=== PATIENT | male | born 1940 | race Caucasian/White ===

== ENCOUNTER 2016-03-01 09:51 | Outpatient (RCR) | payer MEDICARE, OTHER ==
--- OUTSIDE RECORDS SUMMARY | 2015-12-15 14:55 | XMS REPORT | Continuity of Care Document ---
Author Author [facility] Organization [facility] Address Unknown Phone Unavailable Care Team Providers Care Netbackup Admin Name Role Phone Joshua Beard PCP [phone] Source Comments Some departments are not documenting in the electronic medical record. If you do not see the information that you expected, contact Release of Information in the Health Information Management department at [phone] for further assistance in locating additional records.[facility] Active Allergies and Adverse Reactions No Known Allergies Current Medications Prescription Sig. Disp. Refills Start End Date Status Date lisinopril/hydrochlorothi Take 1 Tab by mouth Active azide (ZESTORETIC) daily. 20/12.5 mg tablet 1 Tab MULTIVITAMIN PO Take 1 Tab by mouth Active daily. Active Problems Problem Noted Date On supplemental oxygen therapy 01/07/2015 Overview: 2 L Lung cancer (HCC) 01/07/2015 Social History Tobacco Use Types Packs/Day Years Used Date Former Smoker Cigarettes 2 56 Quit: 08/10/2012 Smokeless Tobacco: Chew Current User Alcohol Use Drinks/Week oz/Week Comments Yes 7-10 Shots of 4.2 - 6.0 liquor Last Filed Vital Signs Vital Sign Reading Time Taken Blood Pressure 136/75 01/18/2015 9:00 AM DIRECTOR PRODUCT Pulse 84 01/18/2015 9:00 AM DIRECTOR PRODUCT Temperature 36.5 C (97.7 F) 01/18/2015 8:16 AM DIRECTOR PRODUCT Respiratory Rate - - Height 1.803 m (5' 11") 01/18/2015 6:42 AM DIRECTOR PRODUCT Weight 75.8 kg (167 lb 1.7 oz) 01/18/2015 6:42 AM DIRECTOR PRODUCT Body Mass Index 23.32 01/18/2015 6:42 AM DIRECTOR PRODUCT Oxygen Saturation 93% 01/18/2015 9:00 AM DIRECTOR PRODUCT Plan of Care Health Maintenance Due Date Last Done Comments Physical (Comprehensive) 1947 Exam Pertussis Vaccine 1952 Tetanus Vaccine 1958 Colorectal Cancer 11/28/1991 Screening Shingles Vaccine 2001 Prevnar/Pneumovax (#1) 2006 Influenza Vaccine 11/11/2015 Results from Last 3 Months Not on file
[2016-01-31 14:49] LABS: BASOPHILS % (AUTO) 0 % (0-10); EOSINOPHILS # (AUTO) 0.2 10^3/uL (0.0-0.3); EOSINOPHILS % (AUTO) 2 % (0-10); LYMPHOCYTES # (AUTO) 1.2 X 10^3 (1.0-4.0); LYMPHOCYTES % (AUTO) 17 % (12-44); MEAN CORPUSCULAR HEMOGLOBIN 31 PG (25-34); MEAN CORPUSCULAR HGB CONC 33 G/DL (32-36); MEAN CORPUSCULAR VOLUME 94 FL (80-99); MEAN PLATELET VOLUME 9.4 FL (7.4-10.4); MONOCYTES # (AUTO) 0.8 X 10^3 (0.0-1.0); MONOCYTES % (AUTO) 11 % (0-12); NEUTROPHILS # (AUTO) 4.6 X 10^3 (1.8-7.8); NEUTROPHILS % (AUTO) 69 % (42-75); PLATELET COUNT 264 10^3/uL (130-400); RED BLOOD COUNT 4.94 10^6/uL (4.35-5.85); RED CELL DISTRIBUTION WIDTH 15.9 % (10.0-14.5); WHITE BLOOD COUNT 6.7 10^3/uL (4.3-11.0)
[2016-01-31 15:36] LABS: ALANINE AMINOTRANSFERASE 9 U/L (0-55); ANION GAP 9 MMOL/L (5-14); ASPARTATE AMINO TRANSFERASE 17 U/L (5-34); BILIRUBIN,TOTAL 0.5 MG/DL (0.1-1.0); BLOOD UREA NITROGEN 11 MG/DL (7-18); BUN/CREATININE RATIO 14; CALCIUM 8.8 MG/DL (8.5-10.1); CARBON DIOXIDE 26 MMOL/L (21-32); CHLORIDE 105 MMOL/L (98-107); CREATININE SERUM 0.76 MG/DL (0.60-1.30); GFR ESTIMATED > 60; GLUCOSE 97 MG/DL (70-105); POTASSIUM 3.8 MMOL/L (3.6-5.0); SODIUM 140 MMOL/L (135-145); TOTAL PROTEIN 6.7 G/DL (6.4-8.2)
[~2016-03-01 09:51] MED LIST: HYDR-3812 PO; HYDROcodone/APAP 5 MG/325 MG (LORTAB) CANCER CTR PO ONE; LISI1TAB8 PO; MULT-873 PO
[2016-03-01 10:31] LABS: BASOPHILS % (AUTO) 1 % (0-10); EOSINOPHILS # (AUTO) 0.2 10^3/uL (0.0-0.3); EOSINOPHILS % (AUTO) 3 % (0-10); LYMPHOCYTES # (AUTO) 1.1 X 10^3 (1.0-4.0); LYMPHOCYTES % (AUTO) 17 % (12-44); MEAN CORPUSCULAR HEMOGLOBIN 31 PG (25-34); MEAN CORPUSCULAR HGB CONC 33 G/DL (32-36); MEAN CORPUSCULAR VOLUME 95 FL (80-99); MEAN PLATELET VOLUME 9.4 FL (7.4-10.4); MONOCYTES # (AUTO) 0.7 X 10^3 (0.0-1.0); MONOCYTES % (AUTO) 11 % (0-12); NEUTROPHILS # (AUTO) 4.3 X 10^3 (1.8-7.8); NEUTROPHILS % (AUTO) 68 % (42-75); PLATELET COUNT 219 10^3/uL (130-400); RED BLOOD COUNT 4.73 10^6/uL (4.35-5.85); RED CELL DISTRIBUTION WIDTH 15.4 % (10.0-14.5); WHITE BLOOD COUNT 6.4 10^3/uL (4.3-11.0)
[2016-03-01 11:01] LABS: ALANINE AMINOTRANSFERASE 12 U/L (0-55); ALBUMIN 3.8 G/DL (3.2-4.5); ANION GAP 8 MMOL/L (5-14); ASPARTATE AMINO TRANSFERASE 20 U/L (5-34); BILIRUBIN,TOTAL 0.4 MG/DL (0.1-1.0); BLOOD UREA NITROGEN 14 MG/DL (7-18); BUN/CREATININE RATIO 18; CALCIUM 8.8 MG/DL (8.5-10.1); CARBON DIOXIDE 28 MMOL/L (21-32); CHLORIDE 105 MMOL/L (98-107); CREATININE SERUM 0.77 MG/DL (0.60-1.30); GFR ESTIMATED > 60; GLUCOSE 98 MG/DL (70-105); SODIUM 141 MMOL/L (135-145); TOTAL PROTEIN 6.6 G/DL (6.4-8.2)
== END 2016-03-14 | disposition home or self-care (01) ==
LOC: ONC 09:51
PROVIDERS: ATTEND Internal Medicine Hematology & Oncology
DX: C34.2 Malignant neoplasm of middle lobe, bronchus or lung (principal); C77.1 Secondary and unspecified malignant neoplasm of intrathoracic lymph nodes; I10 Essential (primary) hypertension; J44.9 Chronic obstructive pulmonary disease, unspecified; E03.9 Hypothyroidism, unspecified; I48.91 Unspecified atrial fibrillation; F17.220 Nicotine dependence, chewing tobacco, uncomplicated; Z79.899 Other long term (current) drug therapy; Z79.01 Long term (current) use of anticoagulants
CPT/HCPCS: 36591; 80053; 85025; 99213

== ENCOUNTER → 2016-04-11 | Outpatient (CLI) | payer MEDICARE, OTHER ==
[~2016-04-11] MED LIST changes: -HYDROcodone/APAP 5 MG/325 MG (LORTAB) CANCER CTR PO ONE
== END ==
LOC: EDSTATUS 03-15 11:02 → FS 12:20
PROVIDERS: ATTEND Internal Medicine Hematology & Oncology
DX: C34.2 Malignant neoplasm of middle lobe, bronchus or lung (principal); C77.1 Secondary and unspecified malignant neoplasm of intrathoracic lymph nodes; I10 Essential (primary) hypertension; J44.9 Chronic obstructive pulmonary disease, unspecified; E03.9 Hypothyroidism, unspecified; I48.91 Unspecified atrial fibrillation; F17.220 Nicotine dependence, chewing tobacco, uncomplicated; Z79.899 Other long term (current) drug therapy; Z79.01 Long term (current) use of anticoagulants; Z45.2 Encounter for adjustment and management of vascular access device
CPT/HCPCS: 96523

== ENCOUNTER → 2016-05-23 | Outpatient (CLI) | payer MEDICARE, OTHER ==
--- OUTSIDE RECORDS SUMMARY | 2016-05-23 08:39 | XMS REPORT | Continuity of Care Document ---
Author Author [facility] Organization [facility] Address Unknown Phone Unavailable Care Team Providers Care Recordist Name Role Phone Joshua Beard PCP [phone] Source Comments Some departments are not documenting in the electronic medical record. If you do not see the information that you expected, contact Release of Information in the Health Information Management department at [phone] for further assistance in locating additional records.[facility] Active Allergies and Adverse Reactions No Known [...] Taken Blood Pressure 136/75 01/18/2015 9:00 AM TIMBER TREATING TANK OPERATOR Pulse 84 01/18/2015 9:00 AM TIMBER TREATING TANK OPERATOR Temperature 36.5 C (97.7 F) 01/18/2015 8:16 AM TIMBER TREATING TANK OPERATOR Respiratory Rate - - Height 1.803 m (5' 11") 01/18/2015 6:42 AM TIMBER TREATING TANK OPERATOR Weight 75.8 kg (167 lb 1.7 oz) 01/18/2015 6:42 AM TIMBER TREATING TANK OPERATOR Body Mass Index 23.32 01/18/2015 6:42 AM TIMBER TREATING TANK OPERATOR Oxygen Saturation 93% 01/18/2015 9:00 AM TIMBER TREATING TANK OPERATOR Plan of Care Health Maintenance Due Date Last Done Comments Physical (Comprehensive) 1947 Exam Pertussis Vaccine 1952 Tetanus Vaccine 1958 Colorectal Cancer 11/28/1991 Screening Shingles Vaccine 2001 Prevnar/Pneumovax (#1) 2006 Influenza Vaccine 11/11/2015 Results from Last 3 Months Not on file
--- NOTE | 2016-05-24 11:33 | Diagnostic Imaging Report ---
EXAMINATION: PET-CT. TECHNIQUE: Serum glucose level at the time of the study is: 89 mg/dL. 12.3 mCi of FDG was administered intravenously followed by obtaining PET images with corresponding noncontrast CT scan images. The CT scan was performed for anatomic correlation and attenuation correction and was not performed according to the diagnostic protocol of the areas covered. The scan was performed from the head to mid thighs. INDICATION: Squamous cell lung cancer followup. COMPARISON: 11/30/2015 PET and 02/24/2016 CT scan. FINDINGS: There is interval progression pf significant enlargement of a left lung base nodule now measuring 2.8 cm and is the associated with avid FDG uptake with a maximum SUV of 11. There are also FDG avid small sized left hilar lymph nodes measuring approximately 1 cm in size. There is minimal FDG uptake seen in a subcentimeter right paratracheal lymph node as well. These findings are new from the previous study. The findings are compatible with metastatic disease. There are fibrotic changes seen in the right lung and perihilar region. No significant FDG uptake is seen. Background severe emphysematous changes are noted. A groundglass nodule measuring 1 cm in the left lower lobe laterally at the upper hilar level demonstrates no associated increased FDG uptake. There is no suspicious hypermetabolic mass seen in the head or neck. Symmetric FDG uptake in the brain is noted. In the abdomen and pelvis, there is expected urinary tract activity from tracer excretion with no suspicious hypermetabolic mass or enlarged lymph node. IMPRESSION: Enlarged left lung base with an avidly hypermetabolic nodule now measuring 2.8 cm with associated small hypermetabolic left hilar lymph nodes, compatible with metastases. There is question of an early subcentimeter right paratracheal involved lymph node as well. Dictated by: Dictated on workstation # [id number]
== END ==
LOC: RAD 08:36
PROVIDERS: ATTEND Internal Medicine Hematology & Oncology
DX: C34.2 Malignant neoplasm of middle lobe, bronchus or lung (principal)

== ENCOUNTER → 2016-08-15 | Outpatient (CLI) | payer MEDICARE, OTHER ==
[~2016-08-15] MED LIST changes: +BARIUM SUSPENSION 2.1% (VANILLA SILQ) 450 ML PO ONE; +IOHEXOL 350 MG/ML 100 ML (OMNIPAQUE 350) VIAL IV ONE; +NS 100 ML (IVPB) BAG IV ONE
[2016-08-15] MEDS: CATHETER FLUSH 10 ML SYR IV PRN ×2 (11:53→12:10)
--- NOTE | 2016-08-15 15:34 | Diagnostic Imaging Report ---
Whole body bone scan. Technique: After the intravenous administration of 27 mCi of Technetium 99m MDP, whole body delayed phase bone scan images were obtained with lateral views of the head and neck and the chest regions. Indication: Squamous cell carcinoma. COMPARISON: 08/31/2015 Findings: There is prominent increased activity along the sternoclavicular joints and shoulders and knees. There is increased activity in the cervical spine as well. This is similar to the previous study and is in a degenerative pattern. No developing suspicious foci of increased radiotracer uptake seen to suggest metastatic disease. IMPRESSION: Stable bone scan with no scintigraphic evidence of osseous metastasis. Dictated by: Dictated on workstation # [id number]
--- NOTE | 2016-08-15 17:42 | Diagnostic Imaging Report ---
PROCEDURE: CT chest and abdomen with contrast. TECHNIQUE: Multiple contiguous axial images were obtained through the chest and abdomen after the administration of intravenous contrast. INDICATION: Squamous cell carcinoma. COMPARISON: PET of 05/23/[address] of 02/24/2016. FINDINGS: CT chest: The mass in the left lower lung at the lung base measuring 3.6 x 3.4 cm is slightly larger when compared to the PET of 05/23/2016 when it measured 3.1 x 2.5 cm. In the right lung, there is stable consolidation and air bronchograms in the superior segment of the right lower lobe and posterior perihilar area with small effusion. There is a right perihilar mass which appears stable and is difficult to measure with accuracy due to its complex shape around the superior right pulmonary vein and partially encasing the right main pulmonary artery, mimicking a filling defect. It however appears to be contiguous with extrinsic right perihilar node. Overall size in maximum axial plane is 4.4 x 3.3 cm compatible to prior measurements. An infracarinal lymph node measuring 1 cm is seen. There are slightly enlarged lymph nodes around the left hilum, most prominent is 1.4 cm node larger compared to 02/24/2016 and may correlate with a hypermetabolic left hilar node seen on PET. This can also be compared to the unenhanced localizer CT with the recent PET. No axillary lymphadenopathy is noted. No pericardial or pleural effusion. The heart size is normal. The thoracic aorta is normal in caliber. The osseous structures demonstrate no definite mass. CT abdomen: The liver is fairly homogeneous with no focal mass. The spleen is not enlarged. The pancreas and the adrenal glands appear unremarkable. Cholecystectomy clips are noted. The kidneys have symmetric enhancement and contrast excretion. There is no hydronephrosis. The abdominal aorta demonstrates atherosclerotic changes and mild ectasia distally. No para-aortic significantly enlarged lymph nodes seen. The osseous structures appear grossly unremarkable. IMPRESSION: CT chest: 1. A 3.6 cm left lung base metastasis is minimally enlarged. 2. Mildly enlarged left hilar lymph nodes. 3. Stable right hilar mass with partial encasement of the right main pulmonary artery. 4. Stable posterior right perihilar consolidation. 5. Severe emphysema. CT abdomen: No evidence of metastasis. Dictated by: Dictated on workstation # [id number]
== END ==
LOC: CARD 11:26
PROVIDERS: ATTEND Nurse Practitioner Adult Health
DX: C34.2 Malignant neoplasm of middle lobe, bronchus or lung (principal); J43.9 Emphysema, unspecified
CPT/HCPCS: 71260; 74160; 78306

== ENCOUNTER → 2016-08-23 | Outpatient (RCR) | payer MEDICARE, OTHER ==
--- OUTSIDE RECORDS SUMMARY | 2016-05-25 10:26 | XMS REPORT | Continuity of Care Document ---
Author Author [facility] Organization [facility] Address Unknown Phone Unavailable Care Team Providers Care Dough Mixer Name Role Phone Joshua Beard PCP [phone] Source Comments Some departments are not documenting in the electronic medical record. If you do not see the information that you expected, contact Release of Information in the Health Information Management department at [phone] for further assistance in locating additional records.[facility] Active Allergies and Adverse Reactions No Known [...] Taken Blood Pressure 136/75 01/18/2015 9:00 AM GREEN TIRE INSPECTOR Pulse 84 01/18/2015 9:00 AM GREEN TIRE INSPECTOR Temperature 36.5 C (97.7 F) 01/18/2015 8:16 AM GREEN TIRE INSPECTOR Respiratory Rate - - Height 1.803 m (5' 11") 01/18/2015 6:42 AM GREEN TIRE INSPECTOR Weight 75.8 kg (167 lb 1.7 oz) 01/18/2015 6:42 AM GREEN TIRE INSPECTOR Body Mass Index 23.32 01/18/2015 6:42 AM GREEN TIRE INSPECTOR Oxygen Saturation 93% 01/18/2015 9:00 AM GREEN TIRE INSPECTOR Plan of Care Health Maintenance Due Date Last Done Comments Physical (Comprehensive) 1947 Exam Pertussis Vaccine 1952 Tetanus Vaccine 1958 Colorectal Cancer 11/28/1991 Screening Shingles Vaccine 2001 Prevnar/Pneumovax (#1) 2006 Influenza Vaccine 11/11/2015 Results from Last 3 Months Not on file
[2016-05-25 10:45] LABS: BASOPHILS % (AUTO) 0 % (0-10); EOSINOPHILS # (AUTO) 0.1 10^3/uL (0.0-0.3); EOSINOPHILS % (AUTO) 2 % (0-10); LYMPHOCYTES # (AUTO) 1.1 X 10^3 (1.0-4.0); LYMPHOCYTES % (AUTO) 20 % (12-44); MEAN CORPUSCULAR HEMOGLOBIN 33 PG (25-34); MEAN CORPUSCULAR HGB CONC 33 G/DL (32-36); MEAN CORPUSCULAR VOLUME 98 FL (80-99); MEAN PLATELET VOLUME 9.3 FL (7.4-10.4); MONOCYTES # (AUTO) 0.7 X 10^3 (0.0-1.0); MONOCYTES % (AUTO) 13 % (0-12); NEUTROPHILS # (AUTO) 3.6 X 10^3 (1.8-7.8); NEUTROPHILS % (AUTO) 65 % (42-75); PLATELET COUNT 228 10^3/uL (130-400); RED CELL DISTRIBUTION WIDTH 15.4 % (10.0-14.5); WHITE BLOOD COUNT 5.5 10^3/uL (4.3-11.0)
[2016-05-25 11:09] LABS: ALANINE AMINOTRANSFERASE 10 U/L (0-55); ALBUMIN 3.6 G/DL (3.2-4.5); ANION GAP 10 MMOL/L (5-14); ASPARTATE AMINO TRANSFERASE 16 U/L (5-34); BILIRUBIN,TOTAL 0.5 MG/DL (0.1-1.0); BLOOD UREA NITROGEN 12 MG/DL (7-18); BUN/CREATININE RATIO 15; CALCIUM 8.5 MG/DL (8.5-10.1); CARBON DIOXIDE 26 MMOL/L (21-32); CHLORIDE 107 MMOL/L (98-107); GFR ESTIMATED > 60; GLUCOSE 123 MG/DL (70-105); POTASSIUM 3.7 MMOL/L (3.6-5.0); SODIUM 143 MMOL/L (135-145); TOTAL PROTEIN 6.5 G/DL (6.4-8.2)
[2016-05-30 15:29] LABS: THYROID STIMULATING HORMONE 2.78 UIU/ML (0.35-4.94)
[2016-06-14 09:57] LABS: BASOPHILS % (AUTO) 1 % (0-10); EOSINOPHILS # (AUTO) 0.2 10^3/uL (0.0-0.3); EOSINOPHILS % (AUTO) 3 % (0-10); LYMPHOCYTES # (AUTO) 0.9 X 10^3 (1.0-4.0); LYMPHOCYTES % (AUTO) 13 % (12-44); MEAN CORPUSCULAR HEMOGLOBIN 33 PG (25-34); MEAN CORPUSCULAR HGB CONC 34 G/DL (32-36); MEAN CORPUSCULAR VOLUME 98 FL (80-99); MEAN PLATELET VOLUME 9.7 FL (7.4-10.4); MONOCYTES # (AUTO) 0.8 X 10^3 (0.0-1.0); MONOCYTES % (AUTO) 12 % (0-12); NEUTROPHILS % (AUTO) 72 % (42-75); PLATELET COUNT 186 10^3/uL (130-400); RED BLOOD COUNT 5.09 10^6/uL (4.35-5.85); RED CELL DISTRIBUTION WIDTH 14.6 % (10.0-14.5)
[2016-06-14 10:23] LABS: ALANINE AMINOTRANSFERASE 9 U/L (0-55); ALBUMIN 3.7 G/DL (3.2-4.5); ANION GAP 11 MMOL/L (5-14); ASPARTATE AMINO TRANSFERASE 18 U/L (5-34); BILIRUBIN,TOTAL 0.5 MG/DL (0.1-1.0); BLOOD UREA NITROGEN 8 MG/DL (7-18); BUN/CREATININE RATIO 10; CALCIUM 8.9 MG/DL (8.5-10.1); CARBON DIOXIDE 23 MMOL/L (21-32); CHLORIDE 110 MMOL/L (98-107); GFR ESTIMATED > 60; GLUCOSE 93 MG/DL (70-105); POTASSIUM 3.6 MMOL/L (3.6-5.0); SODIUM 144 MMOL/L (135-145); TOTAL PROTEIN 6.7 G/DL (6.4-8.2)
[2016-06-14 12:20] LABS: THYROID STIMULATING HORMONE 0.33 UIU/ML (0.35-4.94)
[2016-06-28 14:44] LABS: BASOPHILS % (AUTO) 1 % (0-10); EOSINOPHILS # (AUTO) 0.2 10^3/uL (0.0-0.3); EOSINOPHILS % (AUTO) 4 % (0-10); LYMPHOCYTES # (AUTO) 1.2 X 10^3 (1.0-4.0); LYMPHOCYTES % (AUTO) 18 % (12-44); MEAN CORPUSCULAR HEMOGLOBIN 32 PG (25-34); MEAN CORPUSCULAR HGB CONC 33 G/DL (32-36); MEAN CORPUSCULAR VOLUME 98 FL (80-99); MEAN PLATELET VOLUME 9.3 FL (7.4-10.4); MONOCYTES # (AUTO) 0.8 X 10^3 (0.0-1.0); MONOCYTES % (AUTO) 13 % (0-12); NEUTROPHILS # (AUTO) 4.1 X 10^3 (1.8-7.8); NEUTROPHILS % (AUTO) 65 % (42-75); PLATELET COUNT 218 10^3/uL (130-400); RED CELL DISTRIBUTION WIDTH 14.8 % (10.0-14.5); WHITE BLOOD COUNT 6.4 10^3/uL (4.3-11.0)
[2016-06-28 15:11] LABS: ALANINE AMINOTRANSFERASE 8 U/L (0-55); ALBUMIN 3.6 G/DL (3.2-4.5); ANION GAP 9 MMOL/L (5-14); ASPARTATE AMINO TRANSFERASE 16 U/L (5-34); BILIRUBIN,TOTAL 0.4 MG/DL (0.1-1.0); BLOOD UREA NITROGEN 9 MG/DL (7-18); BUN/CREATININE RATIO 12; CALCIUM 8.4 MG/DL (8.5-10.1); CARBON DIOXIDE 25 MMOL/L (21-32); CHLORIDE 109 MMOL/L (98-107); CREATININE SERUM 0.74 MG/DL (0.60-1.30); GFR ESTIMATED > 60; GLUCOSE 98 MG/DL (70-105); POTASSIUM 3.5 MMOL/L (3.6-5.0); SODIUM 143 MMOL/L (135-145); TOTAL PROTEIN 6.3 G/DL (6.4-8.2)
[2016-06-28 15:31] LABS: THYROID STIMULATING HORMONE 1.56 UIU/ML (0.35-4.94)
--- NOTE | 2016-06-28 17:29 | Diagnostic Imaging Report ---
INDICATION: Lung cancer. COPD. FINDINGS: Two views of the chest show normal heart size and vascularity. There is right perihilar atelectasis, infiltrate and/or scarring which is similar to the CT from 02/24/2016. There is a 3.2 cm mass in the left lower lobe which is an increase in size from the prior CT. The remainder of the lungs is clear. There is obstructive airway disease. There is no effusion or pneumothorax. IMPRESSION: Stable right hilum compared to the prior CT. There is a 3.2 cm mass in the left lower lobe which is an increase in size from the prior exam. Dictated by: Dictated on workstation # [id number]
[2016-07-12 13:10] LABS: BASOPHILS % (AUTO) 1 % (0-10); EOSINOPHILS # (AUTO) 0.2 10^3/uL (0.0-0.3); EOSINOPHILS % (AUTO) 3 % (0-10); LYMPHOCYTES # (AUTO) 1.3 X 10^3 (1.0-4.0); LYMPHOCYTES % (AUTO) 21 % (12-44); MEAN CORPUSCULAR HEMOGLOBIN 32 PG (25-34); MEAN CORPUSCULAR HGB CONC 33 G/DL (32-36); MEAN CORPUSCULAR VOLUME 98 FL (80-99); MEAN PLATELET VOLUME 9.5 FL (7.4-10.4); MONOCYTES % (AUTO) 17 % (0-12); NEUTROPHILS # (AUTO) 3.4 X 10^3 (1.8-7.8); NEUTROPHILS % (AUTO) 57 % (42-75); PLATELET COUNT 212 10^3/uL (130-400); RED BLOOD COUNT 5.12 10^6/uL (4.35-5.85); RED CELL DISTRIBUTION WIDTH 14.5 % (10.0-14.5)
[2016-07-12 13:35] LABS: ALANINE AMINOTRANSFERASE 19 U/L (0-55); ALBUMIN 3.9 G/DL (3.2-4.5); ANION GAP 10 MMOL/L (5-14); ASPARTATE AMINO TRANSFERASE 21 U/L (5-34); BILIRUBIN,TOTAL 0.5 MG/DL (0.1-1.0); BLOOD UREA NITROGEN 13 MG/DL (7-18); BUN/CREATININE RATIO 16; CALCIUM 8.7 MG/DL (8.5-10.1); CARBON DIOXIDE 27 MMOL/L (21-32); CHLORIDE 106 MMOL/L (98-107); CREATININE SERUM 0.83 MG/DL (0.60-1.30); GFR ESTIMATED > 60; GLUCOSE 112 MG/DL (70-105); POTASSIUM 3.6 MMOL/L (3.6-5.0); SODIUM 143 MMOL/L (135-145); TOTAL PROTEIN 6.7 G/DL (6.4-8.2)
[2016-07-12 13:56] LABS: THYROID STIMULATING HORMONE 1.16 UIU/ML (0.35-4.94)
--- NOTE | 2016-07-12 15:54 | Diagnostic Imaging Report ---
PA and lateral views of the chest. INDICATION: Squamous cell carcinoma. COMPARISON: 06/28/2016. FINDINGS: There is a left lung base mass measuring 3.1 cm similar to the prior exam. Right infrahilar mass with fibrotic changes and loss of volume is seen similar to the previous study. The heart size is normal. No effusion or pneumothorax. The mediastinum and rita is stable. The infusion port is seen. IMPRESSION: Right infrahilar mass with fibrotic components and left lung base 3.1 cm mass with no significant change from 06/28/2016. Dictated by: Dictated on workstation # [id number]
[2016-07-19 15:20] LABS: BASOPHILS % (AUTO) 1 % (0-10); EOSINOPHILS # (AUTO) 0.3 10^3/uL (0.0-0.3); EOSINOPHILS % (AUTO) 5 % (0-10); LYMPHOCYTES % (AUTO) 17 % (12-44); MEAN CORPUSCULAR HEMOGLOBIN 32 PG (25-34); MEAN CORPUSCULAR HGB CONC 33 G/DL (32-36); MEAN CORPUSCULAR VOLUME 98 FL (80-99); MEAN PLATELET VOLUME 9.7 FL (7.4-10.4); MONOCYTES # (AUTO) 0.9 X 10^3 (0.0-1.0); MONOCYTES % (AUTO) 14 % (0-12); NEUTROPHILS # (AUTO) 3.8 X 10^3 (1.8-7.8); NEUTROPHILS % (AUTO) 63 % (42-75); PLATELET COUNT 189 10^3/uL (130-400); RED BLOOD COUNT 5.29 10^6/uL (4.35-5.85); RED CELL DISTRIBUTION WIDTH 14.2 % (10.0-14.5); WHITE BLOOD COUNT 5.9 10^3/uL (4.3-11.0)
[2016-07-19 15:38] LABS: ALANINE AMINOTRANSFERASE 12 U/L (0-55); ALBUMIN 3.9 G/DL (3.2-4.5); ANION GAP 8 MMOL/L (5-14); ASPARTATE AMINO TRANSFERASE 17 U/L (5-34); BILIRUBIN,TOTAL 0.5 MG/DL (0.1-1.0); BLOOD UREA NITROGEN 10 MG/DL (7-18); BUN/CREATININE RATIO 12; CARBON DIOXIDE 27 MMOL/L (21-32); CHLORIDE 106 MMOL/L (98-107); CREATININE SERUM 0.83 MG/DL (0.60-1.30); GFR ESTIMATED > 60; GLUCOSE 102 MG/DL (70-105); POTASSIUM 4.5 MMOL/L (3.6-5.0); SODIUM 141 MMOL/L (135-145); TOTAL PROTEIN 6.8 G/DL (6.4-8.2)
--- NOTE | 2016-07-26 10:07 | Diagnostic Imaging Report ---
INDICATION: History of lung cancer. COMPARISON: 07/12/2016 FINDINGS: Frontal and lateral radiographic views of the chest were obtained and again demonstrate dense opacification of the right perihilar region with mild asymmetric volume loss and tenting of the right hemidiaphragm. Mass like opacity is again identified within the left lung base. Overall, aeration is unchanged. There is no large effusion or pneumothorax. Cardiac silhouette and pulmonary vasculature is stable. Left-sided subclavian Port-A-Cath is again noted and is stable in position. IMPRESSION: 1. Stable appearance of the chest as described above. Dictated by: Dictated on workstation # [id number]
[2016-07-26 10:28] LABS: BASOPHILS % (AUTO) 0 % (0-10); EOSINOPHILS # (AUTO) 0.3 10^3/uL (0.0-0.3); EOSINOPHILS % (AUTO) 4 % (0-10); LYMPHOCYTES # (AUTO) 0.9 X 10^3 (1.0-4.0); LYMPHOCYTES % (AUTO) 13 % (12-44); MEAN CORPUSCULAR HEMOGLOBIN 33 PG (25-34); MEAN CORPUSCULAR HGB CONC 33 G/DL (32-36); MEAN CORPUSCULAR VOLUME 97 FL (80-99); MEAN PLATELET VOLUME 9.5 FL (7.4-10.4); MONOCYTES # (AUTO) 0.7 X 10^3 (0.0-1.0); MONOCYTES % (AUTO) 10 % (0-12); NEUTROPHILS # (AUTO) 5.1 X 10^3 (1.8-7.8); NEUTROPHILS % (AUTO) 73 % (42-75); PLATELET COUNT 187 10^3/uL (130-400); RED BLOOD COUNT 5.07 10^6/uL (4.35-5.85); RED CELL DISTRIBUTION WIDTH 14.4 % (10.0-14.5)
[2016-07-26 10:53] LABS: ALANINE AMINOTRANSFERASE 15 U/L (0-55); ALBUMIN 3.7 G/DL (3.2-4.5); ANION GAP 6 MMOL/L (5-14); ASPARTATE AMINO TRANSFERASE 17 U/L (5-34); BILIRUBIN,TOTAL 0.6 MG/DL (0.1-1.0); BLOOD UREA NITROGEN 11 MG/DL (7-18); BUN/CREATININE RATIO 15; CALCIUM 8.9 MG/DL (8.5-10.1); CARBON DIOXIDE 27 MMOL/L (21-32); CHLORIDE 109 MMOL/L (98-107); CREATININE SERUM 0.75 MG/DL (0.60-1.30); GFR ESTIMATED > 60; GLUCOSE 102 MG/DL (70-105); POTASSIUM 3.7 MMOL/L (3.6-5.0); SODIUM 142 MMOL/L (135-145); TOTAL PROTEIN 6.4 G/DL (6.4-8.2)
--- NOTE | 2016-08-09 13:09 | Diagnostic Imaging Report ---
INDICATION: Lung cancer. PA and lateral chest. There is a large right infrahilar mass. There is a 3.8-cm mass in the left lower lung. Right hilar mass measures approximately 5.4 cm in diameter. Left subclavian Port-A-Cath tip projects over the SVC. There are emphysematous changes in the right upper lung. IMPRESSION: Right hilar and left lower lobe lung mass is unchanged from 07/26/2016. No acute abnormality seen. Dictated by: Dictated on workstation # [id number]
[2016-08-09 13:30] LABS: BASOPHILS % (AUTO) 0 % (0-10); EOSINOPHILS # (AUTO) 0.4 10^3/uL (0.0-0.3); EOSINOPHILS % (AUTO) 6 % (0-10); LYMPHOCYTES # (AUTO) 1.3 X 10^3 (1.0-4.0); LYMPHOCYTES % (AUTO) 18 % (12-44); MEAN CORPUSCULAR HEMOGLOBIN 32 PG (25-34); MEAN CORPUSCULAR HGB CONC 33 G/DL (32-36); MEAN CORPUSCULAR VOLUME 98 FL (80-99); MEAN PLATELET VOLUME 9.6 FL (7.4-10.4); MONOCYTES # (AUTO) 0.8 X 10^3 (0.0-1.0); MONOCYTES % (AUTO) 11 % (0-12); NEUTROPHILS # (AUTO) 4.7 X 10^3 (1.8-7.8); NEUTROPHILS % (AUTO) 65 % (42-75); PLATELET COUNT 222 10^3/uL (130-400); RED BLOOD COUNT 5.17 10^6/uL (4.35-5.85); RED CELL DISTRIBUTION WIDTH 14.9 % (10.0-14.5); WHITE BLOOD COUNT 7.2 10^3/uL (4.3-11.0)
[2016-08-09 13:55] LABS: ALANINE AMINOTRANSFERASE 11 U/L (0-55); ALBUMIN 3.7 G/DL (3.2-4.5); ANION GAP 10 MMOL/L (5-14); ASPARTATE AMINO TRANSFERASE 15 U/L (5-34); BILIRUBIN,TOTAL 0.4 MG/DL (0.1-1.0); BLOOD UREA NITROGEN 12 MG/DL (7-18); BUN/CREATININE RATIO 15; CALCIUM 8.7 MG/DL (8.5-10.1); CARBON DIOXIDE 25 MMOL/L (21-32); CHLORIDE 108 MMOL/L (98-107); CREATININE SERUM 0.82 MG/DL (0.60-1.30); GFR ESTIMATED > 60; GLUCOSE 105 MG/DL (70-105); POTASSIUM 3.5 MMOL/L (3.6-5.0); SODIUM 143 MMOL/L (135-145); TOTAL PROTEIN 6.5 G/DL (6.4-8.2)
[~2016-08-23] VITALS: Ht 182.9 cm; Wt 77.1 kg
[~2016-08-23] MED LIST changes: -BARIUM SUSPENSION 2.1% (VANILLA SILQ) 450 ML PO ONE; -IOHEXOL 350 MG/ML 100 ML (OMNIPAQUE 350) VIAL IV ONE; +NIVOLUMAB 200 MG, NIVOLUMAB 40 MG in NS (IVPB) CANCER CENTER 50 ML IV SCH; -NS 100 ML (IVPB) BAG IV ONE; +NS IV 500 ML (CANCER CENTER) 500 ML IV SCH
[2016-08-23 14:58] LABS: BASOPHILS % (AUTO) 0 % (0-10); EOSINOPHILS # (AUTO) 0.3 10^3/uL (0.0-0.3); EOSINOPHILS % (AUTO) 4 % (0-10); LYMPHOCYTES # (AUTO) 1.3 X 10^3 (1.0-4.0); LYMPHOCYTES % (AUTO) 16 % (12-44); MEAN CORPUSCULAR HEMOGLOBIN 32 PG (25-34); MEAN CORPUSCULAR HGB CONC 33 G/DL (32-36); MEAN CORPUSCULAR VOLUME 98 FL (80-99); MONOCYTES # (AUTO) 0.8 X 10^3 (0.0-1.0); MONOCYTES % (AUTO) 10 % (0-12); NEUTROPHILS # (AUTO) 5.5 X 10^3 (1.8-7.8); NEUTROPHILS % (AUTO) 70 % (42-75); PLATELET COUNT 189 10^3/uL (130-400); RED BLOOD COUNT 5.15 10^6/uL (4.35-5.85); RED CELL DISTRIBUTION WIDTH 14.9 % (10.0-14.5); WHITE BLOOD COUNT 7.9 10^3/uL (4.3-11.0)
[2016-08-23 15:15] LABS: ALANINE AMINOTRANSFERASE 11 U/L (0-55); ALBUMIN 3.9 GM/DL (3.2-4.5); ANION GAP 13 MMOL/L (5-14); ASPARTATE AMINO TRANSFERASE 18 U/L (5-34); BILIRUBIN,TOTAL 0.7 MG/DL (0.1-1.0); BLOOD UREA NITROGEN 16 MG/DL (7-18); BUN/CREATININE RATIO 19 (0-20); CALCIUM 8.9 MG/DL (8.5-10.1); CARBON DIOXIDE 23 MMOL/L (21-32); CHLORIDE 105 MMOL/L (98-107); CREATININE SERUM 0.85 MG/DL (0.60-1.30); GFR ESTIMATED > 60; GLUCOSE 91 MG/DL (70-105); POTASSIUM 3.9 MMOL/L (3.6-5.0); SODIUM 141 MMOL/L (135-145); TOTAL PROTEIN 6.5 GM/DL (6.4-8.2)
[2016-08-23 15:35] LABS: THYROID STIMULATING HORMONE 5.09 UIU/ML (0.35-4.94)
== END | disposition home or self-care (01) ==
LOC: ONC 05-25 10:23
PROVIDERS: ATTEND Internal Medicine Hematology & Oncology
DX: C34.2 Malignant neoplasm of middle lobe, bronchus or lung (principal); C77.1 Secondary and unspecified malignant neoplasm of intrathoracic lymph nodes; I10 Essential (primary) hypertension; J44.9 Chronic obstructive pulmonary disease, unspecified; E03.9 Hypothyroidism, unspecified; I48.91 Unspecified atrial fibrillation; F17.220 Nicotine dependence, chewing tobacco, uncomplicated; Z79.899 Other long term (current) drug therapy; Z79.01 Long term (current) use of anticoagulants; Z45.2 Encounter for adjustment and management of vascular access device
CPT/HCPCS: 36591; 71020; 80053; 84443; 85025; 96413; 99213

== ENCOUNTER → 2016-08-23 | Outpatient (CLI) | payer MEDICARE, OTHER ==
[~2016-08-23] MED LIST changes: +GADOBUTROL 7.5 MMOL/7.5 ML (GADAVIST) VIAL IV ONE; -NIVOLUMAB 200 MG, NIVOLUMAB 40 MG in NS (IVPB) CANCER CENTER 50 ML IV SCH; -NS IV 500 ML (CANCER CENTER) 500 ML IV SCH
--- NOTE | 2016-08-23 18:43 | Diagnostic Imaging Report ---
PROCEDURE: MR imaging of the brain with and without contrast. TECHNIQUE: Multiplanar, multisequence MR imaging of the brain was performed with and without contrast. INDICATION: History of lung carcinoma. Treated for cancer one and half years ago. Now having lightheadedness and dizziness since this morning. EXAMINATION: MRI brain with and without contrast 08/23/2016 Correlation made to a brain MRI dated 01/04/2015 FINDINGS: There is no evidence for restricted diffusion. Mild atrophy is noted. There are chronic ischemic changes in a periventricular distribution with deep white matter ischemic changes chronic in appearance. No mass, mass effect, or midline shift is seen and there is no hydrocephalus. Postcontrast images demonstrate normal enhancement with no abnormally enhancing masses or lesions appreciated. The paranasal sinuses and mastoid air cells demonstrate chronic appearing mucosal thickening with no acute disease visualized. IMPRESSION: 1. Chronic changes as discussed above with no acute abnormality appreciated. Dictated by: Dictated on workstation # [id number]
== END ==
LOC: RAD 15:59
PROVIDERS: ATTEND Nurse Practitioner Adult Health
DX: R42 Dizziness and giddiness (principal); R26.81 Unsteadiness on feet; R53.1 Weakness; C34.2 Malignant neoplasm of middle lobe, bronchus or lung
CPT/HCPCS: 70553

== ENCOUNTER → 2016-09-22 | Outpatient (CLI) | payer MEDICARE, OTHER ==
[~2016-09-22] MED LIST changes: -GADOBUTROL 7.5 MMOL/7.5 ML (GADAVIST) VIAL IV ONE
== END ==
LOC: CARD 10:32
PROVIDERS: ATTEND Internal Medicine Hematology & Oncology
DX: C34.2 Malignant neoplasm of middle lobe, bronchus or lung (principal); R55 Syncope and collapse; R42 Dizziness and giddiness; R00.0 Tachycardia, unspecified
CPT/HCPCS: 93306

== ENCOUNTER 2016-10-02 10:51 | Outpatient (RCR) | payer MEDICARE, OTHER | END 2016-12-09 | disposition home or self-care (01) | LOC: CARD 10:51 | PROVIDERS: ATTEND Internal Medicine Interventional Cardiology | DX: R42 Dizziness and giddiness; I45.9 Conduction disorder, unspecified | CPT/HCPCS: 93225; 93226 ==

== ENCOUNTER 2016-10-04 10:56 | Outpatient (RCR) | payer MEDICARE, OTHER | END 2016-12-09 | disposition home or self-care (01) | LOC: CARD 10:56 | PROVIDERS: ATTEND Internal Medicine Interventional Cardiology | DX: R42 Dizziness and giddiness; I45.9 Conduction disorder, unspecified ==

== ENCOUNTER → 2016-10-18 | Outpatient (CLI) | payer MEDICARE, OTHER ==
--- NOTE | 2016-10-18 14:37 | Diagnostic Imaging Report ---
PROCEDURE: CT chest and abdomen with contrast. TECHNIQUE: Multiple contiguous axial images were obtained through the chest and abdomen after the administration of intravenous contrast. INDICATION: COPD. History of lung cancer. Followup. COMPARISON: 08/15/2016 FINDINGS: CT chest: Evaluation of the lung johnson again demonstrates soft tissue mass within the lateral left lung base. This has increased in size when compared to prior exam. It now measures approximately 4.1 x 4.3 x 3.1 cm. This is in comparison to 3.5 x 3.6 x 2.4 cm previously. Prominent left hilar lymph node is stable, as it measures 1.1 x 1.2 cm on today's study, in comparison to similar remeasurements of 1.2 x 1.3 cm previously. There is background of severe obstructive disease. There is no new effusion or pneumothorax on the left. On the right, there is persistent soft tissue prominence about the right hilum. Findings are likely on the basis of residual soft tissue density with adjacent atelectasis and probable radiation changes. Small right effusion is also again noted. Overall, appearance on the right is stable. Bronchiectatic changes are again noted. Cardiomediastinal structures show normal heart size. There is no large pericardial effusion. There is calcified aortic and coronary atherosclerosis. Bony structures show age-related degenerative changes. No lytic or blastic osseous lesions are identified. CT abdomen: Multiple subcentimeter hypoenhancing renal parenchymal foci are noted, bilaterally. These are too small to adequately characterize on this exam, but are stable compared to prior study. Otherwise, the kidneys, adrenal glands, spleen, pancreas, and liver have a normal CT appearance. Included small bowel loops are nondistended. Normal appendix is included on this exam. There is no loculated fluid collection, free fluid, nor free air within the abdomen. No abnormal mesenteric or retroperitoneal adenopathy is seen. There is focal ectasia of the infrarenal abdominal aorta as it measures 2.8 x 2 cm. There is also diffuse calcified and noncalcified aortic atherosclerosis. Bony structures show no acute abnormalities. IMPRESSION: 1. Interval increase in size of malignant-appearing soft tissue mass in the left lung base. 2. Stable adjacent hilar adenopathy. 3. Stable prominent density about the right hilum with associated volume loss on the right with bronchiectasis and patchy and scattered airspace disease. Again, findings may be on the basis of residual soft tissue density with associated atelectasis and radiation changes. Overall appearance on the right is stable. 4. Multiple subcentimeter hypoenhancing rounded renal foci. Again, these may be on the basis of small cysts, but are too small to adequately characterize. Overall, appearance, however, is stable. 5. No adverse interval change to the abdomen. Dictated by: Dictated on workstation # [id number]
== END ==
LOC: RAD 12:38
PROVIDERS: ATTEND Nurse Practitioner Adult Health
DX: C34.2 Malignant neoplasm of middle lobe, bronchus or lung (principal); J44.9 Chronic obstructive pulmonary disease, unspecified; J47.9 Bronchiectasis, uncomplicated
CPT/HCPCS: 71260; 74160

== ENCOUNTER → 2016-10-31 | Outpatient (CLI) | payer MEDICARE, OTHER ==
--- NOTE | 2016-11-01 12:11 | Diagnostic Imaging Report ---
PET/CT. INDICATION: Squamous cell carcinoma of the lung. TECHNIQUE: PET/CT imaging was obtained from the base of the skull through the pelvis after the administration Of 11.26 mCi of F-[address] imaging was utilized for localization and attenuation correction purposes. The low energy CT utilized for attenuation correction is not considered to be of high enough spatial resolution to allow in and of itself a separate anatomical analysis. The previous PET/CT exam performed on 05/23/2016, noted an enlarged avidly hypermetabolic nodule in the left lung base with small hypermetabolic nodes. The nodule measured approximately 2.8 cm in size and had a maximum SUV of 11. The recent CT chest and abdomen exam of 10/18/2016, indicated that the nodule in the left lung base had increased in size and that it now measured 4.1 x 4.3 x 3.1 cm as opposed to 3.5 x 3.6 x 2.4 cm. The hilar adenopathy appeared stable. On this exam the mass in the left lung base is again evident. The mass is larger than noted on the previous PET/CT exam although not significantly changed when compared to the recent CT chest and abdomen exam. The mass remains hypermetabolic with a maximum SUV of 9.0. The two small slightly hypermetabolic nodes in the left hilum noted on the prior study are again evident and minimally larger. On the prior exam these nodes had a maximum SUV of 4.5. On this study the maximum SUV is now 5. There is also another node in the right paratracheal region which does seem more conspicuous than on the prior exam. This has a maximum SUV of 3.4. On the prior exam the maximum SUV in this area was only 1.8. Consequently this node may also be involved by neoplasm. In addition there is now a small focus of increased metabolic activity in the left supraclavicular region. This has developed in the interval since the prior exam, and this area has a maximum SUV of 4.3. There is a similar sized but less hyperintense (maximum SUV of 1.8) nodule in this same region. There is still no hypermetabolic activity below the diaphragm or in the neck. Physiologic activity is again seen in the kidneys, bowel, and bladder. The CT images do show that there is persistent volume loss in the right lung and that there is a prominent area of atelectasis/infiltrate in the right infrahilar region. These findings are similar to the prior exam. There are also severe emphysematous changes involving both lungs. The CT images fail to show any sign of an acute abnormality. There are innumerable diverticula in the sigmoid colon, but there is no sign of acute diverticulitis. The images of the intracranial contents are unremarkable for an acute abnormality. IMPRESSION: 1. The mass in the left lung base seen previously has increased in size since the prior PET/CT exam and still remains hypermetabolic. The nodes in the left hilum have not changed significantly in size but are slightly more hypermetabolic. New nodes in the right paratracheal region and in the left supraclavicular area have also developed, and these are slightly hypermetabolic and worrisome for neoplastic disease as well. 2. There is no other hypermetabolic activity to suggest the presence of neoplasm. 3. There is persistent prominent area of atelectasis/infiltrate in the right infrahilar region. 4. These [facility] Dictated by: Dictated on workstation # [id number]
== END ==
LOC: RAD 09:13
PROVIDERS: ATTEND Internal Medicine Hematology & Oncology
DX: C34.2 Malignant neoplasm of middle lobe, bronchus or lung (principal)

== ENCOUNTER 2016-11-20 12:56 | Outpatient (RCR) | payer MEDICARE, OTHER ==
[2016-09-06 10:24] LABS: BASOPHILS # (AUTO) 0.1 10^3/uL (0.0-0.1); BASOPHILS % (AUTO) 1 % (0-10); EOSINOPHILS # (AUTO) 0.3 10^3/uL (0.0-0.3); EOSINOPHILS % (AUTO) 5 % (0-10); LYMPHOCYTES # (AUTO) 1.1 X 10^3 (1.0-4.0); LYMPHOCYTES % (AUTO) 15 % (12-44); MEAN CORPUSCULAR HEMOGLOBIN 32 PG (25-34); MEAN CORPUSCULAR HGB CONC 33 G/DL (32-36); MEAN CORPUSCULAR VOLUME 98 FL (80-99); MEAN PLATELET VOLUME 9.5 FL (7.4-10.4); MONOCYTES # (AUTO) 0.7 X 10^3 (0.0-1.0); MONOCYTES % (AUTO) 9 % (0-12); NEUTROPHILS # (AUTO) 5.2 X 10^3 (1.8-7.8); NEUTROPHILS % (AUTO) 70 % (42-75); PLATELET COUNT 214 10^3/uL (130-400); RED CELL DISTRIBUTION WIDTH 14.9 % (10.0-14.5); WHITE BLOOD COUNT 7.4 10^3/uL (4.3-11.0)
[2016-09-06 10:54] LABS: ALANINE AMINOTRANSFERASE 13 U/L (0-55); ALBUMIN 3.7 GM/DL (3.2-4.5); ANION GAP 10 MMOL/L (5-14); ASPARTATE AMINO TRANSFERASE 17 U/L (5-34); BILIRUBIN,TOTAL 0.4 MG/DL (0.1-1.0); BLOOD UREA NITROGEN 12 MG/DL (7-18); BUN/CREATININE RATIO 14; CALCIUM 8.9 MG/DL (8.5-10.1); CARBON DIOXIDE 26 MMOL/L (21-32); CHLORIDE 107 MMOL/L (98-107); CREATININE SERUM 0.85 MG/DL (0.60-1.30); GFR ESTIMATED > 60; GLUCOSE 125 MG/DL (70-105); HEMOLYSIS 19 (-100-29); ICTERUS 0.3 (-100-1.9); LIPEMIA 25 (-100-49); POTASSIUM 3.8 MMOL/L (3.6-5.0); SODIUM 143 MMOL/L (135-145)
[2016-09-06 11:15] LABS: THYROID STIMULATING HORMONE 5.33 UIU/ML (0.35-4.94)
[2016-09-20 13:01] LABS: BASOPHILS % (AUTO) 1 % (0-10); EOSINOPHILS # (AUTO) 0.4 10^3/uL (0.0-0.3); EOSINOPHILS % (AUTO) 6 % (0-10); LYMPHOCYTES # (AUTO) 1.2 X 10^3 (1.0-4.0); LYMPHOCYTES % (AUTO) 17 % (12-44); MEAN CORPUSCULAR HEMOGLOBIN 32 PG (25-34); MEAN CORPUSCULAR HGB CONC 33 G/DL (32-36); MEAN CORPUSCULAR VOLUME 99 FL (80-99); MEAN PLATELET VOLUME 9.5 FL (7.4-10.4); MONOCYTES # (AUTO) 0.6 X 10^3 (0.0-1.0); MONOCYTES % (AUTO) 9 % (0-12); NEUTROPHILS # (AUTO) 4.7 X 10^3 (1.8-7.8); NEUTROPHILS % (AUTO) 67 % (42-75); PLATELET COUNT 240 10^3/uL (130-400); RED BLOOD COUNT 4.86 10^6/uL (4.35-5.85); RED CELL DISTRIBUTION WIDTH 14.7 % (10.0-14.5); WHITE BLOOD COUNT 6.9 10^3/uL (4.3-11.0)
[2016-09-20 13:24] LABS: ALANINE AMINOTRANSFERASE 12 U/L (0-55); ALBUMIN 3.6 GM/DL (3.2-4.5); ANION GAP 8 MMOL/L (5-14); ASPARTATE AMINO TRANSFERASE 15 U/L (5-34); BILIRUBIN,TOTAL 0.4 MG/DL (0.1-1.0); BLOOD UREA NITROGEN 14 MG/DL (7-18); BUN/CREATININE RATIO 18; CALCIUM 8.7 MG/DL (8.5-10.1); CARBON DIOXIDE 26 MMOL/L (21-32); CHLORIDE 109 MMOL/L (98-107); CREATININE SERUM 0.76 MG/DL (0.60-1.30); GFR ESTIMATED > 60; GLUCOSE 107 MG/DL (70-105); POTASSIUM 4.1 MMOL/L (3.6-5.0); SODIUM 143 MMOL/L (135-145); TOTAL PROTEIN 6.6 GM/DL (6.4-8.2)
[2016-09-27 12:35] LABS: BASOPHILS % (AUTO) 1 % (0-10); EOSINOPHILS # (AUTO) 0.4 10^3/uL (0.0-0.3); EOSINOPHILS % (AUTO) 6 % (0-10); LYMPHOCYTES # (AUTO) 1.2 X 10^3 (1.0-4.0); LYMPHOCYTES % (AUTO) 16 % (12-44); MEAN CORPUSCULAR HEMOGLOBIN 32 PG (25-34); MEAN CORPUSCULAR HGB CONC 33 G/DL (32-36); MEAN CORPUSCULAR VOLUME 98 FL (80-99); MEAN PLATELET VOLUME 9.8 FL (7.4-10.4); MONOCYTES # (AUTO) 0.7 X 10^3 (0.0-1.0); MONOCYTES % (AUTO) 9 % (0-12); NEUTROPHILS % (AUTO) 69 % (42-75); PLATELET COUNT 213 10^3/uL (130-400); RED BLOOD COUNT 4.97 10^6/uL (4.35-5.85); RED CELL DISTRIBUTION WIDTH 14.4 % (10.0-14.5); WHITE BLOOD COUNT 7.3 10^3/uL (4.3-11.0)
[2016-09-27 13:01] LABS: ANION GAP 9 MMOL/L (5-14); BLOOD UREA NITROGEN 15 MG/DL (7-18); BUN/CREATININE RATIO 19; CARBON DIOXIDE 25 MMOL/L (21-32); CHLORIDE 106 MMOL/L (98-107); CREATININE SERUM 0.79 MG/DL (0.60-1.30); GFR ESTIMATED > 60; GLUCOSE 115 MG/DL (70-105); POTASSIUM 3.7 MMOL/L (3.6-5.0); SODIUM 140 MMOL/L (135-145)
[2016-10-10 13:29] LABS: BASOPHILS # (AUTO) 0.1 10^3/uL (0.0-0.1); BASOPHILS % (AUTO) 1 % (0-10); EOSINOPHILS # (AUTO) 0.6 10^3/uL (0.0-0.3); EOSINOPHILS % (AUTO) 8 % (0-10); LYMPHOCYTES # (AUTO) 1.1 X 10^3 (1.0-4.0); LYMPHOCYTES % (AUTO) 15 % (12-44); MEAN CORPUSCULAR HEMOGLOBIN 32 PG (25-34); MEAN CORPUSCULAR HGB CONC 33 G/DL (32-36); MEAN CORPUSCULAR VOLUME 97 FL (80-99); MEAN PLATELET VOLUME 9.6 FL (7.4-10.4); MONOCYTES # (AUTO) 0.6 X 10^3 (0.0-1.0); MONOCYTES % (AUTO) 9 % (0-12); NEUTROPHILS # (AUTO) 4.7 X 10^3 (1.8-7.8); NEUTROPHILS % (AUTO) 67 % (42-75); PLATELET COUNT 236 10^3/uL (130-400); RED BLOOD COUNT 4.85 10^6/uL (4.35-5.85); RED CELL DISTRIBUTION WIDTH 14.2 % (10.0-14.5)
[2016-10-10 13:59] LABS: ALANINE AMINOTRANSFERASE 14 U/L (0-55); ALBUMIN 3.8 GM/DL (3.2-4.5); ANION GAP 11 MMOL/L (5-14); ASPARTATE AMINO TRANSFERASE 15 U/L (5-34); BILIRUBIN,TOTAL 0.4 MG/DL (0.1-1.0); BLOOD UREA NITROGEN 15 MG/DL (7-18); BUN/CREATININE RATIO 19; CALCIUM 9.1 MG/DL (8.5-10.1); CARBON DIOXIDE 23 MMOL/L (21-32); CHLORIDE 109 MMOL/L (98-107); CREATININE SERUM 0.79 MG/DL (0.60-1.30); GFR ESTIMATED > 60; GLUCOSE 104 MG/DL (70-105); POTASSIUM 3.8 MMOL/L (3.6-5.0); SODIUM 143 MMOL/L (135-145); TOTAL PROTEIN 6.9 GM/DL (6.4-8.2)
--- NOTE | 2016-10-10 14:47 | Diagnostic Imaging Report ---
PA and lateral views of the chest. COMPARISON: 08/09/2016. INDICATION: Squamous cell lung cancer. FINDINGS: There is a right infrahilar mass measuring 5.1 cm with adjacent scarring. In the left lung base there is also another mass which appears larger compared to previous exam measuring 4.6 compared to 3.8 cm in size. Background emphysema. The heart size is normal. No effusion or pneumothorax Mediastinum and rita appear unremarkable. There is an infusion port seen with the tip at the SVC level. IMPRESSION: Stable right infrahilar mass. Enlarged left basilar mass. Dictated by: Dictated on workstation # [id number]
[2016-10-10 15:15] LABS: THYROID STIMULATING HORMONE 9.32 UIU/ML (0.35-4.94)
[2016-10-24 14:31] LABS: BASOPHILS % (AUTO) 1 % (0-10); EOSINOPHILS # (AUTO) 0.5 10^3/uL (0.0-0.3); EOSINOPHILS % (AUTO) 6 % (0-10); LYMPHOCYTES # (AUTO) 1.3 X 10^3 (1.0-4.0); LYMPHOCYTES % (AUTO) 19 % (12-44); MEAN CORPUSCULAR HEMOGLOBIN 32 PG (25-34); MEAN CORPUSCULAR HGB CONC 34 G/DL (32-36); MEAN CORPUSCULAR VOLUME 96 FL (80-99); MEAN PLATELET VOLUME 9.7 FL (7.4-10.4); MONOCYTES # (AUTO) 0.7 X 10^3 (0.0-1.0); MONOCYTES % (AUTO) 10 % (0-12); NEUTROPHILS # (AUTO) 4.5 X 10^3 (1.8-7.8); NEUTROPHILS % (AUTO) 64 % (42-75); PLATELET COUNT 216 10^3/uL (130-400); RED BLOOD COUNT 4.89 10^6/uL (4.35-5.85); RED CELL DISTRIBUTION WIDTH 13.9 % (10.0-14.5)
[2016-10-24 14:56] LABS: ALANINE AMINOTRANSFERASE 13 U/L (0-55); ANION GAP 9 MMOL/L (5-14); ASPARTATE AMINO TRANSFERASE 17 U/L (5-34); BILIRUBIN,TOTAL 0.7 MG/DL (0.1-1.0); BLOOD UREA NITROGEN 14 MG/DL (7-18); BUN/CREATININE RATIO 17; CALCIUM 9.2 MG/DL (8.5-10.1); CARBON DIOXIDE 26 MMOL/L (21-32); CHLORIDE 107 MMOL/L (98-107); CREATININE SERUM 0.82 MG/DL (0.60-1.30); GFR ESTIMATED > 60; GLUCOSE 93 MG/DL (70-105); SODIUM 142 MMOL/L (135-145); TOTAL PROTEIN 7.3 GM/DL (6.4-8.2)
[2016-11-14 13:25] LABS: BASOPHILS % (AUTO) 0 % (0-10); EOSINOPHILS # (AUTO) 0.3 10^3/uL (0.0-0.3); EOSINOPHILS % (AUTO) 5 % (0-10); LYMPHOCYTES % (AUTO) 20 % (12-44); MEAN CORPUSCULAR HEMOGLOBIN 32 PG (25-34); MEAN CORPUSCULAR HGB CONC 33 G/DL (32-36); MEAN CORPUSCULAR VOLUME 97 FL (80-99); MEAN PLATELET VOLUME 9.7 FL (7.4-10.4); MONOCYTES # (AUTO) 0.3 X 10^3 (0.0-1.0); MONOCYTES % (AUTO) 7 % (0-12); NEUTROPHILS # (AUTO) 3.3 X 10^3 (1.8-7.8); NEUTROPHILS % (AUTO) 67 % (42-75); PLATELET COUNT 118 10^3/uL (130-400); RED BLOOD COUNT 4.44 10^6/uL (4.35-5.85); RED CELL DISTRIBUTION WIDTH 13.2 % (10.0-14.5); WHITE BLOOD COUNT 4.9 10^3/uL (4.3-11.0)
[2016-11-14 13:44] LABS: ANION GAP 10 MMOL/L (5-14); BLOOD UREA NITROGEN 13 MG/DL (7-18); BUN/CREATININE RATIO 16; CARBON DIOXIDE 24 MMOL/L (21-32); CHLORIDE 108 MMOL/L (98-107); CREATININE SERUM 0.79 MG/DL (0.60-1.30); GFR ESTIMATED > 60; GLUCOSE 90 MG/DL (70-105); POTASSIUM 4.4 MMOL/L (3.6-5.0); SODIUM 142 MMOL/L (135-145)
[~2016-11-20] VITALS: Ht 182.9 cm; Wt 76.7 kg
[~2016-11-20 12:56] MED LIST changes: +GEMCITABINE HCL (GENERIC) 1,000 MG, GEMCITABINE HCL (GENERIC) 600 MG in NS (IVPB) CANCE... IV SCH; +NIVOLUMAB 200 MG, NIVOLUMAB 40 MG in NS (IVPB) CANCER CENTER 50 ML IV SCH; +NS IV 500 ML (CANCER CENTER) 500 ML IV SCH; +ONDANSETRON 16 MG, DEXAMETHASONE 10 MG/NS 50 ML IVPB IV SCH
[2016-11-20 13:22] LABS: BASOPHILS % (AUTO) 0 % (0-10); EOSINOPHILS # (AUTO) 0.1 10^3/uL (0.0-0.3); EOSINOPHILS % (AUTO) 1 % (0-10); LYMPHOCYTES # (AUTO) 0.7 X 10^3 (1.0-4.0); LYMPHOCYTES % (AUTO) 15 % (12-44); MEAN CORPUSCULAR HEMOGLOBIN 32 PG (25-34); MEAN CORPUSCULAR HGB CONC 34 G/DL (32-36); MEAN CORPUSCULAR VOLUME 95 FL (80-99); MEAN PLATELET VOLUME 9.1 FL (7.4-10.4); MONOCYTES # (AUTO) 0.1 X 10^3 (0.0-1.0); MONOCYTES % (AUTO) 1 % (0-12); NEUTROPHILS # (AUTO) 3.8 X 10^3 (1.8-7.8); NEUTROPHILS % (AUTO) 82 % (42-75); PLATELET COUNT 136 10^3/uL (130-400); RED CELL DISTRIBUTION WIDTH 13.3 % (10.0-14.5); WHITE BLOOD COUNT 4.6 10^3/uL (4.3-11.0)
[2016-11-20 13:40] LABS: ANION GAP 7 MMOL/L (5-14); BLOOD UREA NITROGEN 19 MG/DL (7-18); BUN/CREATININE RATIO 24; CALCIUM 9.1 MG/DL (8.5-10.1); CARBON DIOXIDE 28 MMOL/L (21-32); CHLORIDE 105 MMOL/L (98-107); CREATININE SERUM 0.78 MG/DL (0.60-1.30); GFR ESTIMATED > 60; GLUCOSE 94 MG/DL (70-105); POTASSIUM 4.3 MMOL/L (3.6-5.0); SODIUM 140 MMOL/L (135-145)
== END 2016-11-23 | disposition home or self-care (01) ==
LOC: ONC 12:56
PROVIDERS: ATTEND Internal Medicine Hematology & Oncology
DX: Z51.11 Encounter for antineoplastic chemotherapy (principal); C34.2 Malignant neoplasm of middle lobe, bronchus or lung; C77.1 Secondary and unspecified malignant neoplasm of intrathoracic lymph nodes; I10 Essential (primary) hypertension; J44.9 Chronic obstructive pulmonary disease, unspecified; E03.9 Hypothyroidism, unspecified; I48.91 Unspecified atrial fibrillation; F17.220 Nicotine dependence, chewing tobacco, uncomplicated; Z79.899 Other long term (current) drug therapy; Z79.01 Long term (current) use of anticoagulants
CPT/HCPCS: 36591; 71020; 80048; 80053; 84443; 85025; 93005; 96360; 96361; 96375; 96413; 99213

== ENCOUNTER 2016-12-04 12:41 | Outpatient (RCR) | payer MEDICARE, OTHER ==
[2016-11-27 14:32] LABS: BASOPHILS % (AUTO) 0 % (0-10); EOSINOPHILS % (AUTO) 0 % (0-10); LYMPHOCYTES # (AUTO) 0.9 X 10^3 (1.0-4.0); LYMPHOCYTES % (AUTO) 25 % (12-44); MEAN CORPUSCULAR HEMOGLOBIN 32 PG (25-34); MEAN CORPUSCULAR HGB CONC 34 G/DL (32-36); MEAN CORPUSCULAR VOLUME 96 FL (80-99); MEAN PLATELET VOLUME 8.6 FL (7.4-10.4); MONOCYTES # (AUTO) 0.2 X 10^3 (0.0-1.0); MONOCYTES % (AUTO) 4 % (0-12); NEUTROPHILS # (AUTO) 2.5 X 10^3 (1.8-7.8); NEUTROPHILS % (AUTO) 70 % (42-75); PLATELET COUNT 100 10^3/uL (130-400); RED BLOOD COUNT 4.09 10^6/uL (4.35-5.85); RED CELL DISTRIBUTION WIDTH 13.4 % (10.0-14.5); WHITE BLOOD COUNT 3.6 10^3/uL (4.3-11.0)
[2016-11-27 15:09] LABS: ANION GAP 8 MMOL/L (5-14); BLOOD UREA NITROGEN 15 MG/DL (7-18); BUN/CREATININE RATIO 19; CALCIUM 9.2 MG/DL (8.5-10.1); CARBON DIOXIDE 29 MMOL/L (21-32); CHLORIDE 104 MMOL/L (98-107); GFR ESTIMATED > 60; GLUCOSE 92 MG/DL (70-105); POTASSIUM 4.4 MMOL/L (3.6-5.0); SODIUM 141 MMOL/L (135-145)
[~2016-12-04 12:41] MED LIST changes: -GADOBUTROL 7.5 MMOL/7.5 ML (GADAVIST) VIAL IV ONE; +GEMCITABINE HCL (GENERIC) 1,000 MG, GEMCITABINE HCL (GENERIC) 600 MG in NS (IVPB) CANCE... IV SCH; +NS IV 500 ML (CANCER CENTER) 500 ML IV SCH; +ONDANSETRON 16 MG, DEXAMETHASONE 10 MG/NS 50 ML IVPB IV SCH
[2016-12-04 13:15] LABS: BASOPHILS % (AUTO) 0 % (0-10); EOSINOPHILS # (AUTO) 0.1 10^3/uL (0.0-0.3); EOSINOPHILS % (AUTO) 2 % (0-10); LYMPHOCYTES # (AUTO) 0.9 X 10^3 (1.0-4.0); LYMPHOCYTES % (AUTO) 20 % (12-44); MEAN CORPUSCULAR HEMOGLOBIN 32 PG (25-34); MEAN CORPUSCULAR HGB CONC 33 G/DL (32-36); MEAN CORPUSCULAR VOLUME 98 FL (80-99); MEAN PLATELET VOLUME 9.3 FL (7.4-10.4); MONOCYTES # (AUTO) 0.7 X 10^3 (0.0-1.0); MONOCYTES % (AUTO) 15 % (0-12); NEUTROPHILS % (AUTO) 63 % (42-75); PLATELET COUNT 598 10^3/uL (130-400); RED BLOOD COUNT 3.93 10^6/uL (4.35-5.85); RED CELL DISTRIBUTION WIDTH 14.5 % (10.0-14.5); WHITE BLOOD COUNT 4.8 10^3/uL (4.3-11.0)
[2016-12-04 13:34] LABS: ALANINE AMINOTRANSFERASE 11 U/L (0-55); ALBUMIN 3.8 GM/DL (3.2-4.5); ANION GAP 8 MMOL/L (5-14); ASPARTATE AMINO TRANSFERASE 14 U/L (5-34); BILIRUBIN,TOTAL 0.3 MG/DL (0.1-1.0); BLOOD UREA NITROGEN 18 MG/DL (7-18); BUN/CREATININE RATIO 24; CALCIUM 9.1 MG/DL (8.5-10.1); CARBON DIOXIDE 26 MMOL/L (21-32); CHLORIDE 107 MMOL/L (98-107); CREATININE SERUM 0.76 MG/DL (0.60-1.30); GFR ESTIMATED > 60; GLUCOSE 95 MG/DL (70-105); POTASSIUM 4.1 MMOL/L (3.6-5.0); SODIUM 141 MMOL/L (135-145); TOTAL PROTEIN 7.1 GM/DL (6.4-8.2)
[2016-12-04 13:54] LABS: THYROID STIMULATING HORMONE 18.07 UIU/ML (0.35-4.94)
== END 2016-12-09 | disposition home or self-care (01) ==
LOC: ONC 12:41
PROVIDERS: ATTEND Internal Medicine Hematology & Oncology
DX: F17.220 Nicotine dependence, chewing tobacco, uncomplicated; I48.91 Unspecified atrial fibrillation; Z79.899 Other long term (current) drug therapy; C77.1 Secondary and unspecified malignant neoplasm of intrathoracic lymph nodes; Z79.01 Long term (current) use of anticoagulants; J44.9 Chronic obstructive pulmonary disease, unspecified; C34.2 Malignant neoplasm of middle lobe, bronchus or lung; E03.9 Hypothyroidism, unspecified; I10 Essential (primary) hypertension
CPT/HCPCS: 36415; 80048; 80053; 84443; 85025

== ENCOUNTER → 2016-12-04 | Outpatient (CLI) | payer MEDICARE, OTHER ==
[~2016-12-04] MED LIST changes: +GADOBUTROL 7.5 MMOL/7.5 ML (GADAVIST) VIAL IV ONE; -GEMCITABINE HCL (GENERIC) 1,000 MG, GEMCITABINE HCL (GENERIC) 600 MG in NS (IVPB) CANCE... IV SCH; -NIVOLUMAB 200 MG, NIVOLUMAB 40 MG in NS (IVPB) CANCER CENTER 50 ML IV SCH; -NS IV 500 ML (CANCER CENTER) 500 ML IV SCH; -ONDANSETRON 16 MG, DEXAMETHASONE 10 MG/NS 50 ML IVPB IV SCH
--- NOTE | 2016-12-04 18:04 | Diagnostic Imaging Report ---
PROCEDURE: MR imaging of the brain with and without contrast. TECHNIQUE: Multiplanar, multisequence MR imaging of the brain was performed with and without contrast. INDICATION: Vision changes. History of lung cancer. COMPARISON: 08/23/2016 FINDINGS: Evaluation of the postcontrast sequences demonstrates single suspicious area of micronodular enhancement involving the posterior left temporal lobe. Area in question measures approximately 2-3 mm in diameter (image 10, series 8 and image 5, series 10). Corresponding area of abnormal enhancement cannot be identified on prior exam suggesting that this is a new finding. There is no significant surrounding mass effect. There are scattered and confluent areas of abnormal T2/FLAIR bright signal within the periventricular and subcortical deep white matter consistent with chronic small vessel ischemic changes. There is no evidence of acute infarct on today's exam. Ventricles and cortical sulci are diffusely prominent consistent with age-related parenchymal volume loss. Otherwise, there is no other mass effect or midline shift. There is no evidence of intra-axial or extra-axial intracranial hemorrhage. No focal calvarial lesions are seen. Paranasal sinuses and mastoid air cells are unremarkable. IMPRESSION: 1. Single punctate focus of intraparenchymal enhancement within the posterior left temporal lobe. Given the history of lung cancer and absence of similar findings on prior exam, this is concerning for potential new metastatic disease. Short interval followup is recommended. 2. No significant mass effect related to the above. 3. No evidence of acute infarct or intracranial hemorrhage. Dictated by: Dictated on workstation # [id number]
== END ==
LOC: RAD 14:35
PROVIDERS: ATTEND Nurse Practitioner Adult Health
DX: R93.0 Abnormal findings on diagnostic imaging of skull and head, not elsewhere classified (principal); Z85.118 Personal history of other malignant neoplasm of bronchus and lung; H53.9 Unspecified visual disturbance; R29.6 Repeated falls; R42 Dizziness and giddiness
CPT/HCPCS: 36591; 70553

== ENCOUNTER 2017-01-01 14:07 | Outpatient (RCR) | payer MEDICARE, OTHER ==
[2016-12-11 13:46] LABS: BASOPHILS % (AUTO) 1 % (0-10); EOSINOPHILS # (AUTO) 0.1 10^3/uL (0.0-0.3); EOSINOPHILS % (AUTO) 3 % (0-10); LYMPHOCYTES % (AUTO) 18 % (12-44); MEAN CORPUSCULAR HEMOGLOBIN 32 PG (25-34); MEAN CORPUSCULAR HGB CONC 33 G/DL (32-36); MEAN CORPUSCULAR VOLUME 98 FL (80-99); MEAN PLATELET VOLUME 9.3 FL (7.4-10.4); MONOCYTES # (AUTO) 1.1 X 10^3 (0.0-1.0); MONOCYTES % (AUTO) 21 % (0-12); NEUTROPHILS # (AUTO) 3.1 X 10^3 (1.8-7.8); NEUTROPHILS % (AUTO) 58 % (42-75); PLATELET COUNT 510 10^3/uL (130-400); RED BLOOD COUNT 4.13 10^6/uL (4.35-5.85); RED CELL DISTRIBUTION WIDTH 15.4 % (10.0-14.5); WHITE BLOOD COUNT 5.3 10^3/uL (4.3-11.0)
[2016-12-11 14:02] LABS: ALANINE AMINOTRANSFERASE 10 U/L (0-55); ALBUMIN 3.8 GM/DL (3.2-4.5); ANION GAP 9 MMOL/L (5-14); ASPARTATE AMINO TRANSFERASE 12 U/L (5-34); BILIRUBIN,TOTAL 0.2 MG/DL (0.1-1.0); BLOOD UREA NITROGEN 16 MG/DL (7-18); BUN/CREATININE RATIO 21; CARBON DIOXIDE 26 MMOL/L (21-32); CHLORIDE 108 MMOL/L (98-107); CREATININE SERUM 0.77 MG/DL (0.60-1.30); GFR ESTIMATED > 60; GLUCOSE 100 MG/DL (70-105); POTASSIUM 3.9 MMOL/L (3.6-5.0); SODIUM 143 MMOL/L (135-145); TOTAL PROTEIN 6.9 GM/DL (6.4-8.2)
[2016-12-18 13:08] LABS: BASOPHILS # (AUTO) 0.1 10^3/uL (0.0-0.1); BASOPHILS % (AUTO) 2 % (0-10); EOSINOPHILS % (AUTO) 1 % (0-10); LYMPHOCYTES # (AUTO) 0.9 X 10^3 (1.0-4.0); LYMPHOCYTES % (AUTO) 24 % (12-44); MEAN CORPUSCULAR HEMOGLOBIN 32 PG (25-34); MEAN CORPUSCULAR HGB CONC 33 G/DL (32-36); MEAN CORPUSCULAR VOLUME 97 FL (80-99); MEAN PLATELET VOLUME 9.6 FL (7.4-10.4); MONOCYTES # (AUTO) 0.6 X 10^3 (0.0-1.0); MONOCYTES % (AUTO) 16 % (0-12); NEUTROPHILS # (AUTO) 2.2 X 10^3 (1.8-7.8); NEUTROPHILS % (AUTO) 58 % (42-75); RED BLOOD COUNT 4.14 10^6/uL (4.35-5.85); RED CELL DISTRIBUTION WIDTH 14.6 % (10.0-14.5); WHITE BLOOD COUNT 3.8 10^3/uL (4.3-11.0)
[2016-12-18 13:12] LABS: PLATELET COUNT 190 10^3/uL (130-400)
[2016-12-18 13:27] LABS: ANION GAP 8 MMOL/L (5-14); BLOOD UREA NITROGEN 19 MG/DL (7-18); BUN/CREATININE RATIO 23; CALCIUM 9.3 MG/DL (8.5-10.1); CARBON DIOXIDE 26 MMOL/L (21-32); CHLORIDE 105 MMOL/L (98-107); CREATININE SERUM 0.81 MG/DL (0.60-1.30); GFR ESTIMATED > 60; GLUCOSE 102 MG/DL (70-105); SODIUM 139 MMOL/L (135-145)
[2016-12-25 13:12] LABS: BASOPHILS # (AUTO) 0.1 10^3/uL (0.0-0.1); BASOPHILS % (AUTO) 1 % (0-10); EOSINOPHILS % (AUTO) 1 % (0-10); LYMPHOCYTES # (AUTO) 0.8 X 10^3 (1.0-4.0); LYMPHOCYTES % (AUTO) 18 % (12-44); MEAN CORPUSCULAR HEMOGLOBIN 33 PG (25-34); MEAN CORPUSCULAR HGB CONC 33 G/DL (32-36); MEAN CORPUSCULAR VOLUME 99 FL (80-99); MEAN PLATELET VOLUME 9.7 FL (7.4-10.4); MONOCYTES # (AUTO) 0.2 X 10^3 (0.0-1.0); MONOCYTES % (AUTO) 4 % (0-12); NEUTROPHILS # (AUTO) 3.3 X 10^3 (1.8-7.8); NEUTROPHILS % (AUTO) 76 % (42-75); PLATELET COUNT 90 10^3/uL (130-400); RED BLOOD COUNT 3.92 10^6/uL (4.35-5.85); RED CELL DISTRIBUTION WIDTH 14.9 % (10.0-14.5); WHITE BLOOD COUNT 4.3 10^3/uL (4.3-11.0)
[2016-12-25 13:23] LABS: ANION GAP 9 MMOL/L (5-14); BLOOD UREA NITROGEN 19 MG/DL (7-18); BUN/CREATININE RATIO 26; CALCIUM 9.3 MG/DL (8.5-10.1); CARBON DIOXIDE 26 MMOL/L (21-32); CHLORIDE 105 MMOL/L (98-107); CREATININE SERUM 0.74 MG/DL (0.60-1.30); GFR ESTIMATED > 60; GLUCOSE 107 MG/DL (70-105); POTASSIUM 3.9 MMOL/L (3.6-5.0); SODIUM 140 MMOL/L (135-145)
[~2017-01-01 14:07] MED LIST changes: +GEMCITABINE HCL (GENERIC) 1,000 MG, GEMCITABINE HCL (GENERIC) 500 MG in NS (IVPB) CANCE... IV SCH
[2017-01-01 14:27] LABS: BASOPHILS % (AUTO) 1 % (0-10); EOSINOPHILS % (AUTO) 1 % (0-10); LYMPHOCYTES # (AUTO) 0.7 X 10^3 (1.0-4.0); LYMPHOCYTES % (AUTO) 27 % (12-44); MEAN CORPUSCULAR HEMOGLOBIN 33 PG (25-34); MEAN CORPUSCULAR HGB CONC 33 G/DL (32-36); MEAN CORPUSCULAR VOLUME 99 FL (80-99); MEAN PLATELET VOLUME 9.4 FL (7.4-10.4); MONOCYTES # (AUTO) 0.2 X 10^3 (0.0-1.0); MONOCYTES % (AUTO) 10 % (0-12); NEUTROPHILS # (AUTO) 1.6 X 10^3 (1.8-7.8); NEUTROPHILS % (AUTO) 62 % (42-75); PLATELET COUNT 152 10^3/uL (130-400); RED BLOOD COUNT 3.52 10^6/uL (4.35-5.85); RED CELL DISTRIBUTION WIDTH 15.9 % (10.0-14.5); WHITE BLOOD COUNT 2.5 10^3/uL (4.3-11.0)
[2017-01-01 14:44] LABS: ANION GAP 7 MMOL/L (5-14); BLOOD UREA NITROGEN 15 MG/DL (7-18); BUN/CREATININE RATIO 20; CARBON DIOXIDE 28 MMOL/L (21-32); CHLORIDE 105 MMOL/L (98-107); CREATININE SERUM 0.76 MG/DL (0.60-1.30); GFR ESTIMATED > 60; GLUCOSE 85 MG/DL (70-105); POTASSIUM 4.2 MMOL/L (3.6-5.0); SODIUM 140 MMOL/L (135-145)
[2017-01-10 13:23] LABS: BASOPHILS % (AUTO) 0 % (0-10); EOSINOPHILS # (AUTO) 0.2 10^3/uL (0.0-0.3); EOSINOPHILS % (AUTO) 2 % (0-10); LYMPHOCYTES # (AUTO) 1.1 X 10^3 (1.0-4.0); LYMPHOCYTES % (AUTO) 15 % (12-44); MEAN CORPUSCULAR HEMOGLOBIN 33 PG (25-34); MEAN CORPUSCULAR HGB CONC 33 G/DL (32-36); MEAN CORPUSCULAR VOLUME 100 FL (80-99); MEAN PLATELET VOLUME 9.3 FL (7.4-10.4); MONOCYTES # (AUTO) 1.2 X 10^3 (0.0-1.0); MONOCYTES % (AUTO) 16 % (0-12); NEUTROPHILS % (AUTO) 67 % (42-75); PLATELET COUNT 618 10^3/uL (130-400); WHITE BLOOD COUNT 7.4 10^3/uL (4.3-11.0)
[2017-01-10 13:35] LABS: ALANINE AMINOTRANSFERASE 10 U/L (0-55); ALBUMIN 3.9 GM/DL (3.2-4.5); ANION GAP 10 MMOL/L (5-14); ASPARTATE AMINO TRANSFERASE 16 U/L (5-34); BILIRUBIN,TOTAL 0.4 MG/DL (0.1-1.0); BLOOD UREA NITROGEN 18 MG/DL (7-18); BUN/CREATININE RATIO 23; CALCIUM 9.2 MG/DL (8.5-10.1); CARBON DIOXIDE 26 MMOL/L (21-32); CHLORIDE 105 MMOL/L (98-107); CREATININE SERUM 0.78 MG/DL (0.60-1.30); GFR ESTIMATED > 60; GLUCOSE 88 MG/DL (70-105); POTASSIUM 3.9 MMOL/L (3.6-5.0); SODIUM 141 MMOL/L (135-145); TOTAL PROTEIN 6.8 GM/DL (6.4-8.2)
== END 2017-01-09 12:26 | disposition home or self-care (01) ==
LOC: ONC 14:07
PROVIDERS: ATTEND Internal Medicine Hematology & Oncology
DX: Z51.11 Encounter for antineoplastic chemotherapy (principal); C34.2 Malignant neoplasm of middle lobe, bronchus or lung; C77.1 Secondary and unspecified malignant neoplasm of intrathoracic lymph nodes; I10 Essential (primary) hypertension; J44.9 Chronic obstructive pulmonary disease, unspecified; E03.9 Hypothyroidism, unspecified; I48.91 Unspecified atrial fibrillation; F17.220 Nicotine dependence, chewing tobacco, uncomplicated; Z79.899 Other long term (current) drug therapy; Z79.01 Long term (current) use of anticoagulants
CPT/HCPCS: 36415; 36591; 80048; 80053; 85025; 96375; 96413

== ENCOUNTER 2017-01-29 14:51 | Outpatient (RCR) | payer MEDICARE, OTHER ==
[2017-01-10 13:23] LABS: BASOPHILS % (AUTO) 0 % (0-10); EOSINOPHILS # (AUTO) 0.2 10^3/uL (0.0-0.3); EOSINOPHILS % (AUTO) 2 % (0-10); LYMPHOCYTES # (AUTO) 1.1 X 10^3 (1.0-4.0); LYMPHOCYTES % (AUTO) 15 % (12-44); MEAN CORPUSCULAR HEMOGLOBIN 33 PG (25-34); MEAN CORPUSCULAR HGB CONC 33 G/DL (32-36); MEAN CORPUSCULAR VOLUME 100 FL (80-99); MEAN PLATELET VOLUME 9.3 FL (7.4-10.4); MONOCYTES # (AUTO) 1.2 X 10^3 (0.0-1.0); MONOCYTES % (AUTO) 16 % (0-12); NEUTROPHILS % (AUTO) 67 % (42-75); PLATELET COUNT 618 10^3/uL (130-400); WHITE BLOOD COUNT 7.4 10^3/uL (4.3-11.0)
[2017-01-10 13:35] LABS: ALANINE AMINOTRANSFERASE 10 U/L (0-55); ALBUMIN 3.9 GM/DL (3.2-4.5); ANION GAP 10 MMOL/L (5-14); ASPARTATE AMINO TRANSFERASE 16 U/L (5-34); BILIRUBIN,TOTAL 0.4 MG/DL (0.1-1.0); BLOOD UREA NITROGEN 18 MG/DL (7-18); BUN/CREATININE RATIO 23; CALCIUM 9.2 MG/DL (8.5-10.1); CARBON DIOXIDE 26 MMOL/L (21-32); CHLORIDE 105 MMOL/L (98-107); CREATININE SERUM 0.78 MG/DL (0.60-1.30); GFR ESTIMATED > 60; GLUCOSE 88 MG/DL (70-105); POTASSIUM 3.9 MMOL/L (3.6-5.0); SODIUM 141 MMOL/L (135-145); TOTAL PROTEIN 6.8 GM/DL (6.4-8.2)
[2017-01-16 13:22] LABS: BASOPHILS % (AUTO) 1 % (0-10); EOSINOPHILS # (AUTO) 0.1 10^3/uL (0.0-0.3); EOSINOPHILS % (AUTO) 1 % (0-10); LYMPHOCYTES # (AUTO) 0.7 X 10^3 (1.0-4.0); LYMPHOCYTES % (AUTO) 14 % (12-44); MEAN CORPUSCULAR HEMOGLOBIN 33 PG (25-34); MEAN CORPUSCULAR HGB CONC 33 G/DL (32-36); MEAN CORPUSCULAR VOLUME 100 FL (80-99); MEAN PLATELET VOLUME 9.5 FL (7.4-10.4); MONOCYTES # (AUTO) 0.3 X 10^3 (0.0-1.0); MONOCYTES % (AUTO) 6 % (0-12); NEUTROPHILS # (AUTO) 4.1 X 10^3 (1.8-7.8); NEUTROPHILS % (AUTO) 79 % (42-75); PLATELET COUNT 307 10^3/uL (130-400); RED BLOOD COUNT 3.42 10^6/uL (4.35-5.85); WHITE BLOOD COUNT 5.2 10^3/uL (4.3-11.0)
[2017-01-16 13:37] LABS: ANION GAP 12 MMOL/L (5-14); BLOOD UREA NITROGEN 20 MG/DL (7-18); BUN/CREATININE RATIO 27; CARBON DIOXIDE 23 MMOL/L (21-32); CHLORIDE 107 MMOL/L (98-107); CREATININE SERUM 0.73 MG/DL (0.60-1.30); GFR ESTIMATED > 60; GLUCOSE 94 MG/DL (70-105); SODIUM 142 MMOL/L (135-145)
[2017-01-23 13:13] LABS: BASOPHILS % (AUTO) 1 % (0-10); EOSINOPHILS % (AUTO) 1 % (0-10); LYMPHOCYTES # (AUTO) 0.6 X 10^3 (1.0-4.0); LYMPHOCYTES % (AUTO) 17 % (12-44); MEAN CORPUSCULAR HEMOGLOBIN 34 PG (25-34); MEAN CORPUSCULAR HGB CONC 33 G/DL (32-36); MEAN CORPUSCULAR VOLUME 101 FL (80-99); MEAN PLATELET VOLUME 9.1 FL (7.4-10.4); MONOCYTES # (AUTO) 0.6 X 10^3 (0.0-1.0); MONOCYTES % (AUTO) 16 % (0-12); NEUTROPHILS # (AUTO) 2.3 X 10^3 (1.8-7.8); NEUTROPHILS % (AUTO) 65 % (42-75); PLATELET COUNT 108 10^3/uL (130-400); RED BLOOD COUNT 3.43 10^6/uL (4.35-5.85); RED CELL DISTRIBUTION WIDTH 16.3 % (10.0-14.5); WHITE BLOOD COUNT 3.5 10^3/uL (4.3-11.0)
[2017-01-23 13:24] LABS: ANION GAP 8 MMOL/L (5-14); BLOOD UREA NITROGEN 19 MG/DL (7-18); BUN/CREATININE RATIO 25; CALCIUM 9.1 MG/DL (8.5-10.1); CARBON DIOXIDE 26 MMOL/L (21-32); CHLORIDE 107 MMOL/L (98-107); CREATININE SERUM 0.76 MG/DL (0.60-1.30); GFR ESTIMATED > 60; GLUCOSE 106 MG/DL (70-105); SODIUM 141 MMOL/L (135-145)
[~2017-01-29] VITALS: Ht 182.9 cm; Wt 76.7 kg
[~2017-01-29 14:51] MED LIST changes: +ALTEPLASE 2 MG (CATHFLO) CANCER CENTER IV ONE; -GEMCITABINE HCL (GENERIC) 1,000 MG, GEMCITABINE HCL (GENERIC) 600 MG in NS (IVPB) CANCE... IV SCH
[2017-01-29 15:24] LABS: BASOPHILS % (AUTO) 0 % (0-10); EOSINOPHILS # (AUTO) 0.1 10^3/uL (0.0-0.3); EOSINOPHILS % (AUTO) 1 % (0-10); LYMPHOCYTES # (AUTO) 0.6 X 10^3 (1.0-4.0); LYMPHOCYTES % (AUTO) 8 % (12-44); MEAN CORPUSCULAR HEMOGLOBIN 34 PG (25-34); MEAN CORPUSCULAR HGB CONC 34 G/DL (32-36); MEAN CORPUSCULAR VOLUME 101 FL (80-99); MEAN PLATELET VOLUME 9.5 FL (7.4-10.4); MONOCYTES # (AUTO) 0.3 X 10^3 (0.0-1.0); MONOCYTES % (AUTO) 4 % (0-12); NEUTROPHILS # (AUTO) 5.9 X 10^3 (1.8-7.8); NEUTROPHILS % (AUTO) 87 % (42-75); PLATELET COUNT 153 10^3/uL (130-400); RED BLOOD COUNT 3.23 10^6/uL (4.35-5.85); RED CELL DISTRIBUTION WIDTH 16.1 % (10.0-14.5); WHITE BLOOD COUNT 6.8 10^3/uL (4.3-11.0)
[2017-01-29 15:39] LABS: ANION GAP 10 MMOL/L (5-14); BLOOD UREA NITROGEN 18 MG/DL (7-18); BUN/CREATININE RATIO 23; CALCIUM 9.2 MG/DL (8.5-10.1); CARBON DIOXIDE 26 MMOL/L (21-32); CHLORIDE 104 MMOL/L (98-107); CREATININE SERUM 0.79 MG/DL (0.60-1.30); GFR ESTIMATED > 60; GLUCOSE 90 MG/DL (70-105); POTASSIUM 3.8 MMOL/L (3.6-5.0); SODIUM 140 MMOL/L (135-145)
== END 2017-01-31 14:48 | disposition home or self-care (01) ==
LOC: ONC 14:51
PROVIDERS: ATTEND Internal Medicine Hematology & Oncology
DX: Z51.11 Encounter for antineoplastic chemotherapy (principal); C34.2 Malignant neoplasm of middle lobe, bronchus or lung; C77.1 Secondary and unspecified malignant neoplasm of intrathoracic lymph nodes; I10 Essential (primary) hypertension; J44.9 Chronic obstructive pulmonary disease, unspecified; E03.9 Hypothyroidism, unspecified; I48.91 Unspecified atrial fibrillation; F17.220 Nicotine dependence, chewing tobacco, uncomplicated; Z79.899 Other long term (current) drug therapy; Z79.01 Long term (current) use of anticoagulants
CPT/HCPCS: 36415; 36591; 36593; 80048; 80053; 85025; 96375; 96413

== ENCOUNTER → 2017-02-08 | Outpatient (CLI) | payer MEDICARE, OTHER ==
[~2017-02-08] MED LIST changes: -ALTEPLASE 2 MG (CATHFLO) CANCER CENTER IV ONE; +BARIUM SUSPENSION 2.1% (VANILLA SILQ) 450 ML PO ONE; +CATHETER FLUSH 10 ML SYR IV PRN; +GADOBUTROL 7.5 MMOL/7.5 ML (GADAVIST) VIAL IV ONE; -GEMCITABINE HCL (GENERIC) 1,000 MG, GEMCITABINE HCL (GENERIC) 500 MG in NS (IVPB) CANCE... IV SCH; +IOHEXOL 350 MG/ML 100 ML (OMNIPAQUE 350) VIAL IV ONE; +NS 100 ML (IVPB) BAG IV ONE; -NS IV 500 ML (CANCER CENTER) 500 ML IV SCH; -ONDANSETRON 16 MG, DEXAMETHASONE 10 MG/NS 50 ML IVPB IV SCH
--- NOTE | 2017-02-08 20:09 | Diagnostic Imaging Report ---
PROCEDURE: MR imaging of the brain with and without contrast. TECHNIQUE: Multiplanar, multisequence MR imaging of the brain was performed with and without contrast. INDICATION: Squamous cell carcinoma. 7 mL of Gadavist is administered intravenously. COMPARISON: 12/04/2016. FINDINGS: There is no diffusion restriction to suggest an acute infarct or other diffusion abnormality. The previously seen punctate focus of enhancement in the posterior aspect of the left temporal lobe is not visualized at this time. There is no enhancing lesion identified in the brain. There are stable periventricular and deep white matter T2 hyperintense signal abnormalities seen without mass effect or enhancement compatible with chronic microvascular ischemic changes. No hydrocephalus. The brainstem and the cerebellum appear unremarkable. The central vascular flow-voids appear unremarkable. The internal auditory canals and inner ear structures are symmetric. No hydrocephalus. The pituitary gland is normal in size. No hypothalamic or pineal region mass. There is mucosal thickening along the middle and inferior turbinates with moderate narrowing of the nasal passages. There is also fluid signal seen in the mastoid air cells bilaterally, slightly more prominent compared to the prior exam. IMPRESSION: The previously seen punctate focus of enhancement in the posterior aspect of the left temporal lobe is resolved, possibly related to interval treatment. No enhancing lesion to suggest metastasis at this time is seen. Dictated by: Dictated on workstation # [id number]
--- NOTE | 2017-02-08 20:35 | Diagnostic Imaging Report ---
EXAMINATION: Whole body bone scan. TECHNIQUE: After the intravenous administration of 25.8 mCi of Technetium 99m MDP, whole body delayed phase bone scan images were obtained with lateral views of the head and neck and the chest regions. INDICATION: Squamous of carcinoma. COMPARISON: 08/15/2016. FINDINGS: Study demonstrates normal distribution of the radiotracer with mild areas of activity along the joints including shoulders, SI joints, cervical spine and knees, more on the right side, suggestive of degenerative changes. Renal and urinary bladder activity is seen compatible with excretion. IMPRESSION: Stable bone scan findings with no evidence of osseous metastasis. Dictated by: Dictated on workstation # [id number]
--- NOTE | 2017-02-08 21:41 | Diagnostic Imaging Report ---
PROCEDURE: CT chest and abdomen with contrast. INDICATION: Squamous cell lung cancer. On chemotherapy. TECHNIQUE: CT imaging of the chest and abdomen following administration of intravenous contrast. CORRELATION STUDY: 10/18/2016. FINDINGS: CT CHEST: Left-sided central line is present. There is noted rather prominent contrast filling vessels about the left upper chest and within the mediastinum. Filling defect over the tip of the catheter is noted. Additional filling defect within the brachiocephalic vein. Heart size is normal. Presence of coronary artery calcification. Thoracic aortic contour is unremarkable. Previously noted left hilar node is smaller, not definitively measurable. Soft tissue thickening in the right infrahilar region is generally stable. Marked severity fibroemphysematous changes of the lung parenchyma. There is rather extensive bulla and bleb formation. Spiculated mass in the left lung base, inseparable from the diaphragm, has decreased in size currently measuring approximately 2.6 x 1.7 cm in axial plane x 1.7 cm craniocaudal. Previously measuring 4.3 x 4.1 x 3.1 cm, respectively. Increasing consolidations suggested about particularly the right lower lobe. Small right pleural effusion is also increased in size. CT ABDOMEN: Liver, spleen, pancreas and adrenal glands are unremarkable. Gallbladder is absent. Low-density areas of the kidneys are again demonstrated, incompletely characterized but appear generally stable. Rather significant aortoiliac vascular calcification. Slight aneurysmal dilatation of the abdominal aorta up to a maximum dimension of 3 cm. Partially visualized gastrointestinal tract without obstruction or inflammation. No upper abdominal ascites. No upper abdominal pathologically enlarged lymphadenopathy. Osseous structures demonstrate no acute abnormality or kenia destructive change. Bridging osteophytes of the thoracic spine. Pelvis is not imaged on this study. IMPRESSION: CT CHEST: 1. Left lower lobe pulmonary mass persists but has shown interval decrease in size. Favorable response to treatment. 2. Previously noted left hilar lymph node also decreased in size. 3. Suggestion of increasing consolidation in particularly the right lower lobe along with increasing size of right pleural effusion. 4. Abnormal contrast enhancing vessels over the left upper chest and through the mediastinum. Small caliber superior vena cava. This does raise concern for narrowing. Possibility of some thrombus along the tip of the left-sided central line is also suspect. CT ABDOMEN: Relatively stable appearance about the abdomen examination. No findings to suggest acute abnormality or abdominal metastatic disease. Dictated by: Dictated on workstation # [id number]
== END ==
LOC: CARD 10:45
PROVIDERS: ATTEND Internal Medicine Hematology & Oncology
DX: C34.81 Malignant neoplasm of overlapping sites of right bronchus and lung (principal)
CPT/HCPCS: 70553; 71260; 74160; 78306

== ENCOUNTER 2017-03-20 12:54 | Outpatient (RCR) | payer MEDICARE, OTHER ==
[2017-02-05 15:13] LABS: BASOPHILS % (AUTO) 0 % (0-10); EOSINOPHILS # (AUTO) 0.3 10^3/uL (0.0-0.3); EOSINOPHILS % (AUTO) 3 % (0-10); HEMATOCRIT 33 % (40-54); LYMPHOCYTES # (AUTO) 0.7 X 10^3 (1.0-4.0); LYMPHOCYTES % (AUTO) 7 % (12-44); MEAN CORPUSCULAR HEMOGLOBIN 34 PG (25-34); MEAN CORPUSCULAR HGB CONC 33 G/DL (32-36); MEAN CORPUSCULAR VOLUME 102 FL (80-99); MEAN PLATELET VOLUME 9.6 FL (7.4-10.4); MONOCYTES # (AUTO) 1.7 X 10^3 (0.0-1.0); MONOCYTES % (AUTO) 16 % (0-12); NEUTROPHILS # (AUTO) 8.2 X 10^3 (1.8-7.8); NEUTROPHILS % (AUTO) 75 % (42-75); PLATELET COUNT 526 10^3/uL (130-400); RED BLOOD COUNT 3.28 10^6/uL (4.35-5.85); RED CELL DISTRIBUTION WIDTH 16.5 % (10.0-14.5)
[2017-02-05 15:31] LABS: ALANINE AMINOTRANSFERASE 9 U/L (0-55); ALBUMIN 3.7 GM/DL (3.2-4.5); ALKALINE PHOSPHATASE 96 U/L (40-136); BILIRUBIN,TOTAL 0.4 MG/DL (0.1-1.0); BUN/CREATININE RATIO 19; CALCIUM 9.1 MG/DL (8.5-10.1); CARBON DIOXIDE 27 MMOL/L (21-32); CHLORIDE 105 MMOL/L (98-107); CREATININE SERUM 0.74 MG/DL (0.60-1.30); GFR ESTIMATED > 60; GLUCOSE 96 MG/DL (70-105); POTASSIUM 4.2 MMOL/L (3.6-5.0); SODIUM 142 MMOL/L (135-145); TOTAL PROTEIN 7.2 GM/DL (6.4-8.2)
[~2017-03-20 12:54] MED LIST changes: +ACHD5005 PO; -BARIUM SUSPENSION 2.1% (VANILLA SILQ) 450 ML PO ONE; -CATHETER FLUSH 10 ML SYR IV PRN; -GADOBUTROL 7.5 MMOL/7.5 ML (GADAVIST) VIAL IV ONE; +GEMCITABINE HCL (GENERIC) 1,000 MG, GEMCITABINE HCL (GENERIC) 500 MG in NS (IVPB) CANCE... IV SCH; -HYDR-3812 PO; -IOHEXOL 350 MG/ML 100 ML (OMNIPAQUE 350) VIAL IV ONE; -NS 100 ML (IVPB) BAG IV ONE; +NS IV 500 ML (CANCER CENTER) 500 ML IV SCH; +ONDANSETRON 16 MG, DEXAMETHASONE 10 MG/NS 50 ML IVPB IV SCH
[2017-03-20 13:28] LABS: BASOPHILS % (AUTO) 0 % (0-10); EOSINOPHILS # (AUTO) 0.2 10^3/uL (0.0-0.3); EOSINOPHILS % (AUTO) 2 % (0-10); HEMATOCRIT 38 % (40-54); HEMOGLOBIN 12.5 G/DL (13.3-17.7); LYMPHOCYTES # (AUTO) 1.3 X 10^3 (1.0-4.0); LYMPHOCYTES % (AUTO) 12 % (12-44); MEAN CORPUSCULAR HEMOGLOBIN 32 PG (25-34); MEAN CORPUSCULAR HGB CONC 33 G/DL (32-36); MEAN CORPUSCULAR VOLUME 98 FL (80-99); MEAN PLATELET VOLUME 9.7 FL (7.4-10.4); MONOCYTES # (AUTO) 0.9 X 10^3 (0.0-1.0); MONOCYTES % (AUTO) 9 % (0-12); NEUTROPHILS # (AUTO) 8.1 X 10^3 (1.8-7.8); NEUTROPHILS % (AUTO) 77 % (42-75); PLATELET COUNT 335 10^3/uL (130-400); RED BLOOD COUNT 3.92 10^6/uL (4.35-5.85); RED CELL DISTRIBUTION WIDTH 15.3 % (10.0-14.5); WHITE BLOOD COUNT 10.5 10^3/uL (4.3-11.0)
[2017-03-20 13:46] LABS: ALANINE AMINOTRANSFERASE 11 U/L (0-55); ALBUMIN 3.7 GM/DL (3.2-4.5); ALKALINE PHOSPHATASE 101 U/L (40-136); BILIRUBIN,TOTAL 0.3 MG/DL (0.1-1.0); BUN/CREATININE RATIO 23; CALCIUM 8.9 MG/DL (8.5-10.1); CARBON DIOXIDE 26 MMOL/L (21-32); CHLORIDE 106 MMOL/L (98-107); CREATININE SERUM 0.71 MG/DL (0.60-1.30); GFR ESTIMATED > 60; GLUCOSE 92 MG/DL (70-105); POTASSIUM 3.7 MMOL/L (3.6-5.0); SODIUM 143 MMOL/L (135-145); TOTAL PROTEIN 6.7 GM/DL (6.4-8.2)
[2017-05-03] MEDS ORDERED: CYANOCOBALAMIN INJ 1000 MCG/ML (CANCER CENTER) ONE (14:31)
== END 2017-05-06 | disposition home or self-care (01) ==
LOC: ONC 12:54
PROVIDERS: ATTEND Internal Medicine Hematology & Oncology
DX: C34.2 Malignant neoplasm of middle lobe, bronchus or lung (principal); C77.1 Secondary and unspecified malignant neoplasm of intrathoracic lymph nodes; I10 Essential (primary) hypertension; J44.9 Chronic obstructive pulmonary disease, unspecified; E03.9 Hypothyroidism, unspecified; I48.91 Unspecified atrial fibrillation; F17.220 Nicotine dependence, chewing tobacco, uncomplicated; Z79.899 Other long term (current) drug therapy; Z79.01 Long term (current) use of anticoagulants
CPT/HCPCS: 36415; 36591; 80053; 84443; 85025

== ENCOUNTER → 2017-05-07 | Outpatient (CLI) | payer MEDICARE, OTHER ==
[~2017-05-07] MED LIST changes: +BARIUM SUSPENSION 2.1% (VANILLA SILQ) 450 ML PO ONE; +CATHETER FLUSH 10 ML SYR IV PRN; -GEMCITABINE HCL (GENERIC) 1,000 MG, GEMCITABINE HCL (GENERIC) 500 MG in NS (IVPB) CANCE... IV SCH; +IOHEXOL 350 MG/ML 100 ML (OMNIPAQUE 350) VIAL IV ONE; +NS 250 ML (IVPB) BAG IV ONE; -NS IV 500 ML (CANCER CENTER) 500 ML IV SCH; -ONDANSETRON 16 MG, DEXAMETHASONE 10 MG/NS 50 ML IVPB IV SCH
--- NOTE | 2017-05-07 12:26 | Diagnostic Imaging Report ---
PROCEDURE: CT chest and abdomen with contrast. TECHNIQUE: Multiple contiguous axial images were obtained through the chest and abdomen after the administration of intravenous contrast. INDICATION: Lung cancer and recent completion of chemotherapy and radiation. COMPARISON: Comparison is made to study of 02/08/2017. FINDINGS: CT chest: Prominent venous collaterals are seen in the mediastinum which may be related to superior venocaval stenosis. There is extensive centrilobular emphysema, greater on the right. Area of consolidation with underlying pleural thickening and fluid involving the right infrahilar region is stable or mildly improved. No discrete mass or adverse change is identified. There is also persistent area of peripheral density in the left lung base just above the diaphragm measuring 2.2 x 0.8 cm. This appears to be mildly decreased in overall size when compared to previous examination. Focal subpleural density in the lateral aspect of left lung base is likely due to atelectasis or developing scar tissue. IMPRESSION: Stable or mildly improved area of presumed post-therapeutic effect in the infrahilar and basilar aspect of the lungs, bilaterally. No new abnormality apart from left basilar atelectasis or scarring is identified. CT abdomen: No focal hepatic or splenic lesion is identified. Pancreas, adrenal glands, and appendix are unremarkable. There is no evidence of renal abnormality. There is moderate aortoiliac atherosclerotic calcification without evidence of free fluid or pathologic adenopathy in the abdomen. IMPRESSION: Stable CT scan of the abdomen without evidence of acute abnormality or metastatic disease. Dictated by: Dictated on workstation # [id number]
--- NOTE | 2017-05-07 19:22 | Diagnostic Imaging Report ---
EXAMINATION: Nuclear medicine bone scan. INDICATION: Squamous cell carcinoma. FINDINGS: This study was performed following administration of 25.5 mCi of 99m-technetium MDP. Anterior and posterior whole-body images were obtained. Spot films in the lateral projection of the skull and thorax were also performed. The previous whole-body bone scan performed on 02/08/2017 failed to show any abnormal uptake that would suggest metastatic disease. On this study, there is still no abnormal uptake that would indicate metastatic disease. As noted on the prior exam, there is increased activity involving both knee and shoulder joints and both hip joints. These findings are most likely degenerative in nature. There is also increased activity in the lower lumbar spine and this too is degenerative in nature. There is slightly increased activity involving the left great toe. This is of uncertain etiology but unlikely to be clinically significant. Even so, correlation with the patient's physical exam will be recommended. Both kidneys do show excretion of the radiotracer. IMPRESSION: The appearance of the bone scan is stable when compared to the prior study. There is still no abnormal uptake to suggest metastatic disease. Dictated on workstation # [id number]
== END ==
LOC: RAD 10:57
PROVIDERS: ATTEND Internal Medicine Hematology & Oncology
DX: C34.81 Malignant neoplasm of overlapping sites of right bronchus and lung (principal)
CPT/HCPCS: 71260; 74160; 78306

== ENCOUNTER 2017-05-08 13:11 | Outpatient (RCR) | payer MEDICARE, OTHER ==
[2017-05-07 10:49] LABS: BASOPHILS % (AUTO) 1 % (0-10); EOSINOPHILS # (AUTO) 0.2 10^3/uL (0.0-0.3); EOSINOPHILS % (AUTO) 2 % (0-10); HEMATOCRIT 42 % (40-54); HEMOGLOBIN 13.9 G/DL (13.3-17.7); LYMPHOCYTES % (AUTO) 12 % (12-44); MEAN CORPUSCULAR HEMOGLOBIN 31 PG (25-34); MEAN CORPUSCULAR HGB CONC 33 G/DL (32-36); MEAN CORPUSCULAR VOLUME 95 FL (80-99); MEAN PLATELET VOLUME 9.6 FL (7.4-10.4); MONOCYTES # (AUTO) 0.8 X 10^3 (0.0-1.0); MONOCYTES % (AUTO) 10 % (0-12); NEUTROPHILS # (AUTO) 6.3 X 10^3 (1.8-7.8); NEUTROPHILS % (AUTO) 75 % (42-75); PLATELET COUNT 230 10^3/uL (130-400); RED BLOOD COUNT 4.46 10^6/uL (4.35-5.85); RED CELL DISTRIBUTION WIDTH 15.3 % (10.0-14.5); WHITE BLOOD COUNT 8.3 10^3/uL (4.3-11.0)
[2017-05-07 11:06] LABS: ALANINE AMINOTRANSFERASE 10 U/L (0-55); ALKALINE PHOSPHATASE 85 U/L (40-136); BILIRUBIN,TOTAL 0.4 MG/DL (0.1-1.0); BUN/CREATININE RATIO 24; CARBON DIOXIDE 24 MMOL/L (21-32); CHLORIDE 107 MMOL/L (98-107); CREATININE SERUM 0.74 MG/DL (0.60-1.30); GFR ESTIMATED > 60; GLUCOSE 90 MG/DL (70-105); POTASSIUM 4.2 MMOL/L (3.6-5.0); SODIUM 141 MMOL/L (135-145)
[~2017-05-08 13:11] MED LIST changes: -BARIUM SUSPENSION 2.1% (VANILLA SILQ) 450 ML PO ONE; -CATHETER FLUSH 10 ML SYR IV PRN; -IOHEXOL 350 MG/ML 100 ML (OMNIPAQUE 350) VIAL IV ONE; -NS 250 ML (IVPB) BAG IV ONE
== END 2017-06-20 09:33 | disposition home or self-care (01) ==
LOC: ONC 13:11
PROVIDERS: ATTEND Internal Medicine Hematology & Oncology
DX: C34.81 Malignant neoplasm of overlapping sites of right bronchus and lung (principal)
CPT/HCPCS: 36591; 80053; 85025; 99213

== ENCOUNTER 2017-09-05 10:59 | Outpatient (RCR) | payer MEDICARE, OTHER | END 2017-10-03 13:49 | disposition home or self-care (01) | LOC: ONC 10:59 | PROVIDERS: ATTEND Internal Medicine Hematology & Oncology | DX: C34.81 Malignant neoplasm of overlapping sites of right bronchus and lung (principal); C77.1 Secondary and unspecified malignant neoplasm of intrathoracic lymph nodes; J44.9 Chronic obstructive pulmonary disease, unspecified; E03.9 Hypothyroidism, unspecified; Z86.718 Personal history of other venous thrombosis and embolism; Z79.01 Long term (current) use of anticoagulants; Z79.82 Long term (current) use of aspirin; Z79.899 Other long term (current) drug therapy | CPT/HCPCS: 36591; 84443 ==

== ENCOUNTER → 2017-10-02 | Outpatient (CLI) | payer MEDICARE, OTHER ==
[~2017-10-02] MED LIST changes: +BARIUM SUSPENSION 2.1% (VANILLA SILQ) 450 ML PO ONE; +CATHETER FLUSH 10 ML SYR IV PRN; +IOHEXOL 350 MG/ML 100 ML (OMNIPAQUE 350) VIAL IV ONE; +NS 100 ML (IVPB) BAG IV ONE
[2017-10-02] MEDS: CATHETER FLUSH 10 ML SYR IV PRN ×2 (11:57→12:47)
--- NOTE | 2017-10-02 14:02 | Diagnostic Imaging Report ---
PROCEDURE: CT chest with contrast. CT abdomen with and without contrast. TECHNIQUE: Precontrast acquisitions were acquired through the abdomen. Multiple contiguous axial images were obtained through the chest and abdomen after administration of intravenous contrast. INDICATION: Cancer. COMPARISON: 07/20/2017. A chest radiograph performed in the interim dated 09/05/2017 was also reviewed. FINDINGS: CHEST: Having developed since the previous exam is a small right-sided pneumothorax, predominantly anteromedially in the visceral pleura. The adjacent lung along the margins of the pneumothorax is somewhat thickened and pleural air may be partially loculated. Followup to exclude progression, however, is recommended. There is no evidence for its tension. Extensive features of centrilobular emphysema with multiple peripheral air cysts are redemonstrated. No left-sided pleural air or pneumothorax. Paramediastinal opacity in the right perihilar and medial infrahilar lower lobe are unchanged which may be on a post radiation basis. 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 The azygous is patent. The infra-azygeal SVC is patent. No intracardiac chamber mass or thrombus. There are some venous collateral channels paraspinal, paracardiac, and about the chest wall. This has not appreciably changed from the previous CT. No intraluminal pulmonary arterial filling defect. The thoracic aorta is patent and nonaneurysmal. There is no pleural or pericardial effusion. There is a healing fracture at the right ninth rib near its costochondral junction. No acute bony abnormality. No hilar or mediastinal lymphadenopathy ABDOMEN: Atherosclerotic infrarenal aortic ectasia is unruptured and stable dilating to measure 2.9 cm. The liver and adrenals are negative. The gallbladder is surgically absent. The spleen is unremarkable. The pancreas is negative. The kidneys are unobstructed. There is no ascites or omental infiltration. No lymphadenopathy. IMPRESSION: CHEST: Development of right pneumothorax which may be loculated without evidence for its tension. There is severe underlying bullous emphysema and centrilobular COPD. Soft tissue fullness in the right perihilar area and paramediastinal airspace disease in the infrahilar right lower lobe are unchanged, suggestive of post radiation sequelae. A small amount of pleural fluid is stable. Healing right rib fracture. No new osseous pathology. 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 No central PE identified. 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 Stable negative liver and adrenals. No abdominal metastasis or acute finding is revealed. Results discussed with Dr. Bellamy in the cancer Center at time of this dictation Dictated by: Dictated on workstation # [id number]
--- NOTE | 2017-10-02 18:18 | Diagnostic Imaging Report ---
INDICATION: History of squamous cell carcinoma of the lung. TECHNIQUE: 27 mCi Tc 99m MDP was given IV. Delayed whole body imaging was obtained. COMPARISON: Comparison with 07/20/2017. FINDINGS: There is good uptake throughout the skeletal system bilaterally. There is a single focus of increased uptake noted along the costochondral margin in the region of the right eighth rib. No other foci of abnormal uptake have developed. IMPRESSION: Single focus of uptake anterior right eighth rib consistent with previously reported fracture. No new areas of uptake have developed that would suggest metastatic disease. Dictated by: Dictated on workstation # [id number]
== END ==
LOC: CARD 11:29
PROVIDERS: ATTEND Nurse Practitioner Adult Health
DX: C34.81 Malignant neoplasm of overlapping sites of right bronchus and lung (principal)
CPT/HCPCS: 71260; 74170; 78306

== ENCOUNTER → 2017-10-03 | Outpatient (CLI) | payer MEDICARE, OTHER ==
[~2017-10-03] MED LIST changes: -BARIUM SUSPENSION 2.1% (VANILLA SILQ) 450 ML PO ONE; -CATHETER FLUSH 10 ML SYR IV PRN; -IOHEXOL 350 MG/ML 100 ML (OMNIPAQUE 350) VIAL IV ONE; -NS 100 ML (IVPB) BAG IV ONE
--- NOTE | 2017-10-03 16:10 | Diagnostic Imaging Report ---
PA and lateral chest at 1:23 p.m. INDICATION: Pneumothorax. FINDINGS: The prior exam of 09/05/17 did note an irregular density projected over the right hilum. The subsequent CT chest exam of 09/05/17 noted an irregular fullness of the right infrahilar pulmonary region. The recent CT chest and abdomen exam of 10/02/17 indicated those findings were stable. However, that study did reveal a small right pleural effusion and a pneumothorax on the right. On this exam, the abnormal density about the right hilum is unchanged when compared to the prior exam of 09/05/17. The pleural effusion seen on CT exam is difficult to appreciate on this study but there is a small apical pneumothorax still evident. The distance between the thorax and the lung edge is approximately 6 mm. The left lung remains generally clear. There is still a band of atelectasis/scar formation in the left lung base. The heart is stable in size. The mediastinum is not widened. The osseous structures are intact. The left-sided Port-A-Cath is stable in position. IMPRESSION: 1. The abnormal density about the right hilum seen previously is again evident and no different. If further evaluation is desired, then bronchoscopy would be recommended. If additional imaging of this area is sought, then PET/CT should be obtained. 2. There is a small apical pneumothorax on the right. A followup exam would be recommended for continued evaluation. 3. There is no acute cardiopulmonary abnormality noted otherwise. 4. These results were discussed with Dr. Valverde. Dictated by: Dictated on workstation # [id number]
== END ==
LOC: RAD 12:51
PROVIDERS: ATTEND Internal Medicine Hematology & Oncology
DX: C34.2 Malignant neoplasm of middle lobe, bronchus or lung (principal); C34.81 Malignant neoplasm of overlapping sites of right bronchus and lung; J43.9 Emphysema, unspecified; J93.9 Pneumothorax, unspecified
CPT/HCPCS: 71046

== ENCOUNTER 2017-11-20 09:51 | Outpatient (RCR) | payer MEDICARE, OTHER ==
[2017-10-09 10:55] LABS: BASOPHILS % (AUTO) 0 % (0-10); EOSINOPHILS # (AUTO) 0.3 10^3/uL (0.0-0.3); EOSINOPHILS % (AUTO) 3 % (0-10); HEMATOCRIT 45 % (40-54); HEMOGLOBIN 15.2 G/DL (13.3-17.7); LYMPHOCYTES % (AUTO) 14 % (12-44); MEAN CORPUSCULAR HEMOGLOBIN 32 PG (25-34); MEAN CORPUSCULAR HGB CONC 34 G/DL (32-36); MEAN CORPUSCULAR VOLUME 95 FL (80-99); MEAN PLATELET VOLUME 9.8 FL (7.4-10.4); MONOCYTES # (AUTO) 0.9 X 10^3 (0.0-1.0); MONOCYTES % (AUTO) 11 % (0-12); NEUTROPHILS # (AUTO) 5.4 X 10^3 (1.8-7.8); NEUTROPHILS % (AUTO) 71 % (42-75); PLATELET COUNT 252 10^3/uL (130-400); RED BLOOD COUNT 4.76 10^6/uL (4.35-5.85); RED CELL DISTRIBUTION WIDTH 14.2 % (10.0-14.5); WHITE BLOOD COUNT 7.5 10^3/uL (4.3-11.0)
[2017-10-09 11:21] LABS: ALANINE AMINOTRANSFERASE 11 U/L (0-55); ALBUMIN 4.1 GM/DL (3.2-4.5); ALKALINE PHOSPHATASE 104 U/L (40-136); BILIRUBIN,TOTAL 0.3 MG/DL (0.1-1.0); BUN/CREATININE RATIO 20; CALCIUM 9.5 MG/DL (8.5-10.1); CARBON DIOXIDE 26 MMOL/L (21-32); CHLORIDE 105 MMOL/L (98-107); CREATININE SERUM 0.85 MG/DL (0.60-1.30); GFR ESTIMATED > 60; GLUCOSE 105 MG/DL (70-105); POTASSIUM 4.3 MMOL/L (3.6-5.0); SODIUM 140 MMOL/L (135-145); TOTAL PROTEIN 7.2 GM/DL (6.4-8.2)
--- NOTE | 2017-10-09 11:53 | Diagnostic Imaging Report ---
INDICATION: History of lung cancer. Cough. History of pneumothorax. COMPARISON: 10/03/2017 FINDINGS: Frontal and lateral radiographic views of the chest were obtained and demonstrate interval resolution of previous described small right apical pneumothorax. Lungs continue to show background of emphysematous disease. Note is also again made of persistent spiculated opacification projecting over the right infrahilar region and partially obscuring the superior right heart border. There may be persistent trace effusion on the right. No large effusion is seen on the left. Cardiac silhouette and pulmonary vasculature are within normal limits. Left-sided subclavian Port-A-Cath is again noted with tip in the high SVC. Bony structures are stable. IMPRESSION: 1. Interval resolution of previously described right-sided pneumothorax. 2. Persistent, stable spiculated right infrahilar opacity, which may be on the basis of postradiation changes. 3. Background of COPD. Dictated by: Dictated on workstation # [id number]
[2017-12-25 10:08] LABS: BASOPHILS % (AUTO) 0 % (0-10); EOSINOPHILS # (AUTO) 0.2 10^3/uL (0.0-0.3); EOSINOPHILS % (AUTO) 3 % (0-10); HEMATOCRIT 45 % (40-54); HEMOGLOBIN 14.9 G/DL (13.3-17.7); LYMPHOCYTES % (AUTO) 13 % (12-44); MEAN CORPUSCULAR HEMOGLOBIN 32 PG (25-34); MEAN CORPUSCULAR HGB CONC 33 G/DL (32-36); MEAN CORPUSCULAR VOLUME 95 FL (80-99); MEAN PLATELET VOLUME 9.7 FL (7.4-10.4); MONOCYTES # (AUTO) 0.7 X 10^3 (0.0-1.0); MONOCYTES % (AUTO) 10 % (0-12); NEUTROPHILS # (AUTO) 5.8 X 10^3 (1.8-7.8); NEUTROPHILS % (AUTO) 75 % (42-75); PLATELET COUNT 227 10^3/uL (130-400); RED BLOOD COUNT 4.73 10^6/uL (4.35-5.85); RED CELL DISTRIBUTION WIDTH 13.9 % (10.0-14.5); WHITE BLOOD COUNT 7.7 10^3/uL (4.3-11.0)
[2017-12-25 10:31] LABS: ALANINE AMINOTRANSFERASE 13 U/L (0-55); ALBUMIN 4.3 GM/DL (3.2-4.5); ALKALINE PHOSPHATASE 94 U/L (40-136); BILIRUBIN,TOTAL 0.5 MG/DL (0.1-1.0); BUN/CREATININE RATIO 22; CALCIUM 9.5 MG/DL (8.5-10.1); CARBON DIOXIDE 26 MMOL/L (21-32); CHLORIDE 105 MMOL/L (98-107); CREATININE SERUM 0.81 MG/DL (0.60-1.30); GFR ESTIMATED > 60; GLUCOSE 97 MG/DL (70-105); POTASSIUM 4.3 MMOL/L (3.6-5.0); SODIUM 142 MMOL/L (135-145); TOTAL PROTEIN 7.5 GM/DL (6.4-8.2)
== END 2017-12-25 09:47 | disposition home or self-care (01) ==
LOC: ONC 09:51
PROVIDERS: ATTEND Internal Medicine Hematology & Oncology
DX: C34.81 Malignant neoplasm of overlapping sites of right bronchus and lung (principal); C77.1 Secondary and unspecified malignant neoplasm of intrathoracic lymph nodes; J44.9 Chronic obstructive pulmonary disease, unspecified; E03.9 Hypothyroidism, unspecified; Z86.718 Personal history of other venous thrombosis and embolism; Z79.01 Long term (current) use of anticoagulants; Z79.82 Long term (current) use of aspirin; Z79.899 Other long term (current) drug therapy; Z45.2 Encounter for adjustment and management of vascular access device
CPT/HCPCS: 36591; 71046; 80053; 85025; 96523

== ENCOUNTER → 2017-12-25 | Outpatient (CLI) | payer MEDICARE, OTHER ==
[~2017-12-25] MED LIST changes: +IOHEXOL 350 MG/ML 100 ML (OMNIPAQUE 350) VIAL IV ONE; +NS 250 ML (IVPB) BAG IV ONE
[2017-12-25] MEDS: CATHETER FLUSH 10 ML SYR IV PRN ×2 (10:45→11:01)
--- NOTE | 2017-12-25 12:11 | Diagnostic Imaging Report ---
PROCEDURE: CT chest and abdomen with contrast. TECHNIQUE: Multiple contiguous axial images were obtained through the chest and abdomen after the administration of intravenous contrast. INDICATION: Squamous cell carcinoma. FINDINGS: The previous CT chest and abdomen exam of 10/02/2017 noted a small pneumothorax on the right. That finding has resolved. The previous study did note right lower lobe atelectasis/infiltrate and a small right pleural effusion. Those findings are again evident and essentially no different. There is no evidence for a mass in this area to suggest neoplasm. If further evaluation is desired, however, then PET/CT would be recommended. The emphysematous changes involving both lungs seen previously are again evident. There is no new area of pneumonia/atelectasis identified, and there is no sign of left pleural effusion. The heart is stable in size. The aorta is not abnormally dilated, and there is no sign of a dissection. There is no defect within the pulmonary arteries to indicate a pulmonary embolus either. The stenotic superior vena cava seen previously is again visualized. There is still a left-sided Port-A-Cath in place with the tip in the mid portion of the superior vena cava. There is no mediastinal or hilar adenopathy. The thyroid gland where visualized is unremarkable. The bone windows show no sign of a fracture or of a destructive lesion. The images through the abdomen show that the liver is homogeneous and not enlarged. As noted on the prior exam, the gallbladder is surgically absent. The spleen, pancreas, adrenals, kidneys, and inferior vena cava show no sign of an acute abnormality. The stomach is filled with oral contrast and consequently difficult to assess. There is no obvious gastric abnormality evident. As noted on the prior exam, there is atherosclerotic disease throughout the aorta. The distal abdominal aorta measures 2.9 cm in maximum transverse diameter. There is no periaortic fluid collection to suggest an acute abnormality of the aorta. There is no mass or free fluid collection visualized. IMPRESSION: 1. There is persistent involvement of the right infrahilar region by pneumonia/atelectasis, and there is a small right pleural effusion present. These findings are quite similar to the prior exam. There is no evidence for a mass in this area, but if further imaging is desired, then PET/CT would be recommended. 2. There are chronic pulmonary changes visualized, but there is no sign of an acute cardiopulmonary abnormality. 3. There is no acute abnormality of the abdomen. 4. There is atherosclerotic disease throughout the aorta, and there is borderline aneurysmal dilatation of the distal abdominal aorta. Dictated by: Dictated on workstation # [id number]
--- NOTE | 2017-12-25 14:50 | Diagnostic Imaging Report ---
INDICATION: Squamous cell lung carcinoma. TECHNIQUE: The patient was administered 27 mCi of technetium 99m MDP intravenously and whole-body imaging was performed after a 3 hour delay. COMPARISON: Whole bone scan from 10/02/2017. FINDINGS: Normal uptake of activity by the axial and appendicular skeleton is noted. There is uptake by both kidneys with excretion into the urinary bladder. The previously noted focus involving the anterior right 8th rib is again noted. No new foci of tracer accumulation are seen. There are no findings to suggest osseous metastatic disease. IMPRESSION: Stable whole body bone scan. There is no scintigraphic evidence of osseous metastatic disease. Dictated by: Dictated on workstation # [id number]
== END ==
LOC: CARD 10:17
PROVIDERS: ATTEND Internal Medicine Hematology & Oncology
DX: Z01.89 Encounter for other specified special examinations (principal); C34.81 Malignant neoplasm of overlapping sites of right bronchus and lung
CPT/HCPCS: 71260; 74160; 78306

== ENCOUNTER 2018-02-04 13:02 | Outpatient (RCR) | payer MEDICARE, OTHER ==
[~2018-02-04 13:02] MED LIST changes: -IOHEXOL 350 MG/ML 100 ML (OMNIPAQUE 350) VIAL IV ONE; -NS 250 ML (IVPB) BAG IV ONE
--- NOTE | 2018-02-04 15:01 | Diagnostic Imaging Report ---
INDICATION: Squamous cell lung cancer, cough. EXAMINATION: PA and lateral chest. FINDINGS: There is a left subclavian dual-chamber Port-A-Cath with the tip projecting over the SVC. There is some right hilar consolidation. There is some right and left perihilar atelectasis. IMPRESSION: Right perihilar consolidation, unchanged from 10/09/2017. Some discoid atelectasis is present bilaterally which is also unchanged from the prior study. There is no acute interval change since the prior exam. Dictated by: Dictated on workstation # [id number]
== END 2018-03-25 | disposition home or self-care (01) ==
LOC: ONC 13:02
PROVIDERS: ATTEND Internal Medicine Hematology & Oncology
DX: C34.81 Malignant neoplasm of overlapping sites of right bronchus and lung (principal); C77.1 Secondary and unspecified malignant neoplasm of intrathoracic lymph nodes; J44.9 Chronic obstructive pulmonary disease, unspecified; E03.9 Hypothyroidism, unspecified; Z86.718 Personal history of other venous thrombosis and embolism; Z79.01 Long term (current) use of anticoagulants; Z79.82 Long term (current) use of aspirin; Z79.899 Other long term (current) drug therapy; Z45.2 Encounter for adjustment and management of vascular access device
CPT/HCPCS: 36591; 71046; 71260; 74160; 78306; 96523; 99213

== ENCOUNTER → 2018-02-26 | Outpatient (CLI) | payer MEDICARE, OTHER ==
--- NOTE | 2018-02-26 15:29 | Diagnostic Imaging Report ---
INDICATION: Cough. History of lung cancer. COMPARISON: 02/04/2018. FINDINGS: Frontal and lateral radiographic views of the chest were obtained and continue to show prominent mass-like opacity within the right infrahilar region with linear opacities emanating from the hilar area suggestive of underlying scarring and/or atelectasis. Small focus of scarring or atelectasis is also noted within the lateral left lung base. There is also background of advanced COPD changes. There is no new focal consolidation, large effusion, nor pneumothorax. Cardiac silhouette and pulmonary vasculature are within normal limits. Left subclavian Port-A-Cath is in stable position. Bony structures are unremarkable. IMPRESSION: 1. Stable exam of the chest showing mass-like opacity within the infrahilar region with associated scarring and/or atelectasis of the right lower lung. 2. Background of COPD changes. Dictated by: Dictated on workstation # [id number]
== END ==
LOC: RAD 14:10
PROVIDERS: ATTEND Nurse Practitioner Family
DX: J44.9 Chronic obstructive pulmonary disease, unspecified (principal); Z85.118 Personal history of other malignant neoplasm of bronchus and lung
CPT/HCPCS: 71046

== ENCOUNTER 2018-03-26 19:19 | Inpatient (IN) | payer MEDICARE, OTHER ==
[~2018-03-26] VITALS: Ht 180.3 cm; Wt 71.8 kg
[~2018-03-26 19:19] MED LIST changes: -APIX5TAB PO; -GUAI120013 PO; -IOHEXOL 350 MG/ML 150 ML (OMNIPAQUE 350) VIAL IV ONE; -LATA2.5D5 OU; -LEVO75TA59 PO; -METO-387 PO; -MV,M1TAB4 PO; -NS 100 ML (IVPB) BAG IV ONE; -NYST1000 PO; -OMEP40CA36 PO; -RECEIVED CONTRAST (Hold Metformin) IV SCH
--- NOTE | 2018-03-26 19:30 | NUR ---
02 94-96% ON 2L, 02 [address] TO [address]L [address] MAYORGA FOR PNEUMOTHORAX.
[2018-03-26] MEDS ORDERED: NS IV 1000 ML 1,000 ML IV ONE (19:39)
[2018-03-26 19:56] LABS: BASOPHILS % (AUTO) 0 % (0-10); EOSINOPHILS # (AUTO) 0.1 10^3/uL (0.0-0.3); EOSINOPHILS % (AUTO) 1 % (0-10); HEMATOCRIT 43 % (40-54); HEMOGLOBIN 13.9 G/DL (13.3-17.7); LYMPHOCYTES # (AUTO) 0.9 X 10^3 (1.0-4.0); LYMPHOCYTES % (AUTO) 11 % (12-44); MEAN CORPUSCULAR HEMOGLOBIN 31 PG (25-34); MEAN CORPUSCULAR HGB CONC 33 G/DL (32-36); MEAN CORPUSCULAR VOLUME 96 FL (80-99); MEAN PLATELET VOLUME 9.5 FL (7.4-10.4); MONOCYTES # (AUTO) 0.6 X 10^3 (0.0-1.0); MONOCYTES % (AUTO) 8 % (0-12); NEUTROPHILS # (AUTO) 6.4 X 10^3 (1.8-7.8); NEUTROPHILS % (AUTO) 80 % (42-75); PLATELET COUNT 228 10^3/uL (130-400); RED CELL DISTRIBUTION WIDTH 14.2 % (10.0-14.5); WHITE BLOOD COUNT 7.9 10^3/uL (4.3-11.0)
--- NOTE | 2018-03-26 20:22 | ED General ---
General Chief Complaint: Respiratory Problems Stated Complaint: PARTIAL LUNG COLLAPSE Nursing Triage Note: TO ED VIA W/C FROM VEHICLE. HAD CT WITH CONTRAST TODAY AND WAS ALMOST TO [place]. [place] NEAR HOME WHEN HE WAS CALLED BY DR. VALDEZ AND TOLD HE HAD A COLLAPSED LUNG AND TO RETURN TO [facility]IA [facility]. O2 AT 2L PER HOME O2. STATES HE HAS BEEN FEELING MORE SOA. Nursing Sepsis Screen: No Definite Risk Source of Information: Patient Exam Limitations: No Limitations History of Present Illness Date Seen by Provider: Mar 26, 2018 Time Seen by Provider: 19:20 Initial Comments This 77-year-old gentleman presents to the emergency room as referred by Dr. Valdez due to a small pneumothorax in the right lung. He had a CT angiogram of the chest performed today as an outpatient. Patient was being evaluated by Dr. Valdez in anticipation of bronchoscopy. CT was performed because of tachycardia and dyspnea. He has a history of lung cancer that is presently stable per their report. He has had increasing shortness of breath and tachycardia recently. He denies chest pain or fever. Dr. Valdez requested he come through the ER to ensure stability before he is admitted for observation. He normally uses oxygen at 2 L/m at home. He is stable on this flow rate in the ER. In particular, patient complains of dyspnea and fatigue with exertion. Patient is anticoagulated on Eliquis. We are uncertain of the reasons at this time. Allergies and Home Medications Allergies Coded Allergies: No Known Drug Allergies (Verified , 12/09/14) Home Medications Hydrocodone Bit/Acetaminophen 1 Each Tablet, 1 TAB PO Q4H PRN Prescribed by: SCOTT SOL on 02/25/15 1343 Lisinopril/Hydrochlorothiazide 1 Each Tablet, 1 EACH PO DAILY, (Reported) Mv,Minerals/FA/Lycopene/Ginkgo 1 Each Tablet, 1 EACH PO DAILY, (Reported) Patient Home Medication List Home Medication List Reviewed: Yes Review of Systems Review of Systems Constitutional: no symptoms reported EENTM: see HPI Respiratory: see HPI Cardiovascular: no symptoms reported Gastrointestinal: no symptoms reported Genitourinary: no symptoms reported Musculoskeletal: no symptoms reported Skin: no symptoms reported Psychiatric/Neurological: No Symptoms Reported Hematologic/Lymphatic: See HPI Immunological/Allergic: no symptoms reported Past Gubzyvg-Nwtcrm-Omhswe Hx Past Med/Social Hx: Reviewed and Corrections made Patient Social History Type Used: Cigarettes Former Smoker, Quit: Mar 12, 2012 Recent Foreign Travel: No Contact w/Someone Who Travel: No Recent Infectious Disease Expo: No Recent Hopitalizations: No Immunizations Up To Date Tetanus Booster (TDap): Less than 5yrs Date of Pneumonia Vaccine: Nov 30, 2011 Date of Influenza Vaccine: Jan 10, 2015 Past Medical History Surgeries: Yes (port) Abdominal (hernia repair), Adenoidectomy, Gallbladder, Tonsillectomy, Vasectomy Respiratory: Yes (lung cancer, chronic hypoxia) COPD Cardiac: Yes Hypertension, Irregular Heartbeat Neurological: No Reproductive Disorders: No Sexually Transmitted Disease: No HIV/AIDS: No Genitourinary: No Gastrointestinal: No Gall Bladder Disease Musculoskeletal: No Endocrine: Yes Hypothyroidsim Loss of Vision: Denies Hearing Impairment: Denies Lung, Melanoma Adverse Reaction/Blood Tranf: No Family Medical History Reviewed and Corrections made Cancer Physical Exam Vital Signs Vital Signs - First Documented Capillary Refill : Less Than 3 Seconds Height, Weight, BMI Height: 5'11" Weight: 152lbs. oz. 68.463940vd; 28.12 BMI Method:Stated General Appearance: No Apparent Distress, WD/WN HEENT: PERRL/EOMI, Normal ENT Inspection, Other (oropharynx somewhat dry) Neck: Normal Inspection Respiratory: Lungs Clear, Normal Breath Sounds, No Accessory Muscle Use, No Respiratory Distress Cardiovascular: No Edema, No Murmur, Tachycardia Extremity: Normal Inspection, No Pedal Edema 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: Alert, Oriented x3, No Motor/Sensory Deficits, Normal Mood/Affect, change lead II-XII Norm as Tested Skin: Normal Color, Warm/Dry Progress/Results/Core Measures Suspected Sepsis Recent Fever Within 48 Hours: No Infection Criteria Present: None New/Unexplained Altered Menta: No Sepsis Screen: No Definite Risk SIRS Temperature:98.0 Pulse: 106 Respiratory Rate: 24 Laboratory Tests 03/26/18 19:48: White Blood Count 7.9 Blood Pressure 121 /96 Mean: 104 Laboratory Tests 03/26/18 19:48: Creatinine 0.78, Platelet Count 228, Total Bilirubin 0.3 Results/Orders Lab Results Laboratory Tests Test 03/26/18 19:48 Range/Units White Blood Count 7.9 4.3-11.0 10^3/uL Red Blood Count 4.42 4.35-5.85 10^6/uL Hemoglobin 13.9 13.3-17.7 G/DL Hematocrit 43 40-54 % Mean Corpuscular Volume 96 80-99 FL Mean Corpuscular Hemoglobin 31 25-34 PG Mean Corpuscular Hemoglobin Concent 33 32-36 G/DL Red Cell Distribution Width 14.2 10.0-14.5 % Platelet Count 228 130-400 10^3/uL Mean Platelet Volume 9.5 7.4-10.4 FL Neutrophils (%) (Auto) 80 H 42-75 % Lymphocytes (%) (Auto) 11 L 12-44 % Monocytes (%) (Auto) 8 0-12 % Eosinophils (%) (Auto) 1 0-10 % Basophils (%) (Auto) 0 0-10 % Neutrophils # (Auto) 6.4 1.8-7.8 X 10^3 Lymphocytes # (Auto) 0.9 L 1.0-4.0 X 10^3 Monocytes # (Auto) 0.6 0.0-1.0 X 10^3 Eosinophils # (Auto) 0.1 0.0-0.3 10^3/uL Basophils # (Auto) 0.0 0.0-0.1 10^3/uL Sodium Level 141 135-145 MMOL/L Potassium Level 4.0 3.6-5.0 MMOL/L Chloride Level 104 98-107 MMOL/L Carbon Dioxide Level 23 21-32 MMOL/L Anion Gap 14 5-14 MMOL/L Blood Urea Nitrogen 17 7-18 MG/DL Creatinine 0.78 0.60-1.30 MG/DL Estimat Glomerular Filtration Rate > 60 BUN/Creatinine Ratio 22 Glucose Level 132 H 70-105 MG/DL Calcium Level 9.3 8.5-10.1 MG/DL Corrected Calcium 9.4 8.5-10.1 MG/DL Total Bilirubin 0.3 0.1-1.0 MG/DL Aspartate Amino Transf (AST/SGOT) 15 5-34 U/L Alanine Aminotransferase (ALT/SGPT) 15 0-55 U/L Alkaline Phosphatase 91 40-136 U/L Total Protein 6.8 6.4-8.2 GM/DL Albumin 3.9 3.2-4.5 GM/DL My Orders Orders - VESNA MAYORGA MD Chest Pa/Lat (2 View) (03/26/18 19:24) O2 (03/26/18 19:25) Cbc With Automated Diff (03/26/18 19:25) Comprehensive Metabolic Panel (03/26/18 19:25) Implanted Port: Access (03/26/18 19:39) Saline Lock/Iv-Start (03/26/18 19:39) Ns Iv 1000 Ml (Sodium Chloride 0.9%) (03/26/18 19:39) Medications Given in ED Current Medications Medications Dose Ordered Sig/Jori Route Start Time Stop Time Status Last Admin Dose Admin Sodium Chloride 1,000 ml @ 0 mls/hr Q0M ONCE IV 03/26/18 19:39 03/26/18 19:41 DC 03/26/18 20:00 999 MLS/HR Vital Signs/I&O 03/26/18 03/26/18 19:25 19:25 Temp 98.0 Pulse 106 Resp 24 B/P (MAP) 121/96 (104) Pulse Ox 92 92 O2 Delivery Nasal Cannula Nasal Cannula O2 Flow Rate 2.00 2.00 Capillary Refill : Less Than 3 Seconds Blood Pressure Mean: 104 Progress Note : Progress Note Baseline labs and chest x-ray were obtained. Patient was placed on oxygen at 4 L/m by nasal cannula and was stable at that rate. Case was discussed with Dr. Valdez and Dr. Beard. Admission for observation to the medical floor with telemetry was requested by Dr. Valdez. Target O2 saturation will be 95 percent by nasal cannula. X-ray will be obtained in the morning. Eliquis will be held in anticipation of possible procedures, including possibly bronchoscopy. Patient was hydrated with 1 L of IV normal saline as he has not been able to drink well today and received IV contrast with the CT angiogram. Patient was assessed on telemetry and found to have a sinus rhythm with some premature complexes. Diagnostic Imaging Diagonstic Imaging: Xray Plain Films/CT/US/NM/MRI: chest Comments Chest x-ray viewed by me and report reviewed. See report below: NAME: DELROY WINCHESTER JR [facility] REC#: [id number] PT STATUS: REG ER : 1940 PHYSICIAN: VESNA MAYORGA MD ADMIT DATE: 03/26/18/ER Draft Date of Exam:01/15/19 CHEST PA/LAT (2 VIEW) EXAM: CHEST PA/LAT (2 VIEW) INDICATION: Pneumothorax. History of lung cancer. COMPARISON: CTA chest 03/26/2018. FINDINGS: Advanced emphysematous changes. Consolidation in the perihilar right lung corresponding to the previous findings. A tiny right pneumothorax measures 0.5 cm at the right lung apex. Left subclavian tunneled port CVC tip mid SVC. No definite pleural effusion. No acute osseous findings. IMPRESSION: 1. Tiny right pneumothorax. 2. Stable consolidation in the perihilar right lung. 3. Advanced emphysema. Dictated on workstation # [id number] Dict: 03/26/182018 Trans: 03/26/182023 TONY [id number] Interpreted by: AFSHIN BAER MD Departure Impression Primary Impression: Pneumothorax, right Additional Impression: Lung cancer Qualified Codes: C34.90 - Malignant neoplasm of unspecified part of unspecified bronchus or lung Disposition: XFER SHT-TRM HOSP Condition: Stable Admissions Decision to Admit Reason: Admit from ER (General) Decision to Admit/Date: Mar 26, 2018 Time/Decision to Admit Time: 20:35 Departure-Patient Inst. Referrals: LUCIA BEARD MD (PCP/Family) Primary Care Physician VESNA MAYORGA MD Mar 26, 2018 20:22
[2018-03-26 20:24] LABS: ALANINE AMINOTRANSFERASE 15 U/L (0-55); ALBUMIN 3.9 GM/DL (3.2-4.5); ALKALINE PHOSPHATASE 91 U/L (40-136); BILIRUBIN,TOTAL 0.3 MG/DL (0.1-1.0); BUN/CREATININE RATIO 22; CALCIUM 9.3 MG/DL (8.5-10.1); CARBON DIOXIDE 23 MMOL/L (21-32); CHLORIDE 104 MMOL/L (98-107); CREATININE SERUM 0.78 MG/DL (0.60-1.30); GFR ESTIMATED > 60; GLUCOSE 132 MG/DL (70-105); SODIUM 141 MMOL/L (135-145); TOTAL PROTEIN 6.8 GM/DL (6.4-8.2)
--- NOTE | 2018-03-26 21:35 | NUR ---
DELROY WINCHESTER JR admitted to room 423-1, with an admitting diagnosis of PNEUMOTHORAX, on 03/26/18 from ED via , accompanied by STAFF AND FAMILY.DELROY WINCHESTER JR introduced to surroundings, call light, bed controls, phone, TV, temperature control, lights, meal times, smoking policy, visitor policy, side rail policy, bathrooms and showers. Patient Rights given to patient in the handbook. DELROY WINCHESTER JR verbalizes understanding that [facility] is not responsible for the loss or damage to any personal effects or valuables that are kept in the patients possession during their hospitalization. PLANS OF CARE DISCUSSED WITH PT AND VERBALIZES UNDERSTANDING. DELROY WINCHESTER JR verbalizes understanding of Interdisciplinary Patient Education. Patient and/or family were informed about the Rapid Response Team and its purpose.
[2018-03-26 23:09] VITALS: BP 110/74
[2018-03-26] MEDS ORDERED: RT-ALBUTEROL SULF 2.5 MG/3 ML PRE-MIX VIAL INH PRN (23:45)
[2018-03-26 23:54] VITALS: BP 98/63
[2018-03-27 00:05] VITALS: BP 106/58
[2018-03-27 03:52] VITALS: BP 117/75
--- NOTE | 2018-03-27 08:29 | Diagnostic Imaging Report ---
INDICATION: Pneumothorax. TIME OF EXAM: 3:17 AM Correlation is made with prior study one day earlier. FINDINGS: Heart size is stable. No significant pneumothorax is seen on today's study. Left chest wall port is in place. Areas of parenchymal density in the right infrahilar region corresponds with CT findings. There is some linear density in left base, unchanged. IMPRESSION: Overall stable appearance of chest since yesterday, although no significant pneumothorax on the right is identified on this current exam. Dictated by: Dictated on workstation # [id number]
[2018-03-27 08:45] VITALS: BP 124/71
[2018-03-27] MEDS ORDERED: OMEP40CA36 PO (08:58)
[2018-03-27] MEDS ORDERED: MV,M1TAB4 PO (08:58)
[2018-03-27] MEDS ORDERED: GUAI120013 PO (08:58)
[2018-03-27] MEDS ORDERED: LATA2.5D5 OU (08:58)
[2018-03-27] MEDS ORDERED: NYST1000 PO (08:58)
[2018-03-27] MEDS ORDERED: LEVO75TA59 PO (08:58)
[2018-03-27] MEDS ORDERED: APIX5TAB PO (08:58)
[2018-03-27] MEDS ORDERED: METO-387 PO (08:58)
--- NOTE | 2018-03-27 08:59 | NUR ---
CALLED AND WENT OVER THE EXT MED HX WITH THE PATIENTS . SHE VERIFIED HOW HE IS TAKING HIS MEDICATIONS. SHE STATES HE WAS TOLD TO TAKE THE MUCINEX BID WHEN HE STARTED THE NYSTATIN SUSPENSION AND HE WAS NOT QUITE FINISHED WITH THAT THERAPY AT THE TIME OF ADMISSION.
--- NOTE | 2018-03-27 09:09 | History & Physicial ---
History of Present Illness History of Present Illness Reason for visit/HPI PT WAS ADMITTED FROM THE EMERGENCY DEPARTMENT AFTER HAVING A CT SCAN WHICH SHOWED A SMALL PLEURAL EFFUSION. DR. NIX ORDERED THE CT SCAN AND AFTER HE SAW THE REPORT, HE ADVISED THE PT TO GO TO THE EMERGENCY DEPARTMENT FOR ADMISSION. THE PT REPORTS PERSISTENT SHORTNESS OF BREATH, WORSENING OVER THE PAST FEW MONTHS. HE HAS HX OF LUNG CANCER WHICH HAS BEEN STABLE PER DR. GARCIA'S REPORTING. Date of Admission Mar 26, 2018 at 20:50 Date Seen by a Provider: Mar 27, 2018 Time Seen by a Provider: 08:55 I consulted on this patient on 03/27/18 09:04 Attending Physician Lucia Berad MD Admitting Physician Lucia Beard MD Consult Allergies and Home Medications Allergies Coded Allergies: No Known Drug Allergies (Verified , 12/09/14) Home Medications Albuterol Sulfate 1 Puff Puff, 2 PUFF INH Q6H 1 PUFF = 90 MCG Prescribed by: LUCIA BEARD on 03/29/18 1201 Amoxicillin/Potassium Clav 1 Each Tablet, 1 EACH PO BID Prescribed by: LUCIA BEARD on 03/29/18 1201 Apixaban 5 Mg Tablet, 5 MG PO BID, (Reported) Fluticasone/Salmeterol 12 Gm Hfa.aer.ad, 2 PUFF IH BID@08,20 Prescribed by: LUCIA BEARD on 03/29/18 1201 Guaifenesin 1,200 Mg Tab.er.12h, 1,200 MG PO BID, (Reported) Lactobacillus Acidophilus 1 Each Capsule, 1 EACH PO TID Prescribed by: LUCIA BEARD on 03/29/18 1201 Latanoprost 2.5 Ml Drops, 1 DROP OU HS, (Reported) Levothyroxine Sodium 75 Mcg Tablet, 75 MCG PO DAILY, (Reported) Metoprolol Succinate 25 Mg Tab.er.24h, 12.5 MG PO DAILY, (Reported) TAKES 1/2 (25MG) TABLET Mv,Minerals/FA/Lycopene/Ginkgo 1 Each Tablet, 1 TAB PO DAILY, (Reported) Nystatin 100,000 Unit/1 Ml Oral.susp, 5 ML PO QID, (Reported) 10 DAY SUPPLY FILLED 03-18-18 Omeprazole 40 Mg Capsule.dr, 40 MG PO DAILY, (Reported) Patient Home Medication List Home Medication List Reviewed: Yes Past Afvkpdq-Vtkylg-Ondpwk Hx Patient Social History Marrital Status: Living Status: LIVES IN [place] WITH SPOUSE Employed/Student: retired Alcohol Use: Past History Recreational Drug Use: No Smoking Status: Former Smoker Former Smoker, Quit: Mar 12, 2012 Type Used: Cigarettes, Smokeless Tobacco 2nd Hand Smoke Exposure: No Physical Abuse Screen: No Sexual Abuse: No Recent Foreign Travel: No Contact w/other who traveled: No Recent Hopitalizations: No Recent Infectious Disease Expo: No Immunizations Up To Date Tetanus Booster (TDap): Less than 5yrs Date of Pneumonia Vaccine: Nov 30, 2011 Date of Influenza Vaccine: Dec 24, 2017 Seasonal Allergies Seasonal Allergies: No Surgeries Yes (port) Abdominal (hernia repair), Adenoidectomy, Gallbladder, Tonsillectomy, Vasectomy Respiratory Yes (lung cancer, chronic hypoxia) Cardiovascular Yes Hypertension, Irregular Heartbeat Neurological No Reproductive System Hx Reproductive Disorders: No Sexually Transmitted Disease: No HIV/AIDS: No Genitourinary No Gastrointestinal No Gall Bladder Disease Musculoskeletal No Endocrine History of Endocrine Disorders: Yes Endocrine Disorders: Hypothyroidsim HEENT History of HEENT Disorders: Yes Loss of Vision: Denies Hearing Impairment: Hard of Hearing Cancer Yes Lung, Melanoma Psychosocial History of Psychiatric Problem: No Integumentary History of Skin or Integumenta: No Blood Transfusions History of Blood Disorders: No Adverse Reaction to a Blood Tr: No Reviewed Nursing Assessment Reviewed/Agree w Nursing PMH: Yes Family Medical History Significant Family History: Cancer, Hypertension Review of Systems Constitutional: No chills, No fever; malaise, weakness, weight loss EENTM: hearing loss, hoarseness; No throat pain Respiratory: cough, dyspnea on exertion; No hemoptysis; short of breath Cardiovascular: No chest pain, No palpitations Gastrointestinal: No abdominal pain, No constipation, No nausea, No vomiting Genitourinary: no symptoms reported Musculoskeletal: muscle weakness Skin: no symptoms reported Psychiatric/Neurological: Denies Anxiety, Denies Depressed; Weakness All Other Systems Reviewed Negative Unless Noted: Yes Physical Exam Vital Signs Capillary Refill : Less Than 3 Seconds Height, Weight, BMI Height: 5'11" Weight: 158lbs. 5.0oz. 71.716783gd; 28.12 BMI Method:Stated General Appearance: Mild Distress, Thin, Other (HOARSE VOICE) Eyes: Bilateral Eye Normal Inspection, Bilateral Eye PERRL, Bilateral Eye EOMI HEENT: PERRL/EOMI, Pharynx Normal Neck: Full Range of Motion, Non Tender, Supple Respiratory: Chest Non Tender, Decreased Breath Sounds Cardiovascular: Regular Rate, Rhythm Gastrointestinal: Normal Bowel Sounds, No Organomegaly, No Pulsatile Mass, Non Tender, Soft Rectal: Deferred Back: Normal Inspection, No CVA Tenderness, No Vertebral Tenderness Extremity: Normal Capillary Refill, Normal Inspection, Normal Range of Motion, Non Tender, No Calf Tenderness, No Pedal Edema 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: Alert, Oriented x3, No Motor/Sensory Deficits, Normal 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 GARCIA AND DR. NIX - WILL CONTINUE WITH IV ANTIBIOTICS, MONITOR SERIAL CHEST XRAYS TO SEE IF THE PNEUMOTHORAX RESOLVES. CONTINUE WITH OXYGEN AND SUPPORTIVE CARE AT THIS TIME. DR. GARCIA WILL FOLLOW THE CHEST CT SCAN OUTPATIENT. HYPERTENSION AND ATRIAL FIBRILLATION - CONTINUE WITH ELIQUIS AND METOPROLOL FOR RATE CONTROL. HYPOTHYROIDISM - RESTAT HOME REGIMEN ESOPHAGEAL REFLUX - RESTART OMEPRAZOLE UNDERWEIGHT - INCREASE CALORIC INTAKE CT NAME: DELROY WINCHESTER [facility] REC#: [id number] PT STATUS: REG CLI : 1940 PHYSICIAN: ROSALINDA MAURICIO APRN ADMIT DATE: 03/26/18/RAD Signed Date of Exam: 03/26/18 CT ANGIO CHEST W PROCEDURE: CT angiography of the chest with contrast. TECHNIQUE: Multiple contiguous axial images were obtained through the chest after uneventful bolus administration of intravenous contrast. 2D reconstructed CTA MIP acquisitions were also performed. INDICATION: History of lung carcinoma. Patient has COPD, cough and severe shortness of air on exertion. COMPARISON: Comparison is made with prior CT chest from 12/25/2017. FINDINGS: Evaluation of the pulmonary arterial system is without evidence of thromboembolism. No definite filling defects are seen within central, lobar or segmental branches. The thoracic aorta is normal caliber. No dissection is seen. No pericardial or pleural fluid is identified. No axillary lymphadenopathy is seen. There is abnormal soft tissue in the AP window which appears to be increased since prior exam measuring approximately 3.0 x 1.4 cm. There is also some increase in prominence of soft tissue in the left infrahilar region measuring 2.7 x 2.7 cm. This area measured approximately 2.0 x 2.5 cm on prior. Right hilum again demonstrates regions of soft tissue which has the appearance of atelectasis or pneumonia. There is persistent parenchymal consolidation in the right lower lobe with some air bronchograms. There is also continued small right pleural effusion. There is a right basilar pneumothorax which appears new since prior CT. An irregular density has developed in the left lower lobe posterior laterally measuring 2.2 cm. This may represent an area of infiltrate however a mass cannot be entirely excluded. Severe emphysematous changes are seen in both lungs. Upper abdomen is unremarkable. IMPRESSION: 1. Development of a small right basilar pneumothorax when compared with prior CT from 12/25/2017. 2. Continued infiltrate/atelectasis and pleural fluid in the right base, similar to prior CT. There has been some increase in soft tissue in the AP window as well as left infrahilar region when compared with prior CT. Enlarging neoplasm cannot be excluded. There is also spiculated density that is new in the posterior lateral left lower lobe, indeterminate between infiltrate versus neoplasm. Continued close CT chest followup is recommended to confirm stability or resolution. Dictated by: Dictated on workstation # [id number] Dict: 03/26/18 1645 Trans: 03/26/184 Interpreted by: RAFAEL HITCHCOCK MD Electronically signed by: RAFAEL HITCHCOCK MD 03/26/18 1904 Admission Diagnosis ACUTE PNEUMOTHORAX LUNG CANCER PNEUMONIA HYPERTENSION ATRIAL FIBRILLATION HYPOTHYROIDISM ESOPHAGEAL REFLUX UNDERWEIGHT Admission Status: Inpatient Order (span 2 midnights) Reason for Inpatient Admission: PT ANTICIPATED TO NEED 48 - 72 HOURS IN THE HOSPITAL FOR STABILIZATION OF PNEUMOTHORAX AND TREATMENT OF PNEUMONIA Clinical Quality Measures DVT/VTE Risk/Contraindication: Risk Factor Score Per Nursin RFS Level Per Nursing on Admit: 4+=Very High LUCIA BEARD MD Mar 27, 2018 09:09
[2018-03-27] MEDS ORDERED: ENOXAPARIN 40 MG/0.4 ML (LOVENOX) SYR SC SCH (09:30)
[2018-03-27] MEDS ORDERED: PIPERACILLIN/TAZO 4.5 GM/NS 100 ML IV NR ×2 (09:57)
[2018-03-27 12:50] VITALS: BP 110/61
--- NOTE | 2018-03-27 14:43 | Pulmonary Consultation ---
History of Present Illness History of Present Illness Date of Consultation 03/27/18 14:36 Time Seen by Provider: 14:36 Date of Admission History of Present Illness 77yo with hx of severe oxygen dependent emphysema, lung cancer admitted from ED secondary to spontaneous right PTX that was found on CT of chest ordered by myself. Dr. Beard's office referred pt to me regarding possible bronchscopy secondary to persistent pneumonia worsening SOB, and mucous plugging. After seeing patient in my office I ordered CT of chest in anticipation for bronchoscopy on . I was called by Dr. Giang secondary to findings of acute spontaneous PTX on CT of chest. My office called pt to go to ED for evaluation and admission. Allergies and Home Medications Allergies Coded Allergies: No Known Drug Allergies (Verified , 12/09/14) Home Medications Apixaban 5 Mg Tablet, 5 MG PO BID, (Reported) Guaifenesin 1,200 Mg Tab.er.12h, 1,200 MG PO BID, (Reported) Latanoprost 2.5 Ml Drops, 1 DROP OU HS, (Reported) Levothyroxine Sodium 75 Mcg Tablet, 75 MCG PO DAILY, (Reported) Metoprolol Succinate 25 Mg Tab.er.24h, 12.5 MG PO DAILY, (Reported) TAKES 1/2 (25MG) TABLET Mv,Minerals/FA/Lycopene/Ginkgo 1 Each Tablet, 1 TAB PO DAILY, (Reported) Nystatin 100,000 Unit/1 Ml Oral.susp, 5 ML PO QID, (Reported) 10 DAY SUPPLY FILLED 03-18-18 Omeprazole 40 Mg Capsule.dr, 40 MG PO DAILY, (Reported) Past Xvcyjjt-Dilwle-Iueovx Hx Past Med/Social Hx: Reviewed and Corrections made Patient Social History Alcohol Use: Past History Recreational Drug Use: No Smoking Status: Former Smoker Type Used: Cigarettes, Smokeless Tobacco Former Smoker, Quit: Mar 12, 2012 2nd Hand Smoke Exposure: No Recent Foreign Travel: No Contact w/Someone Who Travel: No Recent Infectious Disease Expo: No Recent Hopitalizations: No Immunizations Up To Date Tetanus Booster (TDap): Less than 5yrs Date of Pneumonia Vaccine: Nov 30, 2011 Date of Influenza Vaccine: Dec 24, 2017 Seasonal Allergies Seasonal Allergies: No Past Medical History Surgeries: Yes (port) Abdominal (hernia repair), Adenoidectomy, Gallbladder, Tonsillectomy, Vasectomy Respiratory: Yes (lung cancer, chronic hypoxia) COPD Cardiac: Yes Hypertension, Irregular Heartbeat Neurological: No Reproductive Disorders: No Sexually Transmitted Disease: No HIV/AIDS: No Genitourinary: No Gastrointestinal: No Gall Bladder Disease Musculoskeletal: No Endocrine: Yes Hypothyroidsim HEENT: Yes Loss of Vision: Denies Hearing Impairment: Hard of Hearing Cancer: Yes Lung, Melanoma Psychosocial: No Integumentary: No Blood Disorders: No Adverse Reaction/Blood Tranf: No Family Medical History Reviewed and Corrections made Cancer Review of Systems Time Seen by Provider: 15:55 Constitutional: Sweats, Weakness, Malaise Respiratory: Cough, Shortness of breath, SOB with excertion, Wheezing, Sputum; No: Hemoptysis Cardiovascular: Orthopnea; No: Chest Pain, Palpitations Sepsis Event Evaluation Height, Weight, BMI Height: 5'11" Weight: 158lbs. 5.0oz. 71.248147ms; 28.12 BMI Method:Stated Exam Exam Vital Signs Date Time Temp Pulse Resp B/P (MAP) Pulse Ox O2 Delivery O2 Flow Rate FiO2 03/27/18 12:50 99.6 97 20 110/61 (77) 96 Nasal Cannula 1.50 03/27/18 08:45 98.6 85 20 124/71 (88) 95 Nasal Cannula 1.50 03/27/18 07:01 99 Nasal Cannula 1.50 03/27/18 07:00 79 03/27/18 03:52 98.8 98 16 117/75 (89) 97 Nasal Cannula 1.50 03/27/18 02:01 96 Nasal Cannula 1.50 03/27/18 01:00 91 03/27/18 00:05 106/58 (74) 03/26/18 23:54 97.4 95 16 98/63 (75) 99 Nasal Cannula 1.50 03/26/18 23:09 98 Nasal Cannula 1.50 03/26/18 23:09 97 98 03/26/18 22:15 110 03/26/18 21:35 Nasal Cannula 1.00 03/26/18 21:25 98.0 88 20 110/74 (86) 96 Nasal Cannula 3.00 03/26/18 19:25 92 Nasal Cannula 2.00 03/26/18 19:25 98.0 106 24 121/96 (104) 92 Nasal Cannula 2.00 I & O 03/27/18 07:00 Intake Total 1050 ml Output Total 1 ml Balance 1049 ml Height & Weight Height: 5'11" Weight: 158lbs. 5.0oz. 71.313888xh; 28.12 BMI Method:Stated General Appearance: No Apparent Distress, WD/WN HEENT: PERRL/EOMI, Normal ENT Inspection, Other (oropharynx somewhat dry) Neck: Normal Inspection Respiratory: No Accessory Muscle Use, No Respiratory Distress, Crackles, Decreased Breath Sounds, Wheezing Cardiovascular: No Edema, No Murmur, Tachycardia Capillary Refill: Less Than 3 Seconds Extremity: Normal Inspection, No Pedal Edema 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: Alert, Oriented x3, No Motor/Sensory Deficits, Normal Mood/Affect, records officer II-XII Norm as Tested Skin: Normal Color, Warm/Dry Results Lab Laboratory Tests 03/26/18 19:48 Assessment/Plan Assessment/Plan Spontaneous Right small PTX -Continue to monitor -Repeat CXR this AM Severe oxygen dependent COPD/emphysema -Oxygen -SVNs -Advair hx of squamous cell cancer -pt is being monitored by cancer center [facility] psychosis/delirium -Add low dose Risperdal PNA with atelectasis - failed out patient treatment -SERVANDO Gray DO Mar 27, 2018 14:43
[2018-03-27] MEDS: PIPERACILLIN SODIUM/TAZOBACTAM 4.5 GM in NS (IVPB) 100 ML IV SCH (15:43)
[2018-03-27 16:00] VITALS: BP 110/64
--- NOTE | 2018-03-27 17:10 | Diagnostic Imaging Report ---
EXAM: CHEST 1 VIEW, AP/PA ONLY INDICATION: Pneumothorax. COMPARISON: Chest radiograph from earlier today. FINDINGS: A right apical pneumothorax is more evident on today's exam than the one from earlier today. This measures 1.1 cm at the lung apex. Normal heart size and central pulmonary vascularity. Hyperinflation with scattered scarring. Persistent consolidation in the perihilar right lower lobe. No pleural effusion. Left subclavian tunneled port CVC tip mid SVC. No acute osseous findings. IMPRESSION: 1. Right apical pneumothorax measuring up to 1.1 cm. 2. COPD. 3. Stable consolidation in the perihilar right lower lobe. Dictated by: Dictated on workstation # [id number]
--- NOTE | 2018-03-27 17:13 | CONSULTATION REPORT ---
DATE OF SERVICE: 03/27/2018 REFERRING PHYSICIAN: Latisha Beard MD. The patient is admitted to room 423. A 77-year-old male admitted to the hospital with increasing cough, upper respiratory infection and shortness of breath. The patient was on outpatient antibiotics without improvement in his symptoms. He was evaluated by Dr. Valdez yesterday and a CT scan of the chest was done, which showed small right pneumothorax. Also, he had either atelectasis/infiltrates or a small nodule and was admitted to the hospital for further management. 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 He completed combined chemoradiation in 03/2015. Following this, he developed a left lower lobe hypermetabolic nodule and underwent sterotactic radiation therapy in 01/2016, but had evidence of progressive disease by 05/2016. He was treated with PDL1 inhibitor for 10 courses and developed progressive disease. He underwent chemotherapy with gemcitabine for 3 cycles and had a good response, but the treatments were stopped because of other complications. He developed a DVT associated in the subclavian vein associated with the port and was treated with anticoagulation. He has been on surveillance in 01/2017 without evidence of progressive disease. PAST MEDICAL HISTORY: Significant for hypertension, more than 20 years. History of pneumonias in the past. PAST SURGICAL HISTORY: Include a left wrist fracture in 1955, which required surgical fixation. Left inguinal hernia repair in 1978, tonsillectomy and adenoidectomy in 1947 and an early stage melanoma removed from his left forearm in 2012, also had a laparoscopic cholecystectomy in 2014. SOCIAL HISTORY: The patient is and lives in [place], [place]. He has 2 children, who lives in [place], [place] and a daughter who lives in [place]. 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 He has an extensive history of tobacco use and quit in 2012. He has used alcohol moderately throughout his life with no history of binge drinking. No history of recreational drug use. FAMILY HISTORY: Significant for his mother who was diagnosed with Hodgkin's disease in her 40s. His father may have had a malignancy, but the patient does not know the details. No other malignancies in the family. PHYSICAL EXAMINATION: GENERAL: Today showed elderly male, weak appearing, awake and oriented in mild respiratory distress. VITAL SIGNS: His temperature was 99.6, pulse rate of 97, respirations 20, blood pressure 110/61 with oxygen saturation of 96% on 1.5 liters of oxygen by nasal cannula. HEENT: Normocephalic. Extraocular muscles intact. Conjunctivae pink. Oral mucosa moist with coated tongue. NECK: Supple, with no JVD. No cervical, supraclavicular or axillary lymphadenopathy palpable. CHEST: Symmetrical. LUNGS: With diminished breath sounds bilaterally without any wheezes or rales. CARDIOVASCULAR: Regular rate and rhythm without murmurs or gallops. ABDOMEN: Soft, nontender with no hepatosplenomegaly or masses palpable. EXTREMITIES: Showed no edema. NEUROLOGIC: Grossly intact without focal motor deficits. LABORATORY DATA: CBC done yesterday showed WBC 7.9, hemoglobin 13.9 and platelet count 228,000 with neutrophil count 6.4 and lymphocyte count 0.9. Chemistry panel showed normal electrolytes. BUN was 17 and creatinine 0.78 with GFR more than 60 mL per minute. Nonfasting glucose was 132. Liver function studies were within normal limits. CT angiogram of the chest done yesterday showed a small right basilar pneumothorax when compared to the previous CT from 12/25/2017. Significant bullous emphysema noted. There is continued infiltrate/atelectasis and pleural fluid in the right base, which is unchanged from before. Slight increase in soft tissue in the AP window as well as left infrahilar region. A spiculated density in the posterior lateral left lower lobe indeterminate between infiltrate versus neoplasm. Followup was recommended. IMPRESSION: 1. Upper respiratory infection with exacerbation of chronic obstructive pulmonary disease. 2. Small spontaneous right basilar pneumothorax, probably related to a ruptured bleb. 3. History of squamous cell carcinoma of the lung with treatment as mentioned in the history of present illness. He has been on surveillance for more than a year without evidence of progression. The recent change noted on the CT angiogram of the chest is worrisome for recurrence. RECOMMENDATIONS: 1. Continue management of the upper respiratory infection/exacerbation of COPD as you are doing. 2. Monitor the pneumothorax serially. 3. Made discharged from the hospital when stable from a pulmonary standpoint. 4. Once his respiratory symptoms have resolved, I will obtain a PET CT scan to evaluate the left lower lobe nodule and a slightly prominent soft tissue density in the AP window. 5. I will see him back at the [facility] a few days later to review the results and discuss about further options. Thank you for allowing me to participate in this patient's care. I will follow the patient with you and make appropriate recommendations. Job ID: [id number] DocumentID: [id number] Dictated Date: 03/27/2018 16:29:02 Group Exercise Instructor Date: 03/27/2018 17:12:37 Dictated By: JOSIAH GARCIA MD MTDD
[2018-03-27] MEDS: risperiDONE 0.25 MG (RisperDAL) TAB PO SCH (18:30)
[2018-03-27 20:00] VITALS: BP 99/62
[2018-03-28] VITALS: BP 103/67
[2018-03-28] MEDS: PIPERACILLIN SODIUM/TAZOBACTAM 4.5 GM in NS (IVPB) 100 ML IV SCH ×4 (00:12→23:16)
[2018-03-28 04:00] VITALS: BP 107/69
[2018-03-28 06:12] LABS: HEMOGLOBIN 11.6 G/DL (13.3-17.7); MEAN PLATELET VOLUME 9.3 FL (7.4-10.4); RED CELL DISTRIBUTION WIDTH 14.5 % (10.0-14.5); WHITE BLOOD COUNT 5.9 10^3/uL (4.3-11.0)
[2018-03-28 06:29] LABS: ALANINE AMINOTRANSFERASE 11 U/L (0-55); ALBUMIN 3.2 GM/DL (3.2-4.5); ALKALINE PHOSPHATASE 80 U/L (40-136); BILIRUBIN,TOTAL 0.5 MG/DL (0.1-1.0); BUN/CREATININE RATIO 19; CALCIUM 8.5 MG/DL (8.5-10.1); CARBON DIOXIDE 28 MMOL/L (21-32); CHLORIDE 107 MMOL/L (98-107); CREATININE SERUM 0.68 MG/DL (0.60-1.30); GFR ESTIMATED > 60; GLUCOSE 88 MG/DL (70-105); POTASSIUM 4.1 MMOL/L (3.6-5.0); SODIUM 142 MMOL/L (135-145); TOTAL PROTEIN 5.6 GM/DL (6.4-8.2)
--- NOTE | 2018-03-28 06:57 | Pulmonary Progress Note ---
Subjective Time Seen by a Provider: 07:55 Subjective/Events-last exam PT has no current complaints. SOB is stable. Sepsis Event Evaluation Height, Weight, BMI Height: 5'11" Weight: 158lbs. 5.0oz. 71.328497qn; 28.12 BMI Method:Stated Exam Exam Vital Signs Date Time Temp Pulse Resp B/P (MAP) Pulse Ox O2 Delivery O2 Flow Rate FiO2 03/28/18 04:00 97.2 84 18 107/69 (82) 97 Nasal Cannula 1.50 03/28/18 00:00 97.5 85 18 103/67 (79) 99 Nasal Cannula 1.50 03/27/18 20:00 Nasal Cannula 1.50 03/27/18 20:00 98.2 87 18 99/62 (74) 98 Nasal Cannula 1.50 03/27/18 16:00 98.6 102 16 110/64 (79) 98 Nasal Cannula 1.50 03/27/18 13:00 99 03/27/18 12:50 99.6 97 20 110/61 (77) 96 Nasal Cannula 1.50 03/27/18 08:45 98.6 85 20 124/71 (88) 95 Nasal Cannula 1.50 03/27/18 08:00 Nasal Cannula 1.50 03/27/18 07:01 99 Nasal Cannula 1.50 03/27/18 07:00 79 I & O 03/28/18 07:00 Intake Total 1526 ml Output Total 1 ml Balance 1525 ml Height & Weight Height: 5'11" Weight: 158lbs. 5.0oz. 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
[2018-03-28] MEDS ORDERED: RT-ALBUTEROL SULF 2.5 MG/3 ML PRE-MIX VIAL INH PRN (07:00)
[2018-03-28 07:56] VITALS: BP 101/70
--- NOTE | 2018-03-28 08:37 | Progress Note ---
Subjective Date Seen by a Provider: Mar 28, 2018 Time Seen by a Provider: 08:30 Subjective/Events-last exam PT REPORTS THAT HE IS FEELING A LITTLE BIT BETTER TODAY. HE STATES THAT HE HAD A GOOD NIGHT LAST NIGHT, HIS NURSE NOTES THAT HE WAS IRRITABLE THIS MORNING AND HAD SOME ISSUES WITH REMEMBERING THINGS HE HAD ASKED HER ABOUT. Review of Systems General: Fatigue Pulmonary: Dyspnea Cardiovascular: No: Chest Pain Gastrointestinal: No: Nausea, Abdominal Pain Genitourinary: Frequency Neurological: Weakness, Confusion (INTERMITTENT) Objective Exam Last Set of Vital Signs Vital Signs Date Time Temp Pulse Resp B/P (MAP) Pulse Ox O2 Delivery O2 Flow Rate FiO2 03/28/18 07:56 98.3 95 18 101/70 (80) 97 Nasal Cannula 1.50 Capillary Refill : Less Than 3 Seconds I&O Intake and Output 03/28/18 00:00 Intake Total 1576 ml Output Total 1 ml Balance 1575 ml Intake Oral 1376 ml IV Total 200 ml Output Urine Total 1 ml # Voids 6 # Bowel Movements 5 General: Alert, Cooperative, No Acute Distress HEENT: Atraumatic Neck: Supple Lungs: Other (DECREASED AIRMOVEMENT THROUGHOUT) Heart: Regular Rate Abdomen: Normal Bowel Sounds, Soft Neuro: Normal Gait Psych/Mental Status: Mental Status NL, Mood NL Results Lab Laboratory Tests 03/28/18 06:02: White Blood Count 5.9, Red Blood Count 3.72L, Hemoglobin 11.6L, Hematocrit 36L, Mean Corpuscular Volume 98, Mean Corpuscular Hemoglobin 31, Mean Corpuscular Hemoglobin Concent 32, Red Cell Distribution Width 14.5, Platelet Count 200, Mean Platelet Volume 9.3, Sodium Level 142, Potassium Level 4.1, Chloride Level 107, Carbon Dioxide Level 28, Anion Gap 7, Blood Urea Nitrogen 13, Creatinine 0.68, Estimat Glomerular Filtration Rate > 60, BUN/Creatinine Ratio 19, Glucose Level 88, Calcium Level 8.5, Corrected Calcium 9.1, Total Bilirubin 0.5, Aspartate Amino Transf (AST/SGOT) 14, Alanine Aminotransferase (ALT/SGPT) 11, Alkaline Phosphatase 80, Total Protein 5.6L, Albumin 3.2 Assessment/Plan Assessment/Plan Assess & Plan/Chief Complaint ACUTE PNEUMOTHORAX LUNG CANCER PNEUMONIA HYPERTENSION ATRIAL FIBRILLATION HYPOTHYROIDISM ESOPHAGEAL REFLUX UNDERWEIGHT ACUTE PNEUMOTHORAX WITH LUNG CANCER AND PNEUMONIA - - DISCUSSED WITH DR. GARCIA AND DR. NIX - WILL CONTINUE WITH IV ANTIBIOTICS, MONITOR SERIAL CHEST XRAYS TO SEE IF THE PNEUMOTHORAX RESOLVES. CONTINUE WITH OXYGEN AND SUPPORTIVE CARE AT THIS TIME. DR. GARCIA WILL FOLLOW THE CHEST CT SCAN OUTPATIENT. REPEAT CHEST XRAY IS SHOWING STABILITY HYPERTENSION AND ATRIAL FIBRILLATION - CONTINUE WITH ELIQUIS AND METOPROLOL FOR RATE CONTROL. HYPOTHYROIDISM - RESTARTED HOME REGIMEN ESOPHAGEAL REFLUX - RESTART OMEPRAZOLE UNDERWEIGHT - INCREASE CALORIC INTAKE Clinical Quality Measures Admission Status Admission Dx CT NAME: DELROY WINCHESTER JR [facility] REC#: [id number] PT STATUS: REG CLI : 1940 PHYSICIAN: ROSALINDA MAURICIO APRN ADMIT DATE: 03/26/18/RAD Signed Date of Exam: 03/26/18 CT ANGIO CHEST W PROCEDURE: CT angiography of the chest with contrast. TECHNIQUE: Multiple contiguous axial images were obtained through the chest after uneventful bolus administration of intravenous contrast. 2D reconstructed CTA MIP acquisitions were also performed. INDICATION: History of lung carcinoma. Patient has COPD, cough and severe shortness of air on exertion. COMPARISON: Comparison is made with prior CT chest from 12/25/2017. FINDINGS: Evaluation of the pulmonary arterial system is without evidence of thromboembolism. No definite filling defects are seen within central, lobar or segmental branches. The thoracic aorta is normal caliber. No dissection is seen. No pericardial or pleural fluid is identified. No axillary lymphadenopathy is seen. There is abnormal soft tissue in the AP window which appears to be increased since prior exam measuring approximately 3.0 x 1.4 cm. There is also some increase in prominence of soft tissue in the left infrahilar region measuring 2.7 x 2.7 cm. This area measured approximately 2.0 x 2.5 cm on prior. Right hilum again demonstrates regions of soft tissue which has the appearance of atelectasis or pneumonia. There is persistent parenchymal consolidation in the right lower lobe with some air bronchograms. There is also continued small right pleural effusion. There is a right basilar pneumothorax which appears new since prior CT. An irregular density has developed in the left lower lobe posterior laterally measuring 2.2 cm. This may represent an area of infiltrate however a mass cannot be entirely excluded. Severe emphysematous changes are seen in both lungs. Upper abdomen is unremarkable. IMPRESSION: 1. Development of a small right basilar pneumothorax when compared with prior CT from 12/25/2017. 2. Continued infiltrate/atelectasis and pleural fluid in the right base, similar to prior CT. There has been some increase in soft tissue in the AP window as well as left infrahilar region when compared with prior CT. Enlarging neoplasm cannot be excluded. There is also spiculated density that is new in the posterior lateral left lower lobe, indeterminate between infiltrate versus neoplasm. Continued close CT chest followup is recommended to confirm stability or resolution. Dictated by: Dictated on workstation # [id number] Dict: 03/26/18 1645 Trans: 03/26/18 1904 Interpreted by: RAFAEL HITCHCOCK MD Electronically signed by: RAFAEL HITCHCOCK MD 03/26/18 1904 DVT/VTE Risk/Contraindication: Risk Factor Score Per Nursin RFS Level Per Nursing on Admit: 4+=Very High LUCIA MOLINA MD Mar 28, 2018 08:37
[2018-03-28] MEDS ORDERED: methylPREDNISolone 40 MG/ML (Solu-MEDROL) VIAL IV NR (08:45)
[2018-03-28] MEDS: LEVOTHYROXINE 75 MCG (LEVOTHROID) TABLET PO SCH (09:34)
[2018-03-28] MEDS: PANTOPRAZOLE 40 MG (PROTONIX) TAB PO SCH (09:34)
[2018-03-28] MEDS: guaiFENesin (MUCINEX) 600 MG TAB PO SCH ×2 (09:34→20:28)
[2018-03-28] MEDS: APIXABAN 5 MG (ELIQUIS) TABLET PO SCH ×2 (09:34→20:28)
--- NOTE | 2018-03-28 10:34 | Diagnostic Imaging Report ---
INDICATION: Followup pneumonia. TIME OF EXAMINATION: 10:10 a.m. COMPARISON: Correlation is made with prior study from 03/27/2018. FINDINGS: A left chest wall port has tip overlying the SVC. The right apical pneumothorax appears stable. The density in the right infrahilar location may be slightly improved. There are marked emphysematous changes in both lungs. No effusion is seen. IMPRESSION: Small right apical pneumothorax. Right perihilar density does appear slightly improved when compared with examination one day earlier. Dictated by: Dictated on workstation # [id number]
[2018-03-28] MEDS: RT-ALBUTEROL/IPRATROPIUM 3 ML (DUONEB) VIAL INH SCH ×3 (11:28→20:30)
[2018-03-28] MEDS: RT-ADVAIR HFA 115/21 MCG PER PUFF IH SCH ×2 (11:29→20:30)
[2018-03-28 12:17] VITALS: BP 106/62
--- NOTE | 2018-03-28 14:15 | NUR ---
Pastoral care Visit.
[2018-03-28 15:35] VITALS: BP 97/56
[2018-03-28 20:00] VITALS: BP 144/61
[2018-03-28] MEDS: risperiDONE 0.25 MG (RisperDAL) TAB PO SCH (20:28)
[2018-03-28] MEDS ORDERED: LATANOPROST 0.005% (XALATAN) OPHTH SOLN 2.5 ML OU SCH (21:00)
[2018-03-29] VITALS: BP 102/58
[2018-03-29 04:09] VITALS: BP 101/74
[2018-03-29] MEDS: LEVOTHYROXINE 75 MCG (LEVOTHROID) TABLET PO SCH (05:28)
[2018-03-29 05:42] LABS: HEMOGLOBIN 11.9 G/DL (13.3-17.7); RED CELL DISTRIBUTION WIDTH 14.4 % (10.0-14.5); WHITE BLOOD COUNT 7.5 10^3/uL (4.3-11.0)
[2018-03-29 05:59] LABS: ALANINE AMINOTRANSFERASE 18 U/L (0-55); ALBUMIN 3.5 GM/DL (3.2-4.5); ALKALINE PHOSPHATASE 77 U/L (40-136); BILIRUBIN,TOTAL 0.4 MG/DL (0.1-1.0); BUN/CREATININE RATIO 18; CALCIUM 8.8 MG/DL (8.5-10.1); CARBON DIOXIDE 26 MMOL/L (21-32); CHLORIDE 105 MMOL/L (98-107); CREATININE SERUM 0.72 MG/DL (0.60-1.30); GFR ESTIMATED > 60; GLUCOSE 107 MG/DL (70-105); POTASSIUM 3.7 MMOL/L (3.6-5.0); SODIUM 141 MMOL/L (135-145); TOTAL PROTEIN 5.8 GM/DL (6.4-8.2)
[2018-03-29] MEDS: RT-ALBUTEROL/IPRATROPIUM 3 ML (DUONEB) VIAL INH SCH ×2 (06:54→08:13)
[2018-03-29] MEDS: RT-ADVAIR HFA 115/21 MCG PER PUFF IH SCH (07:02)
[2018-03-29 08:00] VITALS: BP 111/71
--- NOTE | 2018-03-29 08:57 | Pulmonary Progress Note ---
Sepsis Event Evaluation Height, Weight, BMI Height: 5'11" Weight: 158lbs. 5.0oz. 71.246865lg; 28.12 BMI Method:Stated Exam Exam Vital Signs Date Time Temp Pulse Resp B/P (MAP) Pulse Ox O2 Delivery O2 Flow Rate FiO2 03/29/18 07:02 93 Room Air 03/29/18 06:55 92 Room Air 03/29/18 06:55 90 92 21 03/29/18 04:09 98.4 102 22 101/74 (83) 95 Nasal Cannula 2.00 03/29/18 00:00 98.0 102 22 102/58 (73) 94 Nasal Cannula 2.00 03/28/18 20:38 Nasal Cannula 2.00 03/28/18 20:33 95 Nasal Cannula 2.00 03/28/18 20:00 Nasal Cannula 1.50 03/28/18 20:00 98.4 104 16 144/61 (88) 95 Nasal Cannula 1.50 03/28/18 15:35 97.9 118 20 97/56 (70) 94 Nasal Cannula 1.50 03/28/18 14:54 93 Nasal Cannula 2.00 03/28/18 12:17 98.8 102 18 106/62 (77) 95 Nasal Cannula 1.50 03/28/18 11:29 92 Nasal Cannula 2.00 I & O 03/29/18 07:00 Intake Total 1310 ml Balance 1310 ml Height & Weight Height: 5'11" Weight: 158lbs. 5.0oz. 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
[2018-03-29] MEDS: APIXABAN 5 MG (ELIQUIS) TABLET PO SCH (09:11)
[2018-03-29] MEDS: guaiFENesin (MUCINEX) 600 MG TAB PO SCH (09:11)
[2018-03-29] MEDS: PANTOPRAZOLE 40 MG (PROTONIX) TAB PO SCH (09:11)
[2018-03-29] MEDS: PIPERACILLIN SODIUM/TAZOBACTAM 4.5 GM in NS (IVPB) 100 ML IV SCH (09:11)
--- NOTE | 2018-03-29 10:28 | Diagnostic Imaging Report ---
EXAMINATION: Portable erect AP chest obtained at 920h. INDICATION: Pneumothorax FINDINGS: The prior exam of 03/28/2018 noted a small apical pneumothorax on the right. By my measurement the distance between the bony thorax and the lung edge was 13.2 MM. On this study the distance is 11.7 MM. The overall appearance of the chest is otherwise stable. There is chronic pulmonary disease consistent with COPD. The heart size is within normal limits. The mediastinum is not widened. The osseous structures are intact. The left-sided Port-A-Cath seen on the previous exam is stable. IMPRESSION: The appearance of the chest has improved since the prior exam as the small apical pneumothorax on the right has decreased somewhat. A followup exam would be recommended for continued evaluation. Dictated by: Dictated on workstation # [id number]
--- NOTE | 2018-03-29 11:57 | Discharge Summary ---
Diagnosis/Chief Complaint Date of Admission Mar 27, 2018 at 09:07 Date of Discharge Discharge Date: Mar 29, 2018 Discharge Time: 11:00 Admission Diagnosis Admission Diagnosis ACUTE PNEUMOTHORAX LUNG CANCER PNEUMONIA HYPERTENSION ATRIAL FIBRILLATION HYPOTHYROIDISM ESOPHAGEAL REFLUX UNDERWEIGHT Discharge Diagnosis ACUTE PNEUMOTHORAX LUNG CANCER PNEUMONIA HYPERTENSION ATRIAL FIBRILLATION HYPOTHYROIDISM ESOPHAGEAL REFLUX UNDERWEIGHT Reason Hospital Visit This 77-year-old gentleman presents to the emergency room as referred by Dr. Valdez due to a small pneumothorax in the right lung. He had a CT angiogram of the chest performed today as an outpatient. Patient was being evaluated by Dr. Valdez in anticipation of bronchoscopy. CT was performed because of tachycardia and dyspnea. He has a history of lung cancer that is presently stable per their report. He has had increasing shortness of breath and tachycardia recently. He denies chest pain or fever. Dr. Valdez requested he come through the ER to ensure stability before he is admitted for observation. He normally uses oxygen at 2 L/m at home. He is stable on this flow rate in the ER. In particular, patient complains of dyspnea and fatigue with exertion. Patient is anticoagulated on Eliquis. We are uncertain of the reasons at this time. Discharge Summary Consultations DR. BOYD GARCIA Discharge Physical Examination Allergies: Coded Allergies: No Known Drug Allergies (Verified , 12/09/14) Vitals & I&Os General Appearance: Alert, Oriented X3, Cooperative, No Acute Distress HEENT: Atraumatic, Mucous Memb Moist/Spivey Respiratory: Other (DECREASED AIR MOVEMENT TRHOUGHOUT) Cardiovascular: Regular Rate Abdominal: Normal Bowel Sounds, Soft Extremities: No Clubbing Skin: No Rashes Neuro: Normal Speech (WITH HOARSE VOICE) Psych/Mental Status: Mental Status NL, Mood NL Hospital Course Was the Problem List Reviewed?: Yes ACUTE PNEUMOTHORAX LUNG CANCER PNEUMONIA HYPERTENSION ATRIAL FIBRILLATION HYPOTHYROIDISM ESOPHAGEAL REFLUX UNDERWEIGHT ACUTE PNEUMOTHORAX WITH LUNG CANCER AND PNEUMONIA - - DISCUSSED WITH DR. GARCIA AND DR. VALDEZ - WILL CONTINUE WITH IV ANTIBIOTICS, MONITOR SERIAL CHEST XRAYS TO SEE IF THE PNEUMOTHORAX RESOLVES. CONTINUE WITH OXYGEN AND SUPPORTIVE CARE AT THIS TIME. DR. GARCIA WILL FOLLOW THE CHEST CT SCAN OUTPATIENT. HYPERTENSION AND ATRIAL FIBRILLATION - CONTINUE WITH ELIQUIS AND METOPROLOL FOR RATE CONTROL. HYPOTHYROIDISM - RESTAT HOME REGIMEN ESOPHAGEAL REFLUX - RESTART OMEPRAZOLE UNDERWEIGHT - INCREASE CALORIC INTAKE Pending Labs Discharge Condition at discharge IMPROVED SYMPTOMS. Instructions to patient/family Please see electronic discharge instructions given to patient. Discharge Medications Reviewed and agree with Discharge Medication list on patient's Discharge Instruction sheet Clinical Quality Measures DVT/VTE Risk/Contraindication: Risk Factor Score Per Nursin RFS Level Per Nursing on Admit: 4+=Very High LUCIA MOLINA MD Mar 29, 2018 11:57
[2018-03-29 12:00] VITALS: BP 110/71
[2018-03-29] MEDS ORDERED: LACT1CAP87 PO (12:01)
[2018-03-29] MEDS ORDERED: AMOX-358 PO (12:01)
[2018-03-29] MEDS ORDERED: RT-ALBUINH INH (12:01)
[2018-03-29] MEDS ORDERED: FLUT12AE4 IH (12:01)
--- NOTE | 2018-03-29 12:03 | Discharge Inst-Complex ---
PDI Med Rec & Follow Up Appt. New Medications: Albuterol Sulfate (Ventolin Hfa) 1 Puff Puff 2 PUFF INH Q6H for 30 Days, #1 INHALER 1 PUFF = 90 MCG Amoxicillin/Potassium Clav (Augmentin 875-125 Tablet) 1 Each Tablet 1 EACH PO BID, #15 TAB Lactobacillus Acidophilus (Acidophilus Lactobacilli) 1 Each Capsule 1 EACH PO TID, #30 CAP Fluticasone/Salmeterol (Advair Hfa 115-21 Mcg Inhaler) 12 Gm Hfa.aer.ad 2 PUFF IH BID@,20, #1 DISK 4 Refills Continued Medications: Apixaban (Eliquis) 5 Mg Tablet 5 MG PO BID, TAB Guaifenesin (Mucinex) 1,200 Mg Tab.er.12h 1200 MG PO BID, TAB Latanoprost (Latanoprost) 2.5 Ml Drops 1 DROP OU HS, EA Levothyroxine Sodium (Levoxyl) 75 Mcg Tablet 75 MCG PO DAILY, TAB Metoprolol Succinate (Metoprolol Succinate) 25 Mg Tab.er.24h 12.5 MG PO DAILY, TAB TAKES 1/2 (25MG) TABLET Mv,Minerals/FA/Lycopene/Ginkgo (One Daily Men's 50+ Tablet) 1 Each Tablet 1 TAB PO DAILY, TAB Nystatin (Nystatin) 100,000 Unit/1 Ml Oral.susp 5 ML PO QID, EA 10 DAY SUPPLY FILLED 03-18-18 Omeprazole (Omeprazole) 40 Mg Capsule.dr 40 MG PO DAILY, CAP Prescription: Transmitted to Pharmacy Activity, Diet and PDI Resume Normal Activity: Yes Discharge Diet: Regular Diet Diet After 24 Hours: Clear Liquid if Nauseous Driving Instructions: No Driving/Refer to Symptoms to Reoprt to : Appetite Changes, Fever Over 101 Degrees F, Pain/ Pressure in Chest, Nausea/Vomiting For Problems or Questions: Contact Your Physician, Go to Emergency Room Infection Signs and Symptoms: Temperature Above 101 F LUCIA MOLINA MD Mar 29, 2018 12:03
[2018-03-29 13:00] VITALS: BP 111/71
--- NOTE | 2018-03-29 13:00 | NUR ---
DELROY WINCHESTER JR demonstrates understanding of discharge instructions and accurately returns instructions upon questioning. Copy of Post-Discharge Instructions given to PT AND . DELROY WINCHESTER JR IS able to manage continuing needs after discharge. Patients belongings returned to PT. Patient discharged from [facility] on 03/29/18 at 13:00. DELROY WINCHESTER JR left floor via W/C, accompanied by STAFF AND FAMILY PER AUTO.
[2018-03-30] MEDS ORDERED: RT-ALBUTEROL/IPRATROPIUM 3 ML (DUONEB) VIAL INH SCH (21:00)
== END 2018-03-29 13:00 | disposition home or self-care (01) | DRG 199 ==
LOC: EDUNIT# 19:19 → ER 19:20 → UNDOADMOB 20:50 → 4TH 20:50 → OBSVTOIN 03-27 09:07 → INTOOBSV 03-27 09:07 → EDPENDDISTM 03-29 11:00 → UNDODISIN 03-29 13:00
PROVIDERS: ADMIT Family Medicine; ATTEND Family Medicine
DX: J93.83 Other pneumothorax (principal); J43.9 Emphysema, unspecified; J18.9 Pneumonia, unspecified organism; J98.11 Atelectasis; F23 Brief psychotic disorder; J06.9 Acute upper respiratory infection, unspecified; R91.1 Solitary pulmonary nodule; R09.02 Hypoxemia; I10 Essential (primary) hypertension; I48.91 Unspecified atrial fibrillation; H91.90 Unspecified hearing loss, unspecified ear; E03.9 Hypothyroidism, unspecified; K21.9 Gastro-esophageal reflux disease without esophagitis; R63.6 Underweight; Z85.820 Personal history of malignant melanoma of skin; Z79.01 Long term (current) use of anticoagulants; Z99.81 Dependence on supplemental oxygen; Z85.118 Personal history of other malignant neoplasm of bronchus and lung; Z87.891 Personal history of nicotine dependence
CPT/HCPCS: 36415; 71045; 71046; 71275; 80053; 82565; 84520; 85025; 85027; 94640; 94760; 96360; G0378

== ENCOUNTER → 2018-03-26 | Outpatient (CLI) | payer MEDICARE, OTHER ==
[~2018-03-26] MED LIST changes: +APIX5TAB PO; +GUAI120013 PO; +IOHEXOL 350 MG/ML 150 ML (OMNIPAQUE 350) VIAL IV ONE; +LATA2.5D5 OU; +LEVO75TA59 PO; +METO-387 PO; +MV,M1TAB4 PO; +NS 100 ML (IVPB) BAG IV ONE; +NYST1000 PO; +OMEP40CA36 PO; +RECEIVED CONTRAST (Hold Metformin) IV SCH
[2018-03-26 14:55] LABS: BUN/CREATININE RATIO 25; CREATININE SERUM 0.71 MG/DL (0.60-1.30); GFR ESTIMATED > 60
--- NOTE | 2018-03-26 17:08 | Diagnostic Imaging Report ---
PROCEDURE: CT angiography of the chest with contrast. TECHNIQUE: Multiple contiguous axial images were obtained through the chest after uneventful bolus administration of intravenous contrast. 2D reconstructed CTA MIP acquisitions were also performed. INDICATION: History of lung carcinoma. Patient has COPD, cough and severe shortness of air on exertion. COMPARISON: Comparison is made with prior CT chest from 12/25/2017. FINDINGS: Evaluation of the pulmonary arterial system is without evidence of thromboembolism. No definite filling defects are seen within central, lobar or segmental branches. The thoracic aorta is normal caliber. No dissection is seen. No pericardial or pleural fluid is identified. No axillary lymphadenopathy is seen. There is abnormal soft tissue in the AP window which appears to be increased since prior exam measuring approximately 3.0 x 1.4 cm. There is also some increase in prominence of soft tissue in the left infrahilar region measuring 2.7 x 2.7 cm. This area measured approximately 2.0 x 2.5 cm on prior. Right hilum again demonstrates regions of soft tissue which has the appearance of atelectasis or pneumonia. There is persistent parenchymal consolidation in the right lower lobe with some air bronchograms. There is also continued small right pleural effusion. There is a right basilar pneumothorax which appears new since prior CT. An irregular density has developed in the left lower lobe posterior laterally measuring 2.2 cm. This may represent an area of infiltrate however a mass cannot be entirely excluded. Severe emphysematous changes are seen in both lungs. Upper abdomen is unremarkable. IMPRESSION: 1. Development of a small right basilar pneumothorax when compared with prior CT from 12/25/2017. 2. Continued infiltrate/atelectasis and pleural fluid in the right base, similar to prior CT. There has been some increase in soft tissue in the AP window as well as left infrahilar region when compared with prior CT. Enlarging neoplasm cannot be excluded. There is also spiculated density that is new in the posterior lateral left lower lobe, indeterminate between infiltrate versus neoplasm. Continued close CT chest followup is recommended to confirm stability or resolution. Dictated by: Dictated on workstation # [id number]
== END ==
LOC: RAD 14:14
PROVIDERS: ATTEND Nurse Practitioner Family
DX: J44.9 Chronic obstructive pulmonary disease, unspecified (principal); J93.9 Pneumothorax, unspecified; J98.4 Other disorders of lung; R91.8 Other nonspecific abnormal finding of lung field; Z85.118 Personal history of other malignant neoplasm of bronchus and lung
CPT/HCPCS: 36415; 71275; 82565; 84520

== ENCOUNTER 2018-05-09 13:42 | Emergency (ER) | payer MEDICARE, OTHER ==
[~2018-05-09] VITALS: Ht 180.3 cm; Wt 68.5 kg
[~2018-05-09 13:42] MED LIST changes: +AMOX-358 PO; +APIX5TAB PO; +FLUT12AE4 IH; +GUAI120013 PO; +LACT1CAP87 PO; +LATA2.5D5 OU; +LEVO75TA59 PO; +METO-387 PO; +MV,M1TAB4 PO; +NYST1000 PO; +OMEP40CA36 PO; +RT-ALBUINH INH
[2018-05-09] MEDS ORDERED: RT-ALBUTEROL/IPRATROPIUM 3 ML (DUONEB) VIAL INH ONE (14:00)
--- NOTE | 2018-05-09 14:10 | ED Respiratory ---
General Stated Complaint: SOB Source: patient, family Exam Limitations: clinical condition History of Present Illness Date Seen by Provider: May 09, 2018 Time Seen by Provider: 13:55 Initial Comments 77-year-old male with known lung cancer presents with increasing shortness of breath over the last several days. He was hospitalized from March 27 until the for apparent atelectasis or pneumonia. He has not followed up since then. His reports his shortness of breath has worsened. He remains somewhat confused and has been so since his hospitalization referenced above. She does not report sputum production or hemoptysis. His symptoms are clearly made worse by exertion. He has a PowerPort but apparently has not been receiving chemotherapy recently. Allergies and Home Medications Allergies Coded Allergies: No Known Drug Allergies (Verified , 12/09/14) Home Medications Albuterol Sulfate 1 Puff Puff, 2 PUFF INH Q6H 1 PUFF = 90 MCG Prescribed by: LUCIA MOLINA on 03/29/18 1201 Amoxicillin/Potassium Clav 1 Each Tablet, 1 EACH PO BID Prescribed by: LUCIA MOLINA on 03/29/18 1201 Apixaban 5 Mg Tablet, 5 MG PO BID, (Reported) Fluticasone/Salmeterol 12 Gm Hfa.aer.ad, 2 PUFF IH BID@08,20 Prescribed by: LUCIA MOLINA on 03/29/18 1201 Guaifenesin 1,200 Mg Tab.er.12h, 1,200 MG PO BID, (Reported) Lactobacillus Acidophilus 1 Each Capsule, 1 EACH PO TID Prescribed by: LUCIA MOLINA on 03/29/18 1201 Latanoprost 2.5 Ml Drops, 1 DROP OU HS, (Reported) Levothyroxine Sodium 75 Mcg Tablet, 75 MCG PO DAILY, (Reported) Metoprolol Succinate 25 Mg Tab.er.24h, 12.5 MG PO DAILY, (Reported) TAKES 1/2 (25MG) TABLET Mv,Minerals/FA/Lycopene/Ginkgo 1 Each Tablet, 1 TAB PO DAILY, (Reported) Nystatin 100,000 Unit/1 Ml Oral.susp, 5 ML PO QID, (Reported) 10 DAY SUPPLY FILLED 03-18-18 Omeprazole 40 Mg Capsule.dr, 40 MG PO DAILY, (Reported) Patient Home Medication List Home Medication List Reviewed: Yes Review of Systems Review of Systems Constitutional: malaise, weakness, weight loss EENTM: see HPI, other (edentulous) Respiratory: see HPI, cough, dyspnea on exertion, short of breath Cardiovascular: no symptoms reported Gastrointestinal: No abdominal pain, No diarrhea, No jaundice; loss of appetite ; No melena, No nausea, No vomiting Genitourinary: no symptoms reported Musculoskeletal: no symptoms reported Skin: no symptoms reported Psychiatric/Neurological: No Symptoms Reported Hematologic/Lymphatic: No Symptoms Reported Immunological/Allergic: no symptoms reported Past Ukbcrro-Oghgpj-Ngvhvp Hx Past Med/Social Hx: Reviewed Nursing Past Med/Soc Hx Patient Social History Alcohol Use: Past History Type Used: Cigarettes, Smokeless Tobacco Former Smoker, Quit: Mar 12, 2012 2nd Hand Smoke Exposure: No Recent Foreign Travel: No Contact w/Someone Who Travel: No Recent Hopitalizations: No Immunizations Up To Date Tetanus Booster (TDap): Less than 5yrs Date of Pneumonia Vaccine: Nov 30, 2011 Date of Influenza Vaccine: Dec 24, 2017 Seasonal Allergies Seasonal Allergies: No Past Medical History Surgeries: Yes (port) Abdominal, Adenoidectomy, Gallbladder, Tonsillectomy, Vasectomy Respiratory: Yes (lung cancer, chronic hypoxia) COPD Cardiac: Yes Hypertension, Irregular Heartbeat Neurological: No Reproductive Disorders: No Sexually Transmitted Disease: No HIV/AIDS: No Genitourinary: No Gastrointestinal: No Gall Bladder Disease Musculoskeletal: No Endocrine: Yes Hypothyroidsim HEENT: Yes Loss of Vision: Denies Hearing Impairment: Hard of Hearing Cancer: Yes Lung, Melanoma Psychosocial: No Integumentary: No Blood Disorders: No Adverse Reaction/Blood Tranf: No Family Medical History Cancer Physical Exam Vital Signs - First Documented 05/09/18 13:47 Temp 98.5 Pulse 108 Resp 16 B/P (MAP) 132/81 (98) Pulse Ox 98 O2 Delivery Nasal Cannula O2 Flow Rate 3.00 Capillary Refill : Height: 5'11" Weight: 158lbs. 5.0oz. 71.948269ya; 28.12 BMI Method:Stated General Appearance: WD/WN, no apparent distress, cachetic Eyes: Bilateral Eye Normal Inspection, Bilateral Eye PERRL, Bilateral Eye EOMI HEENT: PERRL/EOMI, normal ENT inspection (except dentures), TMs normal, pharynx normal, other (coarse to speech) Neck: non-tender, full range of motion, supple, normal inspection, carotid bruit Respiratory: decreased breath sounds, rhonchi (bilaterally), other (PowerPort and left upper chest) Cardiovascular: regular rate, rhythm, no edema, no gallop, no JVD, no murmur Gastrointestinal: normal bowel sounds, non tender, soft, no organomegaly Extremities: normal range of motion, non-tender, normal inspection, no pedal edema, no calf tenderness, normal capillary refill 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: 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 tested, no motor/sensory deficits, alert, normal mood/affect, oriented x 3 Skin: normal color, warm/dry Lymphatic: no adenopathy Focused Exam Lactate Level 05/09/18 13:59: Lactic Acid Level 1.67 Lactic Acid Level Laboratory Tests Test 05/09/18 13:59 Lactic Acid Level 1.67 MMOL/L (0.50-2.00) Progress/Results/Core Measures Suspected Sepsis SIRS Temperature: Pulse: Respiratory Rate: Laboratory Tests 05/09/18 13:59: White Blood Count 8.4 Blood Pressure / Mean: 05/09/18 13:59: Lactic Acid Level 1.67 Laboratory Tests 05/09/18 13:59: Creatinine 0.77, Platelet Count 292, Total Bilirubin 0.5 Results/Orders Lab Results Laboratory Tests Test 05/09/18 13:59 Range/Units White Blood Count 8.4 4.3-11.0 10^3/uL Red Blood Count 4.41 4.35-5.85 10^6/uL Hemoglobin 14.0 13.3-17.7 G/DL Hematocrit 43 40-54 % Mean Corpuscular Volume 98 80-99 FL Mean Corpuscular Hemoglobin 32 25-34 PG Mean Corpuscular Hemoglobin Concent 32 32-36 G/DL Red Cell Distribution Width 14.4 10.0-14.5 % Platelet Count 292 130-400 10^3/uL Mean Platelet Volume 10.0 7.4-10.4 FL Neutrophils (%) (Auto) 74 42-75 % Lymphocytes (%) (Auto) 16 12-44 % Monocytes (%) (Auto) 8 0-12 % Eosinophils (%) (Auto) 1 0-10 % Basophils (%) (Auto) 1 0-10 % Neutrophils # (Auto) 6.3 1.8-7.8 X 10^3 Lymphocytes # (Auto) 1.3 1.0-4.0 X 10^3 Monocytes # (Auto) 0.6 0.0-1.0 X 10^3 Eosinophils # (Auto) 0.1 0.0-0.3 10^3/uL Basophils # (Auto) 0.1 0.0-0.1 10^3/uL Sodium Level 141 135-145 MMOL/L Potassium Level 3.8 3.6-5.0 MMOL/L Chloride Level 100 98-107 MMOL/L Carbon Dioxide Level 19 L 21-32 MMOL/L Anion Gap 22 H 5-14 MMOL/L Blood Urea Nitrogen 15 7-18 MG/DL Creatinine 0.77 0.60-1.30 MG/DL Estimat Glomerular Filtration Rate > 60 BUN/Creatinine Ratio 19 Glucose Level 99 70-105 MG/DL Lactic Acid Level 1.67 0.50-2.00 MMOL/L Calcium Level 8.9 8.5-10.1 MG/DL Corrected Calcium 9.3 8.5-10.1 MG/DL Total Bilirubin 0.5 0.1-1.0 MG/DL Aspartate Amino Transf (AST/SGOT) 17 5-34 U/L Alanine Aminotransferase (ALT/SGPT) 16 0-55 U/L Alkaline Phosphatase 113 40-136 U/L Troponin T 17 H <=15 NG/L B-Type Natriuretic Peptide 1143.0 H <100.0 PG/ML Total Protein 6.7 6.4-8.2 GM/DL Albumin 3.5 3.2-4.5 GM/DL My Orders Orders - PALAK PARK MD Albuterol/Ipra Inhalation Soln (Duoneb I (05/09/18 14:00) Cbc With Automated Diff (05/09/18 14:00) Comprehensive Metabolic Panel (05/09/18 14:00) BNP (05/09/18 14:00) Blood Culture (05/09/18 14:00) Chest 1 View Ap/Pa Only (05/09/18 14:00) Ekg Tracing (05/09/18 14:00) O2 (05/09/18 14:00) Saline Lock/Iv-Start (05/09/18 14:00) Monitor-Rhythm Ecg Trace Only (05/09/18 14:00) Svn Small Volume Nebulizer (05/09/18 14:00) Lactic Acid Analyzer (05/09/18 14:00) Furosemide Injection (Lasix Injection) (05/09/18 15:45) Medications Given in ED Current Medications Medications Dose Ordered Sig/Jori Route Start Time Stop Time Status Last Admin Dose Admin Albuterol/ Ipratropium 3 ml ONCE ONCE INH 05/09/18 14:00 05/09/18 14:05 DC 05/09/18 14:16 3 ML Vital Signs/I&O 05/09/18 05/09/18 13:47 13:47 Temp 98.5 Pulse 108 Resp 16 B/P (MAP) 132/81 (98) Pulse Ox 98 96 O2 Delivery Nasal Cannula O2 Flow Rate 3.00 Capillary Refill : Progress Note : Time: 14:10 Progress Note We'll give breathing treatment and steroids pending workup. Discussed with patient and . They understand and agree with workup plans. 1535 Feeling better after RT. Elevated BNP noted. Will give Lasix and monitor. 1610 Pt prefers not to get IV lasix here and would rather have RX for home. He would like to go home and understands the need for close follow up and to return if sx worsen. Pt and understand the risks of this course and prefer it. ECG Initial ECG Impression Date: May 09, 2018 Initial ECG Impression Time: 14:53 Initial ECG Rate: 102 Initial ECG Rhythm: S.Tach Initial ECG Intervals: Normal Initial ECG Impression: Normal Comment no acute changes Diagnostic Imaging Diagonstic Imaging: Xray Plain Films/CT/US/NM/MRI: chest Comments EXAMINATION: Erect AP chest at 2:11 p.m. INDICATION: Shortness of breath. FINDINGS: The heart size is within normal limits and stable when compared to 04/11/2018. The abnormal density about the right hilum seen previously is again visualized and no different. The strands of atelectasis/scar formation in each lung base noted on the prior study are also unchanged. The right lung apex does seem more lucent than the left. This is probably related to bulla/bleb formation. There is no evidence for a pneumothorax, but if further evaluation for a pneumothorax is desired, then an expiration chest would be recommended. There is no evidence for failure, pneumonia, or for a pleural effusion. The mediastinum is not widened. The osseous structures are intact. The left-sided Port-A-Cath seen previously is unchanged in position. IMPRESSION: 1. The overall appearance of the chest has not changed significantly since the prior exam. The abnormal density about the right hilum seen previously is again evident and no different. 2. There is no clear evidence for a pneumothorax on the right. Recommendations as above. Dictated on workstation # [id number] Dict: 05/09/18 1446 Trans: 05/09/18 1458 [id number] Interpreted by: MARIO ALBERTO CARMONA MD Electronically signed by: Departure Impression Primary Impression: Lung cancer Qualified Codes: C34.32 - Malignant neoplasm of lower lobe, left bronchus or lung Additional Impressions: CHF (congestive heart failure) Qualified Codes: I50.9 - Heart failure, unspecified COPD (chronic obstructive pulmonary disease) Qualified Codes: J44.9 - Chronic obstructive pulmonary disease, unspecified Disposition: 01 HOME, SELF-CARE Condition: Improved Departure-Patient Inst. Decision time for Depature: 16:14 Referrals: LUCIA MOLINA MD (PCP/Family) Primary Care Physician 2 days, return to ER if symptoms worsen. Patient Instructions: CHF Scripts Ipratropium/Albuterol Sulfate (Iprat-Albut 0.5-3(2.5) mg/3 ml) 3 Ml Ampul.neb 3 ML IH Q4H PRN for SHORTNESS OF BREATH, #180 EACH Prov: PALAK PARK MD 05/09/18 Furosemide (Lasix) 40 Mg Tablet 40 MG PO DAILY, #30 TAB Prov: PALAK PARK MD 05/09/18 PALAK PARK MD May 09, 2018 14:10
[2018-05-09 14:34] LABS: HEMATOCRIT 43 % (40-54); MEAN CORPUSCULAR HEMOGLOBIN 32 PG (25-34); MEAN CORPUSCULAR HGB CONC 32 G/DL (32-36); MEAN CORPUSCULAR VOLUME 98 FL (80-99); WHITE BLOOD COUNT 8.4 10^3/uL (4.3-11.0)
[2018-05-09 14:35] LABS: BASOPHILS # (AUTO) 0.1 10^3/uL (0.0-0.1); BASOPHILS % (AUTO) 1 % (0-10); EOSINOPHILS # (AUTO) 0.1 10^3/uL (0.0-0.3); EOSINOPHILS % (AUTO) 1 % (0-10); LYMPHOCYTES # (AUTO) 1.3 X 10^3 (1.0-4.0); LYMPHOCYTES % (AUTO) 16 % (12-44); MONOCYTES # (AUTO) 0.6 X 10^3 (0.0-1.0); MONOCYTES % (AUTO) 8 % (0-12); NEUTROPHILS # (AUTO) 6.3 X 10^3 (1.8-7.8); NEUTROPHILS % (AUTO) 74 % (42-75); PLATELET COUNT 292 10^3/uL (130-400); RED CELL DISTRIBUTION WIDTH 14.4 % (10.0-14.5)
[2018-05-09 14:42] LABS: CARBON DIOXIDE 19 MMOL/L (21-32); CHLORIDE 100 MMOL/L (98-107); POTASSIUM 3.8 MMOL/L (3.6-5.0); SODIUM 141 MMOL/L (135-145)
[2018-05-09 14:43] LABS: ALANINE AMINOTRANSFERASE 16 U/L (0-55); ALBUMIN 3.5 GM/DL (3.2-4.5); ALKALINE PHOSPHATASE 113 U/L (40-136); BILIRUBIN,TOTAL 0.5 MG/DL (0.1-1.0); BUN/CREATININE RATIO 19; CALCIUM 8.9 MG/DL (8.5-10.1); CREATININE SERUM 0.77 MG/DL (0.60-1.30); GFR ESTIMATED > 60; GLUCOSE 99 MG/DL (70-105); TOTAL PROTEIN 6.7 GM/DL (6.4-8.2)
--- NOTE | 2018-05-09 14:59 | Diagnostic Imaging Report ---
EXAMINATION: Erect AP chest at 2:11 p.m. INDICATION: Shortness of breath. FINDINGS: The heart size is within normal limits and stable when compared to 04/11/2018. The abnormal density about the right hilum seen previously is again visualized and no different. The strands of atelectasis/scar formation in each lung base noted on the prior study are also unchanged. The right lung apex does seem more lucent than the left. This is probably related to bulla/bleb formation. There is no evidence for a pneumothorax, but if further evaluation for a pneumothorax is desired, then an expiration chest would be recommended. There is no evidence for failure, pneumonia, or for a pleural effusion. The mediastinum is not widened. The osseous structures are intact. The left-sided Port-A-Cath seen previously is unchanged in position. IMPRESSION: 1. The overall appearance of the chest has not changed significantly since the prior exam. The abnormal density about the right hilum seen previously is again evident and no different. 2. There is no clear evidence for a pneumothorax on the right. Recommendations as above. Dictated by: Dictated on workstation # [id number]
[2018-05-09] MEDS ORDERED: FUROSEMIDE 40 MG/4 ML INJ (LASIX) IVP ONE (15:45)
[2018-05-09] MEDS ORDERED: IPRA3AMP31 IH (16:13)
[2018-05-09] MEDS ORDERED: FURO-124 PO (16:13)
[2018-05-09 16:27] VITALS: BP 103/77
== END 2018-05-09 16:30 | disposition home or self-care (01) ==
LOC: EDUNIT# 13:42 → ER FS 13:44
DX: C34.32 Malignant neoplasm of lower lobe, left bronchus or lung (principal); J44.9 Chronic obstructive pulmonary disease, unspecified; I11.0 Hypertensive heart disease with heart failure; I50.9 Heart failure, unspecified; E03.9 Hypothyroidism, unspecified; Z85.820 Personal history of malignant melanoma of skin; Z87.19 Personal history of other diseases of the digestive system; Z79.51 Long term (current) use of inhaled steroids; Z79.01 Long term (current) use of anticoagulants; Z87.01 Personal history of pneumonia (recurrent); Z87.891 Personal history of nicotine dependence; Z90.89 Acquired absence of other organs; Z98.52 Vasectomy status
CPT/HCPCS: 36415; 71045; 80053; 83605; 83880; 84484; 85025; 87040; 93041

== ENCOUNTER 2018-05-13 12:43 | Outpatient (RCR) | payer MEDICARE, OTHER ==
--- NOTE | 2018-04-11 13:31 | Diagnostic Imaging Report ---
INDICATION: Shortness of air. Followup. COMPARISON: 03/29/2018. FINDINGS: Frontal and lateral radiographic views of the chest were obtained and show interval resolution of previously described small right apical pneumothorax. There is no pneumothorax or large effusion on either side. Scarring and fibro-atelectatic changes are noted within the bilateral lower lung johnson. Appearance is stable compared to prior study. More confluent density is again noted within the medial right infrahilar region and is unchanged as well. Cardiac silhouette and pulmonary vasculature are otherwise within normal limits. Left-sided subclavian Port-A-Cath is present with tip in the SVC. Bony structures show no gross acute abnormalities. IMPRESSION: 1. Interval resolution of right-sided pneumothorax. 2. No adverse interval change. 3. Stable more confluent density within the medial right infrahilar region. Findings could be on the basis of residual atelectasis and/or infiltrate. Correlation with patient's known malignancy, however, is also recommended. Dictated by: Dictated on workstation # [id number]
[2018-04-11 13:37] LABS: BASOPHILS % (AUTO) 0 % (0-10); EOSINOPHILS # (AUTO) 0.1 10^3/uL (0.0-0.3); EOSINOPHILS % (AUTO) 1 % (0-10); HEMATOCRIT 45 % (40-54); HEMOGLOBIN 14.6 G/DL (13.3-17.7); LYMPHOCYTES # (AUTO) 1.2 X 10^3 (1.0-4.0); LYMPHOCYTES % (AUTO) 11 % (12-44); MEAN CORPUSCULAR HEMOGLOBIN 31 PG (25-34); MEAN CORPUSCULAR HGB CONC 32 G/DL (32-36); MEAN CORPUSCULAR VOLUME 97 FL (80-99); MEAN PLATELET VOLUME 9.8 FL (7.4-10.4); MONOCYTES # (AUTO) 0.7 X 10^3 (0.0-1.0); MONOCYTES % (AUTO) 7 % (0-12); NEUTROPHILS # (AUTO) 8.9 X 10^3 (1.8-7.8); NEUTROPHILS % (AUTO) 82 % (42-75); PLATELET COUNT 249 10^3/uL (130-400); RED CELL DISTRIBUTION WIDTH 14.3 % (10.0-14.5); WHITE BLOOD COUNT 10.9 10^3/uL (4.3-11.0)
[2018-04-11 14:00] LABS: ALANINE AMINOTRANSFERASE 22 U/L (0-55); ALBUMIN 4.1 GM/DL (3.2-4.5); ALKALINE PHOSPHATASE 111 U/L (40-136); BILIRUBIN,TOTAL 0.3 MG/DL (0.1-1.0); BUN/CREATININE RATIO 24; CALCIUM 9.9 MG/DL (8.5-10.1); CARBON DIOXIDE 26 MMOL/L (21-32); CHLORIDE 102 MMOL/L (98-107); CREATININE SERUM 0.85 MG/DL (0.60-1.30); GFR ESTIMATED > 60; GLUCOSE 107 MG/DL (70-105); POTASSIUM 4.6 MMOL/L (3.6-5.0); SODIUM 141 MMOL/L (135-145); TOTAL PROTEIN 7.5 GM/DL (6.4-8.2)
[~2018-05-13 12:43] MED LIST changes: +FURO-124 PO; +IPRA3AMP31 IH
== END 2018-07-10 | disposition home or self-care (01) ==
LOC: ONC 12:43
PROVIDERS: ATTEND Internal Medicine Hematology & Oncology
DX: C34.81 Malignant neoplasm of overlapping sites of right bronchus and lung (principal); C77.1 Secondary and unspecified malignant neoplasm of intrathoracic lymph nodes; J44.9 Chronic obstructive pulmonary disease, unspecified; E03.9 Hypothyroidism, unspecified; Z86.718 Personal history of other venous thrombosis and embolism; Z79.01 Long term (current) use of anticoagulants; Z79.82 Long term (current) use of aspirin; Z79.899 Other long term (current) drug therapy; Z01.89 Encounter for other specified special examinations
CPT/HCPCS: 36415; 71046; 80053; 85025; 99213